=== PATIENT | female | born 1945 | race Caucasian/White ===

== ENCOUNTER 2016-12-04 11:05 | Outpatient (CLI) | payer MEDICARE ==
[2016-12-04 14:32] LABS: #Basophils 0.1 thou/uL (0.0-0.2); #Eosinphils 0.4 thou/uL (0.0-0.7); #Lymphocytes 1.8 thou/uL (1.20-3.40); #Monocytes 0.9 thou/uL (0.11-0.59); #Neutrophils 6.2 thou/uL (1.40-6.50); %Eosinophils 3.8 % (0.0-10.0); %Lymphocytes 18.9 % (21.0-51.0); %Monocytes 9.2 % (0.0-10.0); Hematocrit 38.4 % (36.0-47.0); Red Blood Cell (RBC) Count 4.01 mill/uL (4.20-5.40); White Blood Cell (WBC) Count 9.3 thou/uL (4.8-10.8)
[2016-12-04 14:58] LABS: Anion Gap 18 mmol/L (10-20); BUN (Urea Nitrogen) 21 mg/dL (9.8-20.1); Calc. Creatinine Clearance 0 mL/min (70-130); Calcium 9.1 mg/dL (7.8-10.44); Carbon Dioxide 36 mmol/L (23-31); Chloride 94 mmol/L (98-107); Estimated GFR-MDRD 47; LDL Cholesterol, Calculated 82 mg/dL
[2016-12-04 15:39] LABS: Hemoglobin A1c 5.5 % (4.0-6.0)
== END 2016-12-04 11:06 ==
LOC: NAVSJIPCSP 11:05
PROVIDERS: ATTEND Nurse Practitioner Family
DX: E11.9 Type 2 diabetes mellitus without complications (principal); I10 Essential (primary) hypertension; E78.5 Hyperlipidemia, unspecified; F32.9 Major depressive disorder, single episode, unspecified; J30.9 Allergic rhinitis, unspecified; J44.9 Chronic obstructive pulmonary disease, unspecified; Z79.899 Other long term (current) drug therapy
CPT/HCPCS: 36415; 80048; 80061; 83036; 85025

== ENCOUNTER 2017-07-09 08:48 | Outpatient (CLI) | payer MEDICARE ==
[2017-07-09 12:57] LABS: #Basophils 0.1 thou/uL (0.0-0.2); #Eosinphils 0.4 thou/uL (0.0-0.7); #Lymphocytes 2.2 thou/uL (1.20-3.40); #Monocytes 0.7 thou/uL (0.11-0.59); #Neutrophils 7.8 thou/uL (1.40-6.50); %Basophils 1.1 % (0.0-1.0); %Eosinophils 3.8 % (0.0-10.0); %Lymphocytes 19.2 % (21.0-51.0); %Monocytes 6.6 % (0.0-10.0); %Neutrophils 69.3 % (42.0-75.0); Hemoglobin 11.6 g/dL (12.0-16.0); Mean Corpuscular HGB CONC 32.1 g/dL (32.0-36.0); Mean Corpuscular Hemoglobin 30.4 pg (27.0-31.0); Mean Corpuscular Volume 94.5 fl (81.0-99.0); Mean Platelet Volume 7.4 fL (7.4-10.4); Platelet Count 275 thou/uL (130-400); RBC Distribution Width 13.2 % (11.5-14.5); Red Blood Cell (RBC) Count 3.82 mill/uL (4.20-5.40); White Blood Cell (WBC) Count 11.3 thou/uL (4.8-10.8)
[2017-07-09 13:14] LABS: Bilirubin Negative (Negative); Blood, Urine Trace (Negative); Glucose, Urine (Dipstick) Negative (Negative); Leukocyte Large (Negative); Nitrite Negative (Negative); Protein, Urine (Dipstick) Trace mg/dL (Neg-Trace); Specific Gravity, Urine 1.015 (1.005-1.030); Urobilinogen 0.2 mg/dL (0.2-1.0)
[2017-07-09 13:18] LABS: Clarity Cloudy (Clear)
[2017-07-09 14:17] LABS: RBC/HPF 0-3 HPF (0-3)
[2017-07-09 14:18] LABS: Bacteria/HPF 2+ HPF (None Seen); Squamous Epithelial 21-50 HPF (0-3); WBC/HPF 21-50 HPF (0-3)
[2017-07-09 18:13] LABS: ALT (SGPT) 16 U/L (8-55); AST (SGOT) 18 U/L (5-34); Albumin 4.3 g/dL (3.4-4.8); Alkaline Phosphatase 119 U/L (40-150); Anion Gap 22 mmol/L (10-20); BUN (Urea Nitrogen) 19 mg/dL (9.8-20.1); Bilirubin, Direct 0.2 mg/dL (0.1-0.3); Bilirubin, Total 0.4 mg/dL (0.2-1.2); Calc. Creatinine Clearance 0 mL/min (70-130); Calcium 9.5 mg/dL (7.8-10.44); Carbon Dioxide 34 mmol/L (23-31); Cardiac Risk 3.5 (Less than 4.5); Chloride 93 mmol/L (98-107); Cholesterol 141 mg/dl (< 200 Desired); Estimated GFR-MDRD 56; Glucose 95 mg/dL (80-115); HDL Cholesterol 40 mg/dL (>60 Neg Risk); LDL Cholesterol, Calculated 79 mg/dL; Potassium 3.5 mmol/L (3.5-5.1); Protein, Total 6.9 g/dL (6.0-8.3); Sodium 145 mmol/L (136-145); Triglycerides 111 mg/dL (Less than 150)
[2017-07-09 18:23] LABS: Hemoglobin A1c 5.4 % (4.0-6.0)
== END 2017-07-09 08:49 | disposition home or self-care (01) ==
LOC: NAVSJIPCSP 08:48
PROVIDERS: ATTEND Family Medicine
DX: E78.5 Hyperlipidemia, unspecified (principal); E11.9 Type 2 diabetes mellitus without complications; I10 Essential (primary) hypertension; R82.90 Unspecified abnormal findings in urine; Z79.899 Other long term (current) drug therapy
CPT/HCPCS: 36415; 80048; 80061; 80076; 81003; 81015; 83036; 84443; 85025; 87086

== ENCOUNTER 2018-08-07 17:49 | Inpatient (IN) | payer MEDICARE ==
[~2018-08-07 17:49] MED LIST: Iopamidol 370 76% 100 ML VIAL ONE
[2018-08-07 18:20] VITALS: BMI 33.0
[2018-08-07] MEDS ORDERED: Acetaminophen 500 MG TAB PO PRN (20:15)
[2018-08-07] MEDS ORDERED: Cepastat Lozenges 1 LOZ PO PRN (20:15)
[2018-08-07] MEDS ORDERED: Albuterol Sulfate 2.5 mg/3 ml Neb NEB PRN (20:15)
[2018-08-07] MEDS ORDERED: Acetaminophen 325 MG TAB PO PRN (20:16)
[2018-08-07] MEDS ORDERED: Dextrose 50% Abboject 50 ML SYRINGE SLOW IVP PRN (20:16)
[2018-08-07] MEDS ORDERED: HumaLOG 300 UNITS/3 ML VIAL SC PRN ×2 (20:16)
[2018-08-07] MEDS ORDERED: Milk Of Magnesia 30 ML UDCUP PO PRN (20:16)
[2018-08-07] MEDS ORDERED: Dextrose 5% in Water 1,000 ML IV PRN (20:16)
[2018-08-07] MEDS ORDERED: Loperamide HCl 2 MG CAP PO PRN (20:16)
[2018-08-07] MEDS: metFORMIN 500 MG TAB PO SCH (20:58)
[2018-08-07] MEDS: Melatonin 3 MG TAB PO PRN (20:58)
[2018-08-07] MEDS: Atorvastatin Calcium 20 MG TAB PO SCH (20:58)
[2018-08-07 22:21] LABS: Bilirubin Negative (Negative); Blood, Urine Negative (Negative); Clarity Clear (Clear); Glucose, Urine (Dipstick) Negative (Negative); Leukocyte Negative (Negative); Nitrite Negative (Negative); Protein, Urine (Dipstick) Negative (Neg-Trace); Urobilinogen 0.2 mg/dL (0.2-1.0)
[2018-08-07 22:23] LABS: Bacteria/HPF None Seen HPF (None Seen); RBC/HPF None Seen HPF (0-3); Squamous Epithelial None Seen HPF (0-3); WBC/HPF None Seen HPF (0-3)
[2018-08-08 05:45] LABS: #Eosinphils 0.4 thou/uL (0.0-0.7); #Lymphocytes 0.9 thou/uL (1.20-3.40); #Monocytes 0.6 thou/uL (0.11-0.59); #Neutrophils 3.8 thou/uL (1.40-6.50); %Basophils 0.7 % (0.0-1.0); %Eosinophils 6.3 % (0.0-10.0); %Lymphocytes 15.3 % (21.0-51.0); %Monocytes 10.8 % (0.0-10.0); Hemoglobin 9.2 g/dL (12.0-16.0); Mean Corpuscular HGB CONC 31.3 g/dL (32.0-36.0); Mean Corpuscular Hemoglobin 29.2 pg (27.0-31.0); Mean Corpuscular Volume 93.3 fL (78.0-98.0); Mean Platelet Volume 8.4 fL (7.4-10.4); Platelet Count 159 thou/uL (130-400); RBC Distribution Width 13.6 % (11.5-14.5); Red Blood Cell (RBC) Count 3.15 mill/uL (4.20-5.40); White Blood Cell (WBC) Count 5.7 thou/uL (4.8-10.8)
[2018-08-08 05:56] LABS: ALT (SGPT) 17 U/L (8-55); AST (SGOT) 11 U/L (5-34); Albumin 2.9 g/dL (3.4-4.8); Alkaline Phosphatase 82 U/L (40-150); Anion Gap 12 mmol/L (10-20); BUN (Urea Nitrogen) 6 mg/dL (9.8-20.1); Bilirubin, Total 0.4 mg/dL (0.2-1.2); Calc. Creatinine Clearance 87 mL/min (70-130); Calcium 8.7 mg/dL (7.8-10.44); Carbon Dioxide 27 mmol/L (23-31); Chloride 105 mmol/L (98-107); Estimated GFR-MDRD 72; Globulin 2.5 g/dL (2.4-3.5); Glucose 102 mg/dL (83-110); Potassium 4.2 mmol/L (3.5-5.1); Protein, Total 5.4 g/dL (6.0-8.3); Sodium 140 mmol/L (136-145)
[2018-08-08] MEDS ORDERED: Non-Formulary Item 1 EACH (Fluticasone/Vilanterol [Breo Ellipta 200-25 Mcg Inh] 1 EACH) IH SCH (09:00)
[2018-08-08] MEDS: Mometasone/Formoterol 60 PUFF AER INH SCH (09:27)
[2018-08-08] MEDS: FLUoxetine HCl 20 MG CAP PO SCH (09:29)
[2018-08-08] MEDS: Polyethylene Glycol 3350 17 GM Packet PO SCH (09:29)
[2018-08-08] MEDS: Potassium Chloride 10 MEQ TAB PO SCH (09:29)
[2018-08-08] MEDS: Multivitamin W/ Minerals 1 TAB PO SCH (09:29)
--- NOTE | 2018-08-08 10:25 | HP ---
DATE OF ADMISSION: 08/07/2018 HISTORY OF PRESENT ILLNESS: Ms. Garcia is a pleasant 73-year-old white female, well known to me morenita t I have been taken care for several years. She does have a history of COPD, hypertension, diabetes. The patient initially was admitted to [facility] on 07/14/2018 with community-acquired pneum onia. She has been sick for approximately 10-14 days and required BiPAP on initial admission to the hospital. She was quickly weaned to high dose oxygen and did very well. Eventually, she was stabili zed after several days and [facility]. At the rehab hospital, she was noted t o have some acute encephalopathy which had been improving. After several days, her delirium started getting worse and she stopped eating and drinking. She would not follow commands, she became hyperna tremic and very agitated, was transferred back to the hospital for further evaluation. CT scan, MRI showed no significant problems except for white matter disease. She was seen in consultation by Dr. Pierce because of her atypical delirium and mental status changes. She was treated conservatively. Eventually, her toxic metabolic encephalopathy has improved. the point that she is able to be transferred to [facility] for physical therapy and occupational therapy to increase her strength and stamina. At that time, she is alert and oriented x3 and other times she is alert an d oriented x1. PAST MEDICAL HISTORY: Positive for hypertension; COPD; GERD; hyperlipidemia; diabetes, type 2; insom odette; and chronic renal insufficiency, stage 2. Most recent diagnosis include, 1. Acute on chronic respiratory failure with hypoxemia. 2. Encephalopathy. 3. Hypernatremia. 4. Diabetes, type 2. 5. Hypertension. 6. Obesity. The patient also has had hypernatremia, acute kidney illness, hypokalemia, leukocytosis with possible leukemoid reaction and possible renal insufficiency was ruled out. PAST SURGICAL HISTORY: Positive for . FAMILY HISTORY: Reveals patient's father , but had heart disease. The patient's mother had some type of rare blood disease. The patient has 2 sons and 2 daughters. SOCIAL HISTORY: Reveals the patient is a former smoker and quit smoking in 2006, but had a 30-year h istory of smoking. She denies any drug use. Does drink 1 or 2 cups of caffeine daily. 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 She is . PRESENT MEDICATIONS: Reveal the patient presently is on the following: Tylenol 500 q.4 hours p.r.n. , albuterol 2.5 nebs q.6 hours scheduled then p.r.n., Lipitor 20 mg at bedtime, Prozac 20 mg daily, H umalog mild sliding scale, Theragran-M, melatonin 9 mg at bedtime, metformin 500 mg at bedtime inhaler 2 puffs daily, Protonix 40 mg daily, MiraLax 17 grams daily, potassium chloride 10 mEq daily, throat lozenges p.r.n. ALLERGIES: The patient has no known drug allergies. REVIEW OF SYSTEMS: Constitutional: Reveal the patient denies any fever, chills, night sweats at thi s time. She states her appetite is only fair, but she is very tired and weak. HEENT: Reveals the p atient denies any visual changes or hearing changes. Respiratory: Reveals the patient does complain of some dyspnea at times. Has no productive sputum. She does have a history of asthma and cough. Cardiovascular: The patient denies any cardiovascular problems including PND, edema, chest pain, ort hopnea, or claudication. She does have dyspnea on exertion. Gastrointestinal: The patient is negat jaun for nausea, vomiting, diarrhea, or constipation. She has poor appetite, but is improving. Genit ourinary: The patient denies nocturia, urgency, hematuria, frequency, dysuria, or incontinence. Mus culoskeletal: The patient denies any significant swelling, joint pain or stiffness, but she does hav e weakness. Skin: Denies any skin rashes. PHYSICAL EXAMINATION: GENERAL: This is a well-developed, well-nourished, slightly obese, pleasant white female, in no appa rent distress at this time. HEENT: Reveals normocephalic, nontraumatic cranium. The pupils are equally round and reactive. Ext raocular movements are intact. Nose and throat are slightly dry, but clear. NECK: Supple, without mass, nodes or bruits. LUNGS: Chest is clear to auscultation. No rales, rhonchi or wheezes are heard at this time. The pa tient's lung sounds are distant and shallow, but clear. The patient is presently on 3 liters, sattin g at 94% to 96%. HEART: Reveals a regular rate and rhythm without murmurs, gallops or rubs. ABDOMEN: Soft, obese, nontender, without organomegaly. Normal bowel sounds are noted. No rebound o r guarding is noted. : Deferred. EXTREMITIES: Reveal no clubbing, cyanosis with trace edema. NEUROLOGIC: The patient is oriented to person, place, and time and she immediately recognizes me and says my name on admission. ASSESSMENT: 1. Recent community-acquired pneumonia. 2. Acute exacerbation of chronic obstructive pulmonary disease. 3. Hypernatremia. 4. Respiratory hypoxemia. 5. Altered mental status, much improved. 6. Toxic metabolic encephalopathy. 7. Acute renal injury, much improved. 8. Diabetes, type 2. 9. Hypertension. 10. Leukocytosis, resolved. 11. Hyperlipidemia. PLAN: 1. The patient admitted to the hospital. We will continue her present medications. 2. We will consult physical therapy and occupational therapy to start her therapy. 3. We will repeat labs in the morning along with urinalysis.
[2018-08-08] MEDS ORDERED: Acetaminophen 500 MG TAB PO PRN ×2 (11:11→11:15)
--- NOTE | 2018-08-08 13:56 | PRG ---
DATE OF SERVICE: 08/08/2018 DATE OF ADMISSION: 08/07/2018 SUBJECTIVE: Ms. Garcia is a very pleasant 73-year-old white female that developed respiratory distr ess and presented to [place] [facility]. She was admitted and placed in ICU after several days. There, s he was stabilized and [facility]. In the rehab, she became delirious and had toxi c metabolic encephalopathy which got progressively worse. She was transferred back to [facility] where she spent another week before she was gradually improved to the point that she could part icipate in therapy again. She was transferred back to [facility] for PT and OT to in crease her strength and stamina hopefully for continued clearing. PHYSICAL EXAMINATION: VITAL SIGNS: Today reveal blood pressure 113/58, pulse 82-88, respirations 18-20, O2 sat 97%-99% on 2 liters, temperature 98.2. GENERAL: This is a well-developed, well-nourished, slightly obese white female that is much more sheeba ke and talkative today. She is much less irritable and encephalopathic. HEENT: Reveals normocephalic, nontraumatic cranium. Pupils are equal, round, and reactive. Extraoc ular movements intact. Nose and throat are slightly dry. NECK: Supple, without mass, nodes or bruits. CHEST: Clear to auscultation. No rales, rhonchi or wheezes are heard. HEART: Reveals a regular rate and rhythm without murmurs, gallops or rubs. ABDOMEN: Somewhat obese, soft, nontender, without organomegaly. Normal bowel sounds are noted. No rebound or guarding is noted. : Deferred. EXTREMITIES: Reveal no clubbing, cyanosis or edema. NEUROLOGIC: Patient is oriented to person, place and time. The patient recognizes me again and blake gnizes her brother. LABORATORY DATA: This morning revealed white count 5,700 with hemoglobin 9.2, hematocrit 29.4, plate let count 159,000. Chemistries reveal sodium 140, potassium 4.2, chloride 105, carbon dioxide 27 wit h creatinine of 0.79. Point of care sugar was 16. Liver enzymes are normal. IMPRESSION: 1. Recent community-acquired pneumonia requiring ICU admission. 2. Acute exacerbation of chronic obstructive pulmonary disease. 3. Hypernatremia. 4. Respiratory hypoxemia. 5. Altered mental status, much improved. 6. Toxic metabolic encephalopathy. 7. Acute renal insufficiency, improved. 8. Diabetes type 2. 9. Hypertension. 10. Leukocytosis, resolved. 11. Hyperlipidemia. 12. Generalized weakness. PLAN: 1. The patient is admitted to the hospital for PT and OT. 2. She will continue her present medication. 3. Stress ulcer prophylaxis. 4. Decubitus precautions. 5. Deep venous thrombosis prophylaxis. 6. Physical therapy and occupational therapy.
[2018-08-08] MEDS: Atorvastatin Calcium 20 MG TAB PO SCH (20:22)
[2018-08-08] MEDS: metFORMIN 500 MG TAB PO SCH (20:22)
[2018-08-08] MEDS: Melatonin 3 MG TAB PO PRN (22:23)
--- NOTE | 2018-08-09 08:17 | PRG ---
DATE OF SERVICE: 08/09/2018 SUBJECTIVE: Ms. Garcia is a very pleasant 73-year-old white female of mine that presented to the em ergency room at [place] with respiratory distress. She had community-acquired pneumonia on top of her acute exacerbation of COPD. She eventually stabilized and transferred to [facility]. S he was somewhat delirious on arrival and became worse over the next several days. She was transferre d back to [place] where she spent another week with some type of atypical delirium or mental statu s change. She is much improved and is now transferred to [facility] for PT and OT to increase her strength and stamina. The patient states she is doing well today except she did not go to bed until about 3:00 and then wok e up about 6:00 this morning. She states melatonin usually works well and she had 9 mg last night, b ut she normally takes 10-20. We will increase her to 12 mg a day. PHYSICAL EXAMINATION: VITAL SIGNS: Today reveal blood pressure is pending, pulse today 87, respirations 18, O2 sat 96% on 2 liters. GENERAL: Reveals a well-developed, well-nourished, very pleasant white female in no apparent distres s at this time. HEENT: Reveals normocephalic, nontraumatic cranium. Pupils are equally round and reactive. Extraoc ular movements intact. Nose and throat are somewhat dry, but clear. NECK: Supple, without masses, nodes or bruits. LUNGS: Chest is clear to auscultation. No rales, no rhonchi, no wheezes are heard. Breath sounds a re somewhat distant, but much improved and clear. CARDIOVASCULAR: Heart reveals a regular rate and rhythm without murmurs, gallops or rubs. ABDOMEN: Obese, soft, nontender, without organomegaly. Normal bowel sounds are heard in all 4 quadr ants. No rebound or guarding is noted. GENITOURINARY: Deferred. EXTREMITIES: Reveal no clubbing, cyanosis or edema. NEUROLOGIC: The patient is oriented to person, place, time, but she is at times somewhat confused an d delirious, but is much improved. She does recognize her son who is here this morning, Saul. LABORATORY DATA: Today reveals her Accu-Cheks were 97 yesterday morning, 160 before lunch, 111 befor e supper, 102 before bedtime and 106 this morning. We will stop her Accu-Cheks. ASSESSMENT: 1. Community-acquired pneumonia requiring ICU admission, resolved. 2. Acute exacerbation of chronic obstructive pulmonary disease, much improved. 3. Hypernatremia, stable. 4. Respiratory hypoxemia, improved. 5. Altered mental status, much improved, but not back to baseline. 6. Toxic metabolic encephalopathy, much improved. 7. Acute renal insufficiency, much improved. 8. Diabetes type 2, stable. 9. Hypertension. 10. Leukocytosis, resolved. 11. Hyperlipidemia. 12. Generalized weakness. PLAN: 1. The patient will continue present medications. 2. We will stop her Accu-Cheks a.c. and at bedtime. 3. Continue stress ulcer prophylaxis. 4. Continue decubitus precautions. 5. Continue deep venous thrombosis prophylaxis per sequential compression devices. 6. Continue physical therapy and occupational therapy. 7. Continue to monitor the patient's mental status.
[2018-08-09] MEDS: Polyethylene Glycol 3350 17 GM Packet PO SCH (08:23)
[2018-08-09] MEDS: Mometasone/Formoterol 60 PUFF AER INH SCH (08:23)
[2018-08-09] MEDS: Multivitamin W/ Minerals 1 TAB PO SCH (08:24)
[2018-08-09] MEDS: Potassium Chloride 10 MEQ TAB PO SCH (08:24)
[2018-08-09] MEDS: FLUoxetine HCl 20 MG CAP PO SCH (08:24)
[2018-08-09] MEDS: Melatonin 3 MG TAB PO SCH (20:15)
[2018-08-09] MEDS: Atorvastatin Calcium 20 MG TAB PO SCH (20:16)
[2018-08-09] MEDS: metFORMIN 500 MG TAB PO SCH (20:16)
[2018-08-10] MEDS: Multivitamin W/ Minerals 1 TAB PO SCH (08:16)
[2018-08-10] MEDS: Polyethylene Glycol 3350 17 GM Packet PO SCH (08:16)
[2018-08-10] MEDS: FLUoxetine HCl 20 MG CAP PO SCH (08:16)
[2018-08-10] MEDS: Potassium Chloride 10 MEQ TAB PO SCH (08:16)
[2018-08-10] MEDS: Mometasone/Formoterol 60 PUFF AER INH SCH (08:17)
--- NOTE | 2018-08-10 09:17 | PRG ---
DATE OF SERVICE: 08/10/2018 DATE OF ADMISSION: 08/07/2018 HISTORY OF PRESENT ILLNESS: Ms. Garcia is a very pleasant 73-year-old white female, who presented t o the emergency room at [place] with respiratory distress. She was found to have community-acquir ed pneumonia on top of her acute exacerbation of the COPD. She was stabilized and transferred to [facility] where she had significant increased delirium. She was transferred back to [place] whe re diagnosis of atypical delirium with mental status changes was noted. No changes were made. The p atient has gradually improved now. She is transferred to [facility] for continued ph ysical therapy and occupational therapy to increase her strength and stamina. Patient was found this morning at 06:15, in her room, working a puzzle on her iPad. She is much more alert and oriented x3. She is very animated and states she is going to get better. PHYSICAL EXAMINATION: VITAL SIGNS: Today, reveal blood pressure 127/64, pulse 84-91, respirations 18-19, O2 sat 95% on 2 l iters, T-max 98.3. GENERAL: This is a well-developed, well-nourished, slightly obese white female, in no apparent distr ess at this time. HEENT: Reveals normocephalic, nontraumatic cranium. Pupils equally round and reactive. Extraocular movements intact. Nose with motor are dry, but clear. NECK: Supple, without mass, nodes, or bruits. LUNGS: Chest is clear to auscultation. No rales, rhonchi, wheezes, or cough is heard. CARDIOVASCULAR: Reveals a regular rate and rhythm without murmurs, gallops, or rubs. ABDOMEN: Soft, nontender, without organomegaly. No rebound or guarding is noted. Bowel sounds in a ll 4 quadrants are noted. EXAM: Deferred. EXTREMITIES: Reveal no clubbing, cyanosis, or edema. The patient is oriented x3 at this time. She still has pressured speech. She does recognize me. ASSESSMENT: 1. Community-acquired pneumonia, requiring ICU admission, resolved. 2. Acute exacerbation of chronic obstructive pulmonary disease, much improved. 3. Hypernatremia, stable. 4. Respiratory hypoxia, stable. 5. Altered mental status continues to gradually improve. 6. Toxic metabolic encephalopathy, much improved. 7. Acute renal insufficiency, much improved. 8. Diabetes, type 2, stable. 9. Hypertension. 10. Leukocytosis, resolved. 11. Hyperlipidemia. 12. Generalized weakness. PLAN: 1. The patient will continue her present medications. 2. Continue stress ulcer prophylaxis. 3. Continue decubitus precautions. 4. Continue deep venous thrombosis prophylaxis per sequential compression device. 5. Continue PT and OT. 6. Continue to monitor the patient as to mental status.
[2018-08-10] MEDS: Atorvastatin Calcium 20 MG TAB PO SCH (20:39)
[2018-08-10] MEDS: Melatonin 3 MG TAB PO SCH (20:39)
[2018-08-10] MEDS: metFORMIN 500 MG TAB PO SCH (20:39)
[2018-08-11] MEDS: Mometasone/Formoterol 60 PUFF AER INH SCH (08:18)
[2018-08-11] MEDS: FLUoxetine HCl 20 MG CAP PO SCH (08:18)
[2018-08-11] MEDS: Multivitamin W/ Minerals 1 TAB PO SCH (08:19)
[2018-08-11] MEDS: Potassium Chloride 10 MEQ TAB PO SCH (08:19)
[2018-08-11] MEDS: Polyethylene Glycol 3350 17 GM Packet PO SCH (08:19)
--- NOTE | 2018-08-11 10:15 | PRG ---
DATE OF SERVICE: 08/11/2018 SUBJECTIVE: Ms. Garcia is a very pleasant 73-year-old white female, who presented to the emergency room at [facility] in respiratory distress. She had a community-acquired pneumonia on top o f acute exacerbation of her COPD. She was in ICU and then eventually was stabilized and [facility]. Unfortunately, she had continuing delirium, which got progressively worse. S he was transferred back to [facility] where she was diagnosed with atypical delirium and tox ic metabolic encephalopathy. She gradually began to clear and did better. She eventually was stabil ized and transferred to [facility] for continue PT and OT. The patient states she is doing well this morning. She is not confined to her bed anymore and she is not on a bed guard. She is excited about that and she is excited about getting therapy again today. OBJECTIVE: VITAL SIGNS: This morning reveal blood pressure 125/70, pulse 96, respirations 18, O2 sat 95% to 98% on 2 liters. T-max is 98.5. LABORATORY DATA: No labs were done today. We have labs ordered for tomorrow. PHYSICAL EXAMINATION: GENERAL: This is a well-developed, well-nourished, slightly obese white female in no apparent distre ss at this time. HEENT: Reveals normocephalic, nontraumatic cranium. Pupils are equally round and reactive. Extraoc ular movements intact. Nose and throat are moist today. NECK: Supple, without mass, nodes, bruits. CHEST: Clear to auscultation. No rales, rhonchi, wheezes or cough is heard. CARDIOVASCULAR: Reveals a regular rate and rhythm without murmurs, gallops or rubs. ABDOMEN: Obese, soft, nontender, without organomegaly. No rebound or guarding is noted Bowel sounds are heard in all 4 quadrants. : Deferred. EXTREMITIES: Reveal no clubbing, cyanosis or edema. The patient oriented x3 this morning. She stil l has pressured speech with much less than even yesterday. ASSESSMENT: 1. Community-acquired pneumonia, requiring ICU admission, resolved. 2. Acute exacerbation of chronic obstructive pulmonary disease, much improved. 3. Hypernatremia, improved. 4. Respiratory hypoxemia, stable. 5. Altered mental status gradually continues to improve. 6. Toxic metabolic encephalopathy, much improved. 7. Acute renal insufficiency, much improved. 8. Diabetes type 2, stable. 9. Hypertension. 10. Leukocytosis, resolved. 11. Hyperlipidemia. 12. Generalized weakness. PLAN: 1. Labs tomorrow morning. 2. Continue present medications and therapy. 3. Continue stress ulcer prophylaxis. 4. Continue decubitus precautions. 5. Continue deep venous thrombosis prophylaxis per sequential compression devices. 6. Continue PT and OT. 7. Continue to monitor the patient's mental status.
[2018-08-11] MEDS: Melatonin 3 MG TAB PO SCH (20:52)
[2018-08-11] MEDS: Atorvastatin Calcium 20 MG TAB PO SCH (20:53)
[2018-08-11] MEDS: metFORMIN 500 MG TAB PO SCH (20:53)
[2018-08-12 05:49] LABS: #Eosinphils 0.2 thou/uL (0.0-0.7); #Lymphocytes 0.9 thou/uL (1.20-3.40); #Monocytes 0.6 thou/uL (0.11-0.59); #Neutrophils 4.9 thou/uL (1.40-6.50); %Basophils 0.6 % (0.0-1.0); %Eosinophils 3.6 % (0.0-10.0); %Lymphocytes 13.8 % (21.0-51.0); %Monocytes 9.3 % (0.0-10.0); %Neutrophils 72.6 % (42.0-75.0); Hemoglobin 8.7 g/dL (12.0-16.0); Mean Corpuscular HGB CONC 31.8 g/dL (32.0-36.0); Mean Corpuscular Hemoglobin 29.1 pg (27.0-31.0); Mean Corpuscular Volume 91.5 fL (78.0-98.0); Mean Platelet Volume 6.9 fL (7.4-10.4); Platelet Count 201 thou/uL (130-400); RBC Distribution Width 13.3 % (11.5-14.5); White Blood Cell (WBC) Count 6.7 thou/uL (4.8-10.8)
[2018-08-12 06:01] LABS: ALT (SGPT) 14 U/L (8-55); AST (SGOT) 11 U/L (5-34); Alkaline Phosphatase 88 U/L (40-150); Anion Gap 11 mmol/L (10-20); BUN (Urea Nitrogen) 9 mg/dL (9.8-20.1); Bilirubin, Total 0.3 mg/dL (0.2-1.2); Calc. Creatinine Clearance 78 mL/min (70-130); Calcium 9.4 mg/dL (7.8-10.44); Carbon Dioxide 29 mmol/L (23-31); Chloride 104 mmol/L (98-107); Estimated GFR-MDRD 63; Globulin 2.7 g/dL (2.4-3.5); Glucose 105 mg/dL (83-110); Potassium 4.3 mmol/L (3.5-5.1); Protein, Total 5.7 g/dL (6.0-8.3); Sodium 140 mmol/L (136-145)
[2018-08-12] MEDS: Mometasone/Formoterol 60 PUFF AER INH SCH (08:30)
[2018-08-12] MEDS: Potassium Chloride 10 MEQ TAB PO SCH (08:30)
[2018-08-12] MEDS: Multivitamin W/ Minerals 1 TAB PO SCH (08:30)
[2018-08-12] MEDS: FLUoxetine HCl 20 MG CAP PO SCH (08:30)
[2018-08-12] MEDS: Polyethylene Glycol 3350 17 GM Packet PO SCH (08:30)
[2018-08-12] MEDS: metFORMIN 500 MG TAB PO SCH (20:36)
[2018-08-12] MEDS: Atorvastatin Calcium 20 MG TAB PO SCH (20:36)
[2018-08-12] MEDS: Melatonin 3 MG TAB PO SCH (20:36)
--- NOTE | 2018-08-12 21:59 | PRG ---
DATE OF SERVICE: 08/12/2018 DATE OF ADMISSION: 08/07/2018 HISTORY OF PRESENT ILLNESS: Ms. Garcia is a very pleasant 73-year-old white female that unfortunate ly had a community-acquired pneumonia and acute exacerbation of her COPD. She was placed in ICU at [facility], eventually stabilized and transferred to [facility]. Unfortunately, she had continued delirium and which got progressively worse. She was transferred back to [facility], where she was diagnosed with atypical delirium and toxic metabolic encephalopathy. She was eventu ally began to clear and was transferred to [facility] for continued physical therapy and occ upational therapy in the swing bed format. The patient seems to be doing much better today and she recognizes me completely. Her speech is not so forth. She states she is doing better. PHYSICAL EXAMINATION: VITAL SIGNS: Today reveal blood pressure this morning 138/61, pulse 91, respirations 18, O2 saturati on 98% on 2 liters. T-max 97.6. GENERAL: This is a well-developed, well-nourished, slightly obese white female in no apparent distre ss at this time. HEENT: Reveals normocephalic, nontraumatic cranium. Pupils are equally round and reactive. Extraoc ular movements intact. Nose and throat are slightly dry. NECK: Supple without mass, nodes, bruits. CHEST: Clear to auscultation. No rales, rhonchi, wheezes, or cough is heard. CARDIOVASCULAR: Reveals a regular rate and rhythm without murmurs, gallops, or rubs. ABDOMEN: Obese, soft, nontender without organomegaly. Normal bowel sounds are heard in all 4 quadra nts. No rebound or guarding is noted. : Deferred. EXTREMITIES: Reveal no clubbing, cyanosis, or edema. IMPRESSION: 1. Community-acquired pneumonia requiring ICU admission, resolved. 2. Acute exacerbation of chronic obstructive pulmonary disease, much improved. 3. Hypernatremia. 4. Respiratory status. 5. Altered mental status with acute delirium. 6. Toxic metabolic encephalopathy, much improved. 7. Acute renal insufficiency, much improved. 8. Diabetes, type 2. 9. Hypertension. 10. Leukocytosis. 11. Hyperlipidemia. 12. Generalized weakness. PLAN: 1. Continue present medications. 2. Continue stress ulcer prophylaxis. 3. Continue decubitus precautions. 4. Continue deep venous thrombosis prophylaxis. 5. Continue physical therapy and occupational therapy. 6. Continue to monitor the patient's mental status.
[2018-08-13] MEDS: Acetaminophen 325 MG TAB PO PRN ×2 (03:08→20:15)
[2018-08-13] MEDS: Mometasone/Formoterol 60 PUFF AER INH SCH (09:11)
[2018-08-13] MEDS: Polyethylene Glycol 3350 17 GM Packet PO SCH ×2 (09:12→09:13)
[2018-08-13] MEDS: Multivitamin W/ Minerals 1 TAB PO SCH (09:12)
[2018-08-13] MEDS: FLUoxetine HCl 20 MG CAP PO SCH (09:12)
[2018-08-13] MEDS: Potassium Chloride 10 MEQ TAB PO SCH (09:12)
[2018-08-13] MEDS: metFORMIN 500 MG TAB PO SCH (20:15)
[2018-08-13] MEDS: Atorvastatin Calcium 20 MG TAB PO SCH (20:15)
[2018-08-13] MEDS: Melatonin 3 MG TAB PO SCH (20:16)
--- NOTE | 2018-08-13 20:52 | PRG ---
DATE OF SERVICE: 08/13/2018 DATE OF ADMISSION: 08/07/2018 HISTORY OF PRESENT ILLNESS: Ms. Garcia is a very pleasant 89-year-old white female that had a commu nity-acquired pneumonia and acute exacerbation of her COPD. She had to be admitted to the intensive care unit at . She was eventually stabilized and [facility], b ut developed severe worsening delirium. She was transferred back to where diagno sis of atypical delirium and toxic metabolic encephalopathy were done. Eventually, stabilized and tr ansferred to [facility] for continued PT and OT in a swing bed format. The patient continues seem to get better mentally every day. She is slowing down and does not have p ressured speech. She is oriented x3 today. PHYSICAL EXAMINATION: VITAL SIGNS: Reveals this morning 100/56, pulse 92, respirations 20, O2 saturation 97% on 2 liters, T-max 97.9. GENERAL: This is a well-developed, well-nourished, very pleasant white female in no apparent distres s at this time. HEENT: Reveals normocephalic, nontraumatic cranium. Pupils are equally round and reactive. Extraoc ular movements intact. Nose and throat are slightly dry. NECK: Supple, without mass, nodes or bruits. CHEST: Clear to auscultation. No rales, rhonchi or wheezes are heard. HEART: Reveals a regular rate and rhythm without murmurs, gallops or rubs. ABDOMEN: Soft, nontender, without organomegaly, normal bowel sounds are noted. No rebound or guardi ng is noted. : Deferred. EXTREMITIES: Reveal no clubbing, cyanosis or edema. IMPRESSION: 1. Community-acquired pneumonia. 2. Acute exacerbation of chronic obstructive pulmonary disease. 3. Hypernatremia. 4. Respiratory status, acute respiratory failure. 5. Altered mental status with acute delirium, much improved. 6. Toxic metabolic encephalopathy, improved. 7. Acute renal insufficiency, improved. 8. Diabetes type 2. 9. Hypertension. 10. Leukocytosis. 11. Hyperlipidemia. 12. Generalized weakness. PLAN: 1. Continue present medications. 2. Continue physical therapy and occupational therapy. 3. Continue stress ulcer prophylaxis. 4. Decubitus precautions. 5. Deep venous thrombosis prophylaxis. 6. Continue to monitor the patient's mental status. 7. Anticipate discharge within the next week. 8. We will talk with physical therapy tomorrow.
[2018-08-14] MEDS: Polyethylene Glycol 3350 17 GM Packet PO SCH (09:02)
[2018-08-14] MEDS: Mometasone/Formoterol 60 PUFF AER INH SCH (09:03)
[2018-08-14] MEDS: Multivitamin W/ Minerals 1 TAB PO SCH (09:04)
[2018-08-14] MEDS: Potassium Chloride 10 MEQ TAB PO SCH (09:04)
[2018-08-14] MEDS: FLUoxetine HCl 20 MG CAP PO SCH (09:04)
--- NOTE | 2018-08-14 14:44 | PRG ---
DATE OF SERVICE: 08/14/2018. SUBJECTIVE: Ms. Garcia is a very pleasant 73-year-old white female that comes in with community-acq uired pneumonia and acute exacerbation of her COPD. She was admitted to [facility]. Eventu ally, she was stabilized and [facility] Unfortunately, she developed severe atyp ical delirium and had to be transferred back to [facility]. She was stabilized and then was transferred to [facility] to continue PT and OT. The patient seems to be getting a little bit better every day. She has slowed, pressured speech and she began to be able to participate much better in her physical therapy and occupational therapy. Sh e states she walked the nurse's station twice with only one rest. OBJECTIVE: VITAL SIGNS: Reveal blood pressure this morning was 138/62, pulse 100, respirations 20, O2 sat 97%-9 9% on 2 liters. T-max 96.3. GENERAL: This is a well-developed, well-nourished, very pleasant, slightly obese white female in no apparent distress at this time. HEENT: Reveals normocephalic, nontraumatic cranium. Pupils are equally round and reactive. Extraoc ular movements are intact. Nose and throat are slightly dry. NECK: Supple, without mass, nodes or bruits. CHEST: Clear to auscultation. No rales, rhonchi or wheezes are heard. CARDIOVASCULAR: Heart reveals a regular rate and rhythm without murmurs, gallops or rubs. ABDOMEN: Soft, nontender, without organomegaly, normal bowel sounds are noted. No rebound or guardi ng is noted. GENITOURINARY: Deferred. EXTREMITIES: Reveal no clubbing, cyanosis or edema. ASSESSMENT: 1. Community-acquired pneumonia, much improved. 2. Acute exacerbation of chronic obstructive pulmonary disease. 3. Hypernatremia. 4. Respiratory status with acute respiratory failure. 5. Altered mental status with acute delirium significantly improved, but not back to baseline yet. 6. Toxic metabolic encephalopathy, continues to improve. 7. Acute renal insufficiency, stable. 8. Diabetes type 2. 9. Hypertension. 10. Leukocytosis. 11. Hyperlipidemia. 12. Generalized weakness. PLAN: 1. Continue present medication. 2. Continue stress ulcer prophylaxis. 3. Continue decubitus precautions. 4. Continue deep venous thrombosis prophylaxis. 5. Continue to monitor the patient's mental status. 6. Continue physical therapy and occupational therapy. 7. Anticipate discharge next week. 8. Will discuss with physical therapy again.
[2018-08-14] MEDS: Atorvastatin Calcium 20 MG TAB PO SCH (21:29)
[2018-08-14] MEDS: metFORMIN 500 MG TAB PO SCH (21:29)
[2018-08-14] MEDS: Melatonin 3 MG TAB PO SCH (22:12)
[2018-08-15] MEDS: Potassium Chloride 10 MEQ TAB PO SCH (09:37)
[2018-08-15] MEDS: FLUoxetine HCl 20 MG CAP PO SCH (09:37)
[2018-08-15] MEDS: Multivitamin W/ Minerals 1 TAB PO SCH (09:37)
[2018-08-15] MEDS: Mometasone/Formoterol 60 PUFF AER INH SCH (09:37)
[2018-08-15] MEDS: Polyethylene Glycol 3350 17 GM Packet PO SCH (09:38)
--- NOTE | 2018-08-15 18:16 | PRG ---
DATE OF SERVICE: 08/15/2018 DATE OF ADMISSION: 08/07/2018 HISTORY OF PRESENT ILLNESS: Ms. Garcia is a very pleasant 73-year-old white female that presented t o [facility] with community-acquired pneumonia and acute exacerbation of her COPD. Juan Pablo travis was admitted and stabilized. [facility], but developed an atyp ical delirium. She had to be transferred back to [place] where she was stabilized and [place] [facility] [place] and occupational therapy. Postoperatively, tess franklin is doing very well. OBJECTIVE: VITAL SIGNS: Today reveal blood pressure 126/58, pulse 97, respirations 18, O2 sat 96% on 2 liters, T-max 98. GENERAL: This is a well-developed, well-nourished, slightly obese white female in no apparent distre ss at this time. HEENT: Reveals normocephalic, nontraumatic cranium. Pupils equal, round, and reactive. Extraocular movements intact. Nose and throat are slightly dry. NECK: Supple, without mass, nodes or bruits. CHEST: Clear to auscultation. No rales, rhonchi or wheezes are heard. CARDIOVASCULAR: Reveals a regular rate and rhythm without murmurs, gallops or rubs. ABDOMEN: Soft, nontender, no rebound or guarding is noted. GENITOURINARY: Deferred. EXTREMITIES: Reveal no clubbing, cyanosis or edema. IMPRESSION: 1. Community-acquired pneumonia, much improved. 2. Acute exacerbation of chronic obstructive pulmonary disease. 3. Respiratory failure, much improved. 4. Hypernatremia. 5. Altered mental status with acute delirium, significantly improved. 6. Toxic metabolic encephalopathy. 7. Acute renal insufficiency. 8. Diabetes type 2. 9. Hypertension. 10. Leukocytosis. 11. Hyperlipidemia. 12. Generalized weakness. PLAN: 1. Continue present medication. 2. Continue stress ulcer prophylaxis. 3. Continue decubitus precautions. 4. Continue DVT prophylaxis. 5. Continue to monitor the patient's mental status. 6. Continue PT and OT. 7. Anticipate discharge most likely on Saturday.
[2018-08-15] MEDS: Atorvastatin Calcium 20 MG TAB PO SCH (21:15)
[2018-08-15] MEDS: metFORMIN 500 MG TAB PO SCH (21:15)
[2018-08-15] MEDS: Melatonin 3 MG TAB PO SCH (22:13)
[2018-08-16] MEDS: Mometasone/Formoterol 60 PUFF AER INH SCH (09:10)
[2018-08-16] MEDS: FLUoxetine HCl 20 MG CAP PO SCH (09:10)
[2018-08-16] MEDS: Multivitamin W/ Minerals 1 TAB PO SCH (09:11)
[2018-08-16] MEDS: Potassium Chloride 10 MEQ TAB PO SCH (09:12)
[2018-08-16] MEDS: Polyethylene Glycol 3350 17 GM Packet PO SCH (09:12)
--- NOTE | 2018-08-16 09:17 | PRG ---
DATE OF SERVICE: 08/16/2018 DATE OF ADMISSION: 08/07/2018 SUBJECTIVE: Ms. Garcia is a very pleasant 73-year-old white female with respiratory distress syndro me. She has had acute exacerbation of her COPD and community-acquired pneumonia. She was admitted t [facility]. She was [facility], but developed acute atypi di delirium. She had to be transferred back to [facility] where she was stabilized. She e ventually improved significantly with delirium and was transferred to [facility] for continued PT and OT. Postoperatively, she is doing very well. OBJECTIVE: VITAL SIGNS: Today, reveal blood pressure 134/63, pulse 91, respirations 18, O2 saturation 98% on 2 liters, T-max 98.2. GENERAL: This is a well-developed, well-nourished, very pleasant white female, in no apparent distre ss at this time. HEENT: Reveals normocephalic, nontraumatic cranium. Pupils equally round and reactive. Extraocular movements intact. Nose and throat are slightly dry. NECK: Supple, without masses, nodes, or bruits. CHEST: Clear to auscultation. No rales, rhonchi, or wheezes are heard. CARDIOVASCULAR: Reveals a regular rate and rhythm without murmurs, gallops, or rubs. ABDOMEN: Soft, nontender, without organomegaly, normal bowel sounds are noted. EXAM: Deferred. EXTREMITIES: Reveal no clubbing, cyanosis, or edema. NEUROLOGIC: The patient neurologically is much improved. IMPRESSION: 1. Community-acquired pneumonia, much improved. 2. Acute exacerbation of chronic obstructive pulmonary disease, much improved. 3. Respiratory failure, resolved. 4. Hypernatremia. 5. Altered mental status with acute delirium, much improved. 6. Toxic metabolic encephalopathy, resolved. 7. Acute renal insufficiency. 8. Diabetes, type 2. 9. Hypertension. 10. Leukocytosis, resolved. 11. Hyperlipidemia. 12. Generalized weakness. PLAN: 1. Continue present medications. 2. Continue to monitor the patient closely. 3. Stress ulcer prophylaxis. 4. Decubitus precautions. 5. Deep venous thrombosis prophylaxis. 6. Monitor the patient's mental status. 7. Continue physical therapy and occupational therapy. 8. Anticipate discharge middle of next week.
[2018-08-16] MEDS: Atorvastatin Calcium 20 MG TAB PO SCH (21:21)
[2018-08-16] MEDS: metFORMIN 500 MG TAB PO SCH (21:21)
[2018-08-16] MEDS: Melatonin 3 MG TAB PO SCH (22:05)
--- NOTE | 2018-08-17 09:25 | PRG ---
DATE OF SERVICE: 08/17/2018 DATE OF ADMISSION: 08/07/2018 HISTORY OF PRESENT ILLNESS: Ms. Garcia is a very pleasant 73-year-old white female that had communi ty-acquired pneumonia and acute exacerbation of her COPD. She was transferred to [facility] where she was treated for a short period of time in the ICU and then stabilized. She was transferre d to [facility], but had progressive acute atypical delirium. She had to be transfe rred back to [facility] where when she was eventually seen by Neurology and stabilized. She was fine and stable and was transferred to [facility]. Continue physical therapy an d occupational therapy and that her delirium clear. Postoperatively, she is actually doing very well . SUBJECTIVE: She states she had a good day yesterday and she is looking forward to going home on . PHYSICAL EXAMINATION: VITAL SIGNS: Reveal blood pressure is 157/73, pulse 91-95, respirations 18-20, O2 sat 96%-99% on 2 l iters, T-max is 99.2. GENERAL: This is a well-developed, well-nourished, very pleasant white female in no apparent distres s at this time. HEENT: Reveals normocephalic, nontraumatic cranium. Pupils equal, round, and reactive. Extraocular movements intact. Nose and throat are slightly dry. NECK: Supple, without mass, nodes or bruits. CHEST: Clear to auscultation. No rales, rhonchi or wheezes are heard. HEART: Reveals a regular rate and rhythm without murmurs, gallops or rubs. ABDOMEN: Soft, obese, nontender, without organomegaly, normal bowel sounds are noted. No rebound or guarding is noted. : Deferred. EXTREMITIES: Reveal no clubbing, cyanosis or edema. NEUROLOGIC: The patient continues to be much improved. IMPRESSION: 1. Community-acquired pneumonia, resolved. 2. Acute exacerbation of chronic obstructive pulmonary disease, resolved. 3. Respiratory failure, resolved. 4. Hypernatremia, resolved. 5. Altered mental status with acute delirium, significantly improved. 6. Toxic metabolic encephalopathy, resolved. 7. Acute renal insufficiency, resolved. 8. Diabetes type 2, stable. 9. Hypertension, stable. 10. Leukocytosis, stable. 11. Hyperlipidemia, stable. 12. Generalized weakness. PLAN: 1. Continue present medications. 2. Continue to monitor the patient closely. 3. Stress ulcer prophylaxis. 4. Decubitus precautions. 5. Deep venous thrombosis prophylaxis. 6. Continue to monitor the patient's mental status. 7. Continue physical therapy and occupational therapy. 8. Anticipate discharge Saturday or Saturday.
[2018-08-17] MEDS: Mometasone/Formoterol 60 PUFF AER INH SCH (09:41)
[2018-08-17] MEDS: Multivitamin W/ Minerals 1 TAB PO SCH (09:41)
[2018-08-17] MEDS: FLUoxetine HCl 20 MG CAP PO SCH (09:41)
[2018-08-17] MEDS: Polyethylene Glycol 3350 17 GM Packet PO SCH (09:41)
[2018-08-17] MEDS: Potassium Chloride 10 MEQ TAB PO SCH (09:41)
[2018-08-17] MEDS: Atorvastatin Calcium 20 MG TAB PO SCH (21:06)
[2018-08-17] MEDS: metFORMIN 500 MG TAB PO SCH (21:06)
[2018-08-17] MEDS: Melatonin 3 MG TAB PO SCH (22:06)
[2018-08-18] MEDS: Potassium Chloride 10 MEQ TAB PO SCH (09:57)
[2018-08-18] MEDS: Multivitamin W/ Minerals 1 TAB PO SCH (09:57)
[2018-08-18] MEDS: Polyethylene Glycol 3350 17 GM Packet PO SCH (09:57)
[2018-08-18] MEDS: FLUoxetine HCl 20 MG CAP PO SCH (09:57)
[2018-08-18] MEDS: Mometasone/Formoterol 60 PUFF AER INH SCH (09:57)
[2018-08-18 11:28] LABS: #Basophils 0.1 thou/uL (0.0-0.2); #Eosinphils 0.1 thou/uL (0.0-0.7); #Lymphocytes 1.1 thou/uL (1.20-3.40); #Monocytes 0.9 thou/uL (0.11-0.59); #Neutrophils 8.7 thou/uL (1.40-6.50); %Basophils 0.7 % (0.0-1.0); %Eosinophils 0.8 % (0.0-10.0); %Lymphocytes 9.8 % (21.0-51.0); %Monocytes 8.6 % (0.0-10.0); %Neutrophils 80.1 % (42.0-75.0); Hemoglobin 8.8 g/dL (12.0-16.0); Mean Corpuscular HGB CONC 32.5 g/dL (32.0-36.0); Mean Corpuscular Hemoglobin 29.1 pg (27.0-31.0); Mean Corpuscular Volume 89.7 fL (78.0-98.0); Mean Platelet Volume 5.9 fL (7.4-10.4); Platelet Count 393 thou/uL (130-400); RBC Distribution Width 13.2 % (11.5-14.5); Red Blood Cell (RBC) Count 3.03 mill/uL (4.20-5.40); White Blood Cell (WBC) Count 10.8 thou/uL (4.8-10.8)
[2018-08-18 11:43] LABS: ALT (SGPT) 17 U/L (8-55); AST (SGOT) 13 U/L (5-34); Albumin 3.3 g/dL (3.4-4.8); Alkaline Phosphatase 97 U/L (40-150); Anion Gap 13 mmol/L (10-20); BUN (Urea Nitrogen) 8 mg/dL (9.8-20.1); Bilirubin, Total 0.4 mg/dL (0.2-1.2); Calc. Creatinine Clearance 69 mL/min (70-130); Calcium 9.8 mg/dL (7.8-10.44); Carbon Dioxide 29 mmol/L (23-31); Chloride 100 mmol/L (98-107); Estimated GFR-MDRD 55; Globulin 3.3 g/dL (2.4-3.5); Glucose 126 mg/dL (83-110); Potassium 4.3 mmol/L (3.5-5.1); Protein, Total 6.6 g/dL (6.0-8.3); Sodium 138 mmol/L (136-145)
[2018-08-18] MEDS: Melatonin 3 MG TAB PO SCH (20:05)
[2018-08-18] MEDS: Atorvastatin Calcium 20 MG TAB PO SCH (20:05)
[2018-08-18] MEDS: metFORMIN 500 MG TAB PO SCH (20:06)
[2018-08-19 08:27] VITALS: BP 131/66; TEMP 98.3
[2018-08-19] MEDS: FLUoxetine HCl 20 MG CAP PO SCH (09:32)
[2018-08-19] MEDS: Potassium Chloride 10 MEQ TAB PO SCH (09:32)
[2018-08-19] MEDS: Mometasone/Formoterol 60 PUFF AER INH SCH (09:32)
[2018-08-19] MEDS: Multivitamin W/ Minerals 1 TAB PO SCH (09:32)
[2018-08-19] MEDS: Polyethylene Glycol 3350 17 GM Packet PO SCH (09:33)
[2018-08-19] MEDS ORDERED: Albuterol Sulfate 2.5 mg/3 ml Neb NEB PRN (11:15)
--- NOTE | 2018-08-19 13:32 | DIS ---
DATE OF ADMISSION: 08/07/2018 DATE OF DISCHARGE: 08/19/2018 HOSPITAL COURSE: Ms. Garcia is a very pleasant 73-year-old white female that was initially admitted to [facility] with bad COPD exacerbation along with community-acquired pneumonia. She was stabilized and [facility]. Unfortunately, she developed intractable d elirium and was transferred back to [facility]. She was stabilized and eventually transferr ed back to [facility] for physical therapy and occupational therapy. The patient's sensorium is significant clear. She is back to her baseline at this time. She is walk ing and doing well. She is ready for discharge. LABORATORY DATA: Yesterday morning was a white count 10,000 with hemoglobin 8.8, hematocrit 27.2 and a platelet count 393,000. Sodium is 138, potassium 4.3, chloride 100, carbon dioxide 29 with a BUN of 8, creatinine 0.99. Suga r was 26. PHYSICAL EXAMINATION: VITAL SIGNS: Reveal blood pressure this morning was 131/66, pulse 90-94, respirations 18-20, O2 sat 97%-98% on 2 liters, T-max is 99.0. GENERAL: This is well-developed, well-nourished, very pleasant white female in no apparent distress at this time. HEENT: Reveals normocephalic, nontraumatic cranium. Pupils equal, round, reactive. Extraocular mov ements intact. Nose and throat are slightly dry. NECK: Supple, without mass, nodes or bruits. CHEST: Clear to auscultation. No rales, rhonchi, wheezes or cough is heard. HEART: Reveals a regular rate and rhythm without murmurs, gallops or rubs. ABDOMEN: Soft, obese, nontender, without organomegaly, normal bowel sounds are noted. No rebound or guarding is noted. GENITOURINARY: Deferred. EXTREMITIES: Reveals no clubbing, cyanosis or edema. NEUROLOGIC: The patient is back to her baseline. DISCHARGE MEDICATIONS: Include the following; 1. Tylenol p.r.n. 2. Ventolin nebulizer treatments up to 4 times a day and use p.r.n. 3. DuoNeb p.r.n. 4. Lipitor 20 mg every evening. 5. Prozac 20 mg every day. 6. Imodium p.r.n. 7. Milk of Magnesia p.r.n. 8. Melatonin 12 mg at bedtime. 9. Glucophage 500 mg daily at bedtime. 10. Dulera 1 puff daily. 11. Protonix 40 mg daily. 12. MiraLax p.r.n. 13. Potassium 10 mEq p.r.n. 14. Throat lozenges. ASSESSMENT: 1. Acute exacerbation of chronic obstructive pulmonary disease, much improved. 2. Community-acquired pneumonia, resolved. 3. Respiratory failure, resolved. 4. Hyponatremia, resolved. 5. Acute delirium significantly improved back to baseline pretty much resolved. 6. Toxic metabolic encephalopathy, resolved. 7. Acute renal insufficiency, resolved. 8. Diabetes type 2, stable. 9. Hypertension, stable. 10. Leukocytosis, resolved. 11. Hyperlipidemia, stable. 12. Generalized weakness. PLAN: 1. The patient will be discharged today. 2. She will continue present medications. 3. Continue to have physical therapy and occupational therapy at home. 4. Stress ulcer prophylaxis. 5. Decubitus precautions. 6. Continue to monitor the patient's mental status per the family. 7. Continue physical therapy and occupational therapy. 8. See me in about a week.
== END 2018-08-19 13:46 | disposition home health service (06) | DRG 947 ==
LOC: NAV ACUTE 17:49
PROVIDERS: ADMIT Family Medicine; ATTEND Family Medicine
DX: R53.1 Weakness (principal); G92 Toxic encephalopathy; J44.1 Chronic obstructive pulmonary disease with (acute) exacerbation; E87.0 Hyperosmolality and hypernatremia; E87.1 Hypo-osmolality and hyponatremia; J96.11 Chronic respiratory failure with hypoxia; N17.9 Acute kidney failure, unspecified; I10 Essential (primary) hypertension; E11.9 Type 2 diabetes mellitus without complications; K21.9 Gastro-esophageal reflux disease without esophagitis; E78.5 Hyperlipidemia, unspecified; G47.00 Insomnia, unspecified; E66.9 Obesity, unspecified; Z87.891 Personal history of nicotine dependence; Z87.01 Personal history of pneumonia (recurrent); Z68.33 Body mass index [BMI] 33.0-33.9, adult
CPT/HCPCS: 36416; 80053; 81001; 85025; 94640; J7620

== ENCOUNTER 2019-09-04 10:25 | Outpatient (CLI) | payer MEDICARE ==
--- NOTE | 2019-09-04 13:00 | CT ---
CT CHEST WITH IV CONTRAST: DATE: 09/04/2019. PROVIDED CLINICAL HISTORY: Followup lung nodules. FINDINGS: Comparison is made with the study dated 03/31/2019. The heart, pericardium, and great vessels demonstrate an unremarkable CT appearance with the exceptio n of vascular calcification including minimal coronary calcium. There is no evidence for thoracic lymph node enlargement. There is interval improvement in left basilar tree-in-bud nodularity. Resolution of the largest focu s of somewhat rounded consolidation seen on the prior examination. Persistent tree-in-bud nodularity is present. The lungs remain otherwise free of significant opacity. The airway appears patent and of normal caliber. There is no pleural fluid or pneumothorax evident. The visualized portions of the upper abdomen demonstrate an unremarkable CT appearance with the excep tion of a small hiatal hernia. The osseous structures demonstrate no concerning osteoblastic or osteolytic lesions. IMPRESSION: 1. Improved but persistent left basilar tree-in-bud nodularity. Findings are typical for infectious pneumonitis with organisms such as MAC. Pulmonary consultation may be useful. 2. Other chronic findings as above. POS: OFF
== END 2019-09-04 10:26 | disposition home or self-care (01) ==
LOC: NAV CT 10:25
PROVIDERS: ATTEND Family Medicine
DX: Z01.818 Encounter for other preprocedural examination (principal); R93.89 Abnormal findings on diagnostic imaging of other specified body structures; J18.9 Pneumonia, unspecified organism
CPT/HCPCS: 36415; 71260; 82565; Q9967

== ENCOUNTER 2020-02-02 14:06 | Inpatient (IN) | payer MEDICARE ==
--- NOTE | 2020-02-02 15:00 | RAD ---
EXAM: Chest 2 views: HISTORY: Shortness of breath COMPARISON: 07/15/2018 FINDINGS: Overall stable appearing increased linear and interstitial parenchymal changes particularly in the ba ses, left greater than right. Heart size:Within normal limits. Lungs:Clear of acute process. Atherosclerotic changes of the aorta. No confluent pneumonia, overt edema, pleural effusion, pneumothorax, or other significant acute proce ss. IMPRESSION: Overall stable exam. Atherosclerosis of the aorta. No acute intrathoracic disease.
[2020-02-02 15:01] LABS: #Basophils 0.1 thou/uL (0.0-0.2); #Eosinphils 0.3 thou/uL (0.0-0.7); #Lymphocytes 1.7 thou/uL (1.20-3.40); #Neutrophils 11.2 thou/uL (1.40-6.50); %Basophils 0.8 % (0.0-1.0); %Eosinophils 1.8 % (0.0-10.0); %Lymphocytes 12.2 % (21.0-51.0); %Monocytes 6.8 % (0.0-10.0); %Neutrophils 78.5 % (42.0-75.0); Hemoglobin 10.5 g/dL (12.0-16.0); Mean Corpuscular HGB CONC 32.8 g/dL (32.0-36.0); Mean Corpuscular Hemoglobin 29.8 pg (27.0-31.0); Mean Platelet Volume 7.2 fL (7.4-10.4); Platelet Count 355 thou/uL (130-400); RBC Distribution Width 12.9 % (11.5-14.5); Red Blood Cell (RBC) Count 3.51 mill/uL (4.20-5.40); White Blood Cell (WBC) Count 14.2 thou/uL (4.8-10.8)
[2020-02-02 15:12] LABS: ALT (SGPT) 18 U/L (8-55); AST (SGOT) 13 U/L (5-34); Albumin 3.7 g/dL (3.4-4.8); Alkaline Phosphatase 105 U/L (40-110); Anion Gap 16 mmol/L (10-20); BUN (Urea Nitrogen) 17 mg/dL (9.8-20.1); Bilirubin, Total 0.3 mg/dL (0.2-1.2); Calc. Creatinine Clearance 0 mL/min (70-130); Calcium 9.9 mg/dL (7.8-10.44); Carbon Dioxide 32 mmol/L (23-31); Chloride 92 mmol/L (98-107); Estimated GFR-MDRD 66; Globulin 3.3 g/dL (2.4-3.5); Glucose 149 mg/dL (83-110); Lipase 31 U/L (8-78); Potassium 3.1 mmol/L (3.5-5.1); Sodium 137 mmol/L (136-145)
[2020-02-02] MEDS ORDERED: cefTRIAXone\\ROCEPHIN 2 GM VIAL ONE (15:14)
[2020-02-02] MEDS ORDERED: Acetaminophen 500 MG TAB ONE (15:14)
[2020-02-02] MEDS ORDERED: Azithromycin 500 MG VIAL ONE (15:14)
[2020-02-02] MEDS ORDERED: Sodium Chloride 0.9% 250 ML 250 ML ONE (15:15)
[2020-02-02] MEDS ORDERED: Sodium Chloride 0.9% 100 ML ONE (15:15)
[2020-02-02 15:39] LABS: Bilirubin Negative (Negative); Blood, Urine Negative (Negative); Clarity Clear (Clear); Glucose, Urine (Dipstick) Negative (Negative); Leukocyte Negative (Negative); Nitrite Negative (Negative); Protein, Urine (Dipstick) Negative (Neg-Trace)
[2020-02-02] MEDS ORDERED: Albuterol Sulfate 2.5 mg/0.5 ml Neb ONE (15:47)
[2020-02-02] MEDS ORDERED: methylPREDNISolone Sod Succ/PF 125 MG/2 ML VIAL ONE (16:09)
[2020-02-02] MEDS ORDERED: Sodium Chloride 0.9% 1,000 ML ONE (16:09)
[2020-02-02 18:59] VITALS: BMI 34.8
[2020-02-02] MEDS ORDERED: Albuterol Sulfate 2.5 mg/3 ml Neb NEB PRN (19:18)
[2020-02-02] MEDS ORDERED: Acetaminophen 325 MG TAB PO PRN (19:19)
[2020-02-02] MEDS ORDERED: Loperamide HCl 2 MG CAP PO PRN (19:45)
[2020-02-02] MEDS ORDERED: Senokot S 8.6-50 MG TAB PO PRN (19:45)
[2020-02-02] MEDS ORDERED: Ondansetron ODT 4 MG TAB SL PRN (19:45)
[2020-02-02] MEDS: Carvedilol 25 MG TAB PO SCH (21:09)
[2020-02-02] MEDS: metFORMIN 500 MG TAB PO SCH (21:09)
[2020-02-02] MEDS: Atorvastatin Calcium 20 MG TAB PO SCH (21:09)
[2020-02-02] MEDS: Melatonin 3 MG TAB PO PRN (22:38)
[2020-02-03] MEDS: methylPREDNISolone Sod Succ 40 MG VIAL IVP SCH ×4 (00:37→18:10)
--- NOTE | 2020-02-03 02:35 | HP ---
HISTORY OF PRESENT ILLNESS: Ms. Garcia is a very pleasant 74-year-old white female, who presented to the emergency room after having shortness of breath for over a week. She could not walk really over 5 feet without getting short of breath. Her sats on 2 L were 86%. She had diffuse rales, rhonchi, and wheezes all over and increased cough. She had a rectal temperature of 100.4, thought to be possibly septic. She was given DuoNebs treatment with an albuterol, IV steroids, IV Zithromax, and IV Rocephin. Her flu was negative. Her white blood cell count was 14,200, lactate was 1.2. Potassium was slightly low at 3.1. Her troponin I was negative. She was evaluated and felt to be having acute exacerbation of her COPD. She was admitted to the hospital from the ER to my service since she is routinely one of my patients. She has previously been hospitalized with COPD exacerbation and pneumonia. PAST MEDICAL HISTORY: Positive for; 1. COPD. 2. Hypertension. 3. GERD. 4. Hyperlipidemia. 5. Insomnia. 6. Type 2 diabetes. 7. Mild intermittent asthma. PAST SURGICAL HISTORY: . FAMILY HISTORY: Reveals the patient's father at age 85 with heart disease. The patient's mother at age 64 with some type of rare blood disease along with heart failure and kidney failure. The patient has 2 sons and 2 daughters are alive and healthy. She has 1 brother, who is healthy. SOCIAL HISTORY: Reveals the patient is a former smoker and stopped in 2006. She smoked a pack a day for 50 years. Does not drink. She is . Uses no drugs. ALLERGIES: THE PATIENT HAS NO KNOWN DRUG ALLERGIES. REVIEW OF SYSTEMS: CONSTITUTIONAL: Reveals the patient has some subjective fever and chills. She has felt very weak and significantly short of breath. HEENT: No headaches. She had no visual changes or hearing changes. RESPIRATORY: She has had increasing rhinorrhea, but mainly dyspnea on exertion along with constant productive cough and wheezing. She has been short of breath, which has gotten excessively worse. CHEST: She denies chest pain, orthopnea, or claudication. GI: Denies nausea, vomiting, diarrhea, constipation, bloody or black tarry stools. Denies nocturia, urgency, hematuria, frequency, dysuria, or incontinence. She states she is slightly achy but just very weak. SKIN: Denies any skin rashes. Denies any skin lesions. LABORATORY DATA: Reveals white count 14,200, hemoglobin 10.5, hematocrit 32.0 with platelet count 355,000. The patient has 78.5 neutrophils and 12.2 lymphocytes. Sodium is 137, potassium 3.1, chloride 92, carbon dioxide 32, BUN 17, creatinine 0.85. GFR 66. Sugars 149. Lactic acid 1.2. Liver enzymes are within normal limits. Urinalysis is unremarkable. PHYSICAL EXAMINATION: GENERAL: This is a well-developed, well-nourished, very pleasant 74-year-old white female, presently feeling much better, in no apparent distress. HEENT: Reveals normocephalic and nontraumatic cranium. The pupils are equally round and reactive. Extraocular movements are intact. Nose and throat are dry. NECK: Supple without masses, nodes, or bruits. CHEST: Clear to auscultation. No rales, rhonchi, or wheezes are heard at this time, but the patient had significant wheezing along with rhonchi and congestion until she had multiple breathing treatments including IV steroids and IV antibiotics. ASSESSMENT: 1. Acute exacerbation of chronic obstructive pulmonary disease. 2. Possible pneumonia. 3. Hypertension. 4. Type 2 diabetes. 5. Hyperlipidemia. 6. Intermittent asthma. 7. Leukocytosis. PLAN: 1. The patient is admitted to the hospital. We will continue handheld nebulizers with steroids. 2. We will continue IV steroids and IV Rocephin along with IV Zithromax. Repeat an x-ray tomorrow morning. Repeat labs tomorrow morning. The patient's potassium was low, but she was given potassium in the ER. We will repeat that tomorrow morning also. 3. The patient will get some extensive therapy. We will try to turn this around within the next 2 or 3 days. Job ID: [id number]
[2020-02-03] MEDS: Arformoterol 15 MCG/2 ML NEB NEB SCH ×2 (05:59→18:09)
[2020-02-03 06:44] LABS: #Lymphocytes 0.8 thou/uL (1.20-3.40); #Monocytes 0.2 thou/uL (0.11-0.59); #Neutrophils 10.4 thou/uL (1.40-6.50); %Basophils 0.3 % (0.0-1.0); %Lymphocytes 6.9 % (21.0-51.0); %Monocytes 1.3 % (0.0-10.0); %Neutrophils 91.5 % (42.0-75.0); Hemoglobin 10.7 g/dL (12.0-16.0); Mean Corpuscular HGB CONC 31.4 g/dL (32.0-36.0); Mean Corpuscular Hemoglobin 28.7 pg (27.0-31.0); Mean Corpuscular Volume 91.3 fL (78.0-98.0); Mean Platelet Volume 7.2 fL (7.4-10.4); Platelet Count 355 thou/uL (130-400); RBC Distribution Width 12.9 % (11.5-14.5); Red Blood Cell (RBC) Count 3.72 mill/uL (4.20-5.40); White Blood Cell (WBC) Count 11.3 thou/uL (4.8-10.8)
[2020-02-03 07:03] LABS: ALT (SGPT) 21 U/L (8-55); AST (SGOT) 15 U/L (5-34); Alkaline Phosphatase 90 U/L (40-110); Anion Gap 16 mmol/L (10-20); BUN (Urea Nitrogen) 17 mg/dL (9.8-20.1); Bilirubin, Total 0.2 mg/dL (0.2-1.2); Calc. Creatinine Clearance 88 mL/min (70-130); Calcium 9.3 mg/dL (7.8-10.44); Carbon Dioxide 32 mmol/L (23-31); Chloride 96 mmol/L (98-107); Estimated GFR-MDRD 72; Globulin 3.2 g/dL (2.4-3.5); Glucose 167 mg/dL (83-110); Potassium 3.9 mmol/L (3.5-5.1); Protein, Total 7.2 g/dL (6.0-8.3); Sodium 140 mmol/L (136-145)
[2020-02-03] MEDS: Potassium Chloride 10 MEQ TAB PO SCH (08:53)
[2020-02-03] MEDS: Hydrochlorothiazide 25 MG TAB PO SCH (08:53)
[2020-02-03] MEDS: FLUoxetine HCl 20 MG CAP PO SCH (08:53)
[2020-02-03] MEDS: Carvedilol 25 MG TAB PO SCH ×2 (08:54→20:07)
[2020-02-03] MEDS: Lisinopril 20 MG TAB PO SCH (08:54)
[2020-02-03] MEDS: Azithromycin 500 MG in Sodium Chloride 0.9% 250 ML 250 ML IVPB SCH (15:35)
[2020-02-03] MEDS: cefTRIAXone\\ROCEPHIN 1 GM in Sodium Chloride 0.9% 100 ML IVPB SCH (17:00)
[2020-02-03] MEDS: metFORMIN 500 MG TAB PO SCH (20:08)
[2020-02-03] MEDS: Melatonin 3 MG TAB PO PRN (20:08)
[2020-02-03] MEDS: Atorvastatin Calcium 20 MG TAB PO SCH (20:08)
--- NOTE | 2020-02-03 20:58 | PRG ---
DATE OF SERVICE: 02/03/2020 SUBJECTIVE: Ms. Garcia is a very pleasant 74-year-old white female, who presented to the emergency room after 7 days of shortness of breath, which is increasing. She was not able to walk over 5 feet without getting shortness of breath and increased cough. She had rales, rhonchi, and diffuse wheezes all over. She had a rectal temperature of 100.4. X-ray and all of her flus and streps were unremarkable. It was felt that she had most likely acute exacerbation of her COPD. She was started on IV Rocephin, Zithromax, and IV steroids. White count was slightly elevated at 14,200. Potassium was low. She was admitted to the hospital for hydration, IV antibiotics and fluids, and respiratory neb treatments. The patient states she feels much better today, but still kind of wheezy with some nonproductive cough. She states she is breathing much better and able to walk around a bit. OBJECTIVE: VITAL SIGNS: Today reveal blood pressure this morning 158/76, pulse 76 to 90, respirations 18 to 20, O2 saturations 93% on 2.5 and then weaned down to 2 L, T-max 98.3. GENERAL: This is a well-developed, well-nourished, pleasant, slightly obese white female, in no apparent distress at this time. HEENT: Reveals normocephalic and nontraumatic cranium. Pupils are equal, round, and reactive. Extraocular movements are intact. Nose and throat are still dry. NECK: Supple without masses, nodes, or bruits. CHEST: Reveals much less rales, rhonchi, and wheezes, probably 75% better. HEART: Reveals a regular rate and rhythm without murmurs, gallops, or rubs. ABDOMEN: Soft and nontender without organomegaly. Normal bowel sounds are noted in all 4 quadrants. GENITOURINARY: Deferred. EXTREMITIES: Reveal no clubbing, cyanosis, or edema. LABORATORY DATA: Today revealed white count down from 14,200 to 11,300; hemoglobin 10.7, which is improved and hematocrit is 34.0, which is improved; platelet count is 355,000. Sodium is 140; potassium 3.9, which is improved from 3.1; chloride is 96; carbon dioxide 32; BUN is 17; creatinine 0.79; sugars elevated at 167. She is a diabetic and we will do Accu-Cheks on her. ASSESSMENT: 1. Acute exacerbation of chronic obstructive pulmonary disease. 2. Possible pneumonia, present on antibiotics. 3. Hypertension. 4. Diabetes type 2. 5. Hyperlipidemia. 6. Intermittent asthma. 7. Leukocytosis. PLAN: 1. The patient will continue on nebulizer treatments. 2. We will continue IV Rocephin and Zithromax at this time. 3. Continue IV steroids. 4. Potassium is much improved. 5. We will re-evaluate the patient tomorrow. 6. We will get the patient out of bed and hopefully get some PT and OT. 7. The patient will be seen by Dr. Oswald or Dr. Billy tomorrow. If she is much improved, she may be discharged. Otherwise, she may be discharged the following day or as she improves. Job ID: [id number]
[2020-02-04] MEDS: methylPREDNISolone Sod Succ 40 MG VIAL IVP SCH ×4 (00:33→12:11)
[2020-02-04] MEDS: Arformoterol 15 MCG/2 ML NEB NEB SCH ×2 (05:36→18:31)
[2020-02-04] MEDS: Hydrochlorothiazide 25 MG TAB PO SCH (08:51)
[2020-02-04] MEDS: Potassium Chloride 10 MEQ TAB PO SCH (08:51)
[2020-02-04] MEDS: FLUoxetine HCl 20 MG CAP PO SCH (08:51)
[2020-02-04] MEDS: Carvedilol 25 MG TAB PO SCH ×2 (08:51→18:30)
[2020-02-04] MEDS: Lisinopril 20 MG TAB PO SCH (08:52)
[2020-02-04] MEDS ORDERED: Amlodipine 5 MG TAB PO SCH ×2 (11:00→21:00)
[2020-02-04] MEDS: Sodium Chloride 0.9% 20 ML ONE ×2 (12:02→14:24)
[2020-02-04 12:36] VITALS: TEMP 98
[2020-02-04] MEDS ORDERED: hydrALAZINE 25 MG TAB PO SCH (13:00)
[2020-02-04] MEDS: Azithromycin 500 MG in Sodium Chloride 0.9% 250 ML 250 ML IVPB SCH (14:23)
[2020-02-04] MEDS: cefTRIAXone\\ROCEPHIN 1 GM in Sodium Chloride 0.9% 100 ML IVPB SCH (15:59)
[2020-02-04] MEDS: metFORMIN 500 MG TAB PO SCH (18:30)
[2020-02-04] MEDS: Atorvastatin Calcium 20 MG TAB PO SCH (18:30)
[2020-02-04 18:32] VITALS: BP 139/63
[2020-02-05] MEDS ORDERED: predniSONE 20 MG TAB PO SCH (08:00)
--- NOTE | 2020-02-07 22:50 | PQF ---
Sarah Garcia C. HENRY MD [id number] CLINICAL DOCUMENTATION CLARIFICATION FORM: POST DISCHARGE Addendum to original discharge summary date: ____ Late entry note date: __ DATE:02/07/2020 ATTN:GERSON COLINDRES MD Please exercise your independent, professional judgment in responding to the clarification form. Clinical indicators are provided on the bottom of this form for your review Please check appropriate box(s) to clarify if the following diagnosis has been ruled in or ruled out: Pneumonia [ ] Ruled in diagnosis [ ] Continue to treat [ ] Resolved [ ] Ruled out diagnosis [ ] Cannot rule out diagnosis [ ] Other diagnosis [ ] Unable to determine For continuity of documentation, please document condition throughout progress notes and discharge summary. Thank You. CLINICAL INDICATORS - SIGNS / SYMPTOMS / LABS Increased cough-Documented in H&P on 02/01 by Gerson Colindres MD She had rectal temperature of 100.4-Documented in H&P on 02/01 by Gerson Colindres MD She has previously been hospitalized with COPD exacerbation and pneumonia - Documented in H&P on 02/01 by Gerson Colindres MD Acute exacerbation of chronic obstructive pulmonary disease-Documented in H&P on 02/01 by Gerson Colindres MD possible pneumonia-Documented in H&P on 02/01 by Gerson Colindres MD Leukocytosis-Documented in H&P on 02/01 by Gerson Colindres MD No confluent pneumonia -Documented in Chest x yesy RISK FACTORS She has previously been hospitalized with COPD exacerbation and pneumonia - Documented in H&P on 02/01 by Gerson Colindres MD TREATMENTS We will continue IV steroids and IV Rocephin along with IV zithromax-Documented in H&P on 02/01 by Gerson Colindres MD Repeat an X ray tomorrow morning-Documented in H&P on 02/01 by Gerson Colindres MD The patient will get some extensive therapy -Documented in H&P on 02/01 by Gerson Colindres MD [employer] (This form is maintained as a part of the permanent medical record) 2014 [employer]. All Rights Reserved [email or web address]
--- NOTE | 2020-02-07 23:05 | PQF ---
Sarah Garcia C. HENRY MD [id number] CLINICAL DOCUMENTATION CLARIFICATION FORM: POST DISCHARGE Addendum to original discharge summary date: ____ Late entry note date: __ DATE:02/07/2020 ATTN: Rod COLINDRES MD Please exercise your independent, professional judgment in responding to the clarification form. Clinical indicators are provided on the bottom of this form for your review Please check appropriate box(s): [ ] Acute Respiratory Failure: [ ] with Hypoxia[ ] with Hypercapnia [ ] Acute On Chronic Respiratory Failure: [ ] with Hypoxia [ ] with Hypercapnia [ ] Acute Respiratory Failure due to: (etiology) [ ] ARDS (Acute Respiratory Distress Syndrome) [ ] Chronic Respiratory Failure only [ ] with Hypoxia [ ] with Hypercapnia [ ] Hypoxia [ ] Other diagnosis [ ] Unable to determine In addition, please specify: Present on Admission (POA): [ ] Yes [ ] No [ ] Unable to determine For continuity of documentation, please document condition throughout progress notes and discharge summary. Thank You. CLINICAL INDICATORS - SIGNS / SYMPTOMS / LABS Resp-26, Documented in ED on 02/01 by Jhonatan White for over a week. she could not walk really over 5 feet without getting short of breath.Increased cough-Documented in H&P on 02/01 by Gerson Colindres MD Acute exacerbation of chronic obstructive pulmonary disease-Documented in H&P on 02/01 by Gerson Colindres MD Patient had significant wheezing along with rhonchi and congestion until she had multiple breathing treatments including IV steroids and IV antibiotics-- Documented in H&P on 02/01 by Gerson Colindres MD RISK FACTORS Acute exacerbation of chronic obstructive pulmonary disease-Documented in H&P on 02/01 by Gerson Colindres MD TREATMENTS: Oxygen flow rate 2L via nasal cannula -Documented in clinical panels We will continue IV steroids and IV Rocephin along with IV Zithromax-Documented in H&P on 02/01 by Gerson Colindres MD 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 All Rights Reserved [email or web address]
== END 2020-02-04 19:21 | disposition home or self-care (01) | DRG 190 ==
LOC: NAV ERS 14:06 → OBSVTOIN 17:14 → NAV ACUTE 17:14
PROVIDERS: ADMIT Family Medicine; ATTEND Family Medicine
DX: J44.1 Chronic obstructive pulmonary disease with (acute) exacerbation (principal); J18.9 Pneumonia, unspecified organism; J44.0 Chronic obstructive pulmonary disease with (acute) lower respiratory infection; K21.9 Gastro-esophageal reflux disease without esophagitis; E78.5 Hyperlipidemia, unspecified; G47.00 Insomnia, unspecified; J45.20 Mild intermittent asthma, uncomplicated; Z82.49 Family history of ischemic heart disease and other diseases of the circulatory system; Z87.891 Personal history of nicotine dependence; E11.9 Type 2 diabetes mellitus without complications; F41.9 Anxiety disorder, unspecified; I11.0 Hypertensive heart disease with heart failure; I50.9 Heart failure, unspecified; D64.9 Anemia, unspecified; Z99.81 Dependence on supplemental oxygen; E87.6 Hypokalemia
CPT/HCPCS: 36415; 36416; 71046; 80053; 81003; 83605; 83690; 83880; 84484; 85025; 87040; 87804; 93005; 94760; 96361; 96365; 96375; J0456; J0696; J2920; J2930; J3490; J7050; J7611; J7620

== ENCOUNTER 2020-05-18 10:09 | Outpatient (CLI) | payer MEDICARE ==
--- NOTE | 2020-05-18 10:57 | RAD ---
Exam: 3 views sacrum and coccyx/sacral iliac joints History: Right-sided sciatica FINDINGS: Visualized bony pelvis is intact. Sacral joints are patent and symmetric. No evidence of fr acture. There are degenerative changes in the distal lumbar spine and lumbosacral junction IMPRESSION: Degenerative changes of the distal lumbar spine.
--- NOTE | 2020-05-18 11:07 | RAD ---
Exam: 5 views lumbar spine HISTORY: Right-sided sciatica FINDINGS: AP, upright standing neutral, lateral flexion, lateral extension and spot ileocecal junctio n demonstrate 5 lumbar type vertebra. Lumbar spine vertebral body height is maintained. No fracture. Mild loss of disc space height at L3-L4, moderate loss of disc space at L4-L5 and L5-S1 In the neutral position, there is slight straightening of lumbar lordosis. Upon flexion and extension , no abnormal motion. Note, the second flexion image is most likely on extension images given patient alignment. In all likelihood, the x-ray tech did not place a marker IMPRESSION: Degenerative changes of the lumbar spine. No significant spondylolisthesis or spondylolys is.
== END 2020-05-18 10:10 | disposition home or self-care (01) ==
LOC: NAV RAD 10:09
PROVIDERS: ATTEND Nurse Practitioner Adult Health
DX: M54.31 Sciatica, right side (principal); M47.816 Spondylosis without myelopathy or radiculopathy, lumbar region
CPT/HCPCS: 72100; 72202

== ENCOUNTER 2020-12-13 21:52 | Inpatient (IN) | payer MEDICARE ==
[2020-12-13] MEDS ORDERED: Acetaminophen 325 MG TAB PO PRN (22:56)
[2020-12-13] MEDS ORDERED: Dextrose 50% Abboject 50 ML SYRINGE IVP PRN (23:00)
[2020-12-13] MEDS ORDERED: HumaLOG 300 UNITS/3 ML VIAL SC PRN ×2 (23:00)
[2020-12-13] MEDS ORDERED: Dextrose 5% in Water 1,000 ML IV PRN (23:00)
[2020-12-13] MEDS: guaiFENesin ER 600 MG TAB PO SCH (23:30)
[2020-12-14] MEDS: Mometasone/Formoterol 200/5 60 PUFF INH SCH ×2 (06:14→18:07)
[2020-12-14 07:19] LABS: Anion Gap 11 mmol/L (10-20); BUN (Urea Nitrogen) 26 mg/dL (9.8-20.1); Calc. Creatinine Clearance 107 mL/min (70-130); Calcium 7.9 mg/dL (7.8-10.44); Carbon Dioxide 33 mmol/L (23-31); Chloride 98 mmol/L (98-107); Glucose 93 mg/dL (83-110); Sodium 138 mmol/L (136-145)
[2020-12-14 07:26] LABS: Hemoglobin 8.7 g/dL (12.0-16.0); Mean Corpuscular HGB CONC 32.8 g/dL (32.0-36.0); Mean Corpuscular Hemoglobin 30.6 pg (27.0-31.0); Mean Corpuscular Volume 93.4 fL (78.0-98.0); Mean Platelet Volume 7.5 fL (7.4-10.4); Platelet Count 196 thou/uL (130-400); RBC Distribution Width 15.7 % (11.5-14.5); Red Blood Cell (RBC) Count 2.85 mill/uL (4.20-5.40); White Blood Cell (WBC) Count 12.9 thou/uL (4.8-10.8)
[2020-12-14 07:27] LABS: Anisocytosis SLIGHT = 6-15 cells (100X) (0-5/hpf); Band 12 % (5-11); Eosinophils 1 % (0-10); Hypochromia SLIGHT = 6-15 cells (100X) (0-5/hpf); Lymphocytes 10 % (21-51); MDiff Complete? YES; Monocytes 5 % (0-10); Neutrophil 72 % (42-75); Platelet Morphology Comment Appears Adequate
[2020-12-14] MEDS: Dexamethasone 1 MG TAB PO SCH (08:27)
[2020-12-14] MEDS: Potassium Chloride 10 MEQ TAB PO SCH (08:27)
[2020-12-14] MEDS: Hydrochlorothiazide 25 MG TAB PO SCH (08:27)
[2020-12-14] MEDS: Polyethylene Glycol 3350 17 GM Packet PO SCH (08:27)
[2020-12-14] MEDS: Carvedilol 6.25 MG TAB PO SCH ×2 (08:30→20:56)
[2020-12-14] MEDS: Lisinopril 20 MG TAB PO SCH (08:30)
[2020-12-14] MEDS: FLUoxetine HCl 20 MG CAP PO SCH (08:30)
[2020-12-14] MEDS: guaiFENesin ER 600 MG TAB PO SCH (13:26)
[2020-12-14] MEDS ORDERED: HumaLOG 300 UNITS/3 ML VIAL SC PRN ×2 (13:33)
[2020-12-14] MEDS ORDERED: Acetaminophen 325 MG TAB PO PRN (13:33)
[2020-12-14] MEDS ORDERED: Loperamide HCl 2 MG CAP PO PRN (13:35)
[2020-12-14] MEDS ORDERED: Ondansetron ODT 4 MG TAB SL PRN (13:35)
[2020-12-14] MEDS ORDERED: Senokot S 8.6-50 MG TAB PO PRN (13:35)
[2020-12-14] MEDS ORDERED: Bisacodyl 5 MG TAB PO PRN (13:35)
[2020-12-14] MEDS ORDERED: cloNIDine 0.1 MG TAB PO PRN (13:40)
[2020-12-14] MEDS ORDERED: Sodium Chloride 0.65% Nasal 44 ML BOT EA NARE PRN (13:40)
[2020-12-14] MEDS ORDERED: Artificial Tear Sol 15 ML BOT EA EYE PRN (13:40)
[2020-12-14] MEDS ORDERED: Mometasone/Formoterol 200/5 60 PUFF INH SCH (18:30)
--- NOTE | 2020-12-14 20:43 | HP ---
HISTORY AND PHYSICAL: This patient is a 75-year-old female who is originally admitted to [facility] for shortness of breath. She was admitted to the Family Medicine Residency service. The patient originally admitted for worsening shortness of breath. The patient was found to be COVID positive. She was started on 2g of magnesium and given Rocephin and azithromycin as well as Decadron. The patient was given convalescent plasma and remdesivir. The patient was on 4 L nasal cannula on admission. The patient was doing well until, the patient was admitted to the ICU for hypoxia requiring BiPAP . At that time Pulmonology was consulted and a chest x-ray was ordered. On the chest x-ray, the patient was found to have a new complete opacification of the left lung, which was determined to be a mucus plug by Pulmonology. The patient was started on Mucomyst and albuterol. No bronchoscopy was performed per Pulmonology. On 12/03, the patient became lethargic and was found to have melenic stools. Stat H and H were ordered. The patient was found to be very anemic. 2 units of packed red blood cells were ordered and given to the patient. GI was consulted and the plan at that point was to continue IV Protonix drip and to stop her Lovenox. At that point GI wanted to avoid endoscopy due to risk of anesthesia and her current respiratory status due to her COVID pneumonia. Bleeding had stopped when she had stopped her Lovenox and her H and H was stable for the next few days. However, on 12/10, the patient became hypotensive again with H and H of 6.8. The patient was found to have melenic stools again and Dr. San, the GI on-call was consulted. The next morning the patient was taken for EGD, which showed a 5-cm hiatal hernia with erosive gastritis within the hiatal hernia. No active bleeding. Duodenitis with diffuse friability and diffuse small duodenal AV malformations which were nonbleeding. He recommended to continue proton pump inhibitor and holding all anticoagulation going forward. He recommended to continue monitoring H and H, but did not have any plan for colonoscopy due to high risk for the patient. He did recommend that if the patient passed another melenic stool that we will need to get a tagged red blood cell to attempt localization. The patient's H and H remained stable throughout the next few days and anticoagulation was held. GI recommended for PPI to be continued. At that time patient was determined to be stable for transfer, but with the need for continued PT and OT services which are provided here at [facility]. The patient was transferred here in stable condition and will be evaluated by PT and OT. On arrival here, patient is stable on 2 L nasal cannula, doing well, lying in bed. The patient is complaining of some cramping in her bilateral lower extremities. She complains of weakness, lower greater than upper extremities, but no true shortness of breath at this time. She denies any palpitations, nausea, vomiting, diarrhea. She does state that her taste is returning to her and she does enjoy the food here at [place]. She said it taste very good. At this time, patient is stable and denies any melenic stools. PAST MEDICAL HISTORY: 1. COPD. 2. Status post COVID pneumonia. 3. Hypertension. 4. DM 2. 5. Hyperlipidemia. 6. Gastroesophageal reflux disease. PAST SURGICAL HISTORY: 1. Cataract surgery. 2. . FAMILY HISTORY: Noncontributory. SOCIAL HISTORY: She is a former tobacco user. She has quit over 10 years ago. Drinks socially and denies any illicit drug use. REVIEW OF SYSTEMS: Denies any fever, chills, cough, congestion, nausea, vomiting, diarrhea, palpitations, chest pain. She does report weakness with lower extremity greater than upper extremity. Denies any rashes. Denies any syncope. HOME MEDICATIONS: 1. Metformin 5 mg p.o. at bedtime. 2. Mucinex 1200 mg p.o. q.12 hours p.r.n. congestion. 3. Potassium chloride 10 mEq p.o. daily. 4. MiraLAX 17 g p.o. daily. 5. Protonix 40 mg p.o. daily. 6. Dulera 2 puffs b.i.d. 7. Lisinopril/HCTZ 20/25 one tablet p.o. daily. 8. Fluoxetine 20 mg p.o. daily. 9. Coreg 12.5 mg p.o. daily. 10. Atorvastatin 20 mg p.o. at bedtime. 11. Norvasc 5 mg p.o. daily. OBJECTIVE: VITAL SIGNS: Temperature 97.7, pulse 64, respirations 20, O2 saturations 99% on 3 L on nasal cannula, blood pressure 144/67 to 150/58. PHYSICAL EXAMINATION: GENERAL: Well-appearing 75-year-old female lying in bed, in no acute distress. Nasal cannula in place. HEENT: EOMI, PERRLA. Normocephalic, atraumatic. No ulcers seen in the buccal mucosa. Posterior pharynx unremarkable with no lesions. RESPIRATORY: Distant lung sounds. No wheezes or rhonchi. HEART: Regular rate and rhythm. No murmurs, gallops, or rubs. NECK: No JVD. ABDOMEN: Soft, nontender to palpation. Bowel sounds are positive in all 4 quadrants. EXTREMITIES: Networking Technician strength equal bilaterally. Biceps flexion decreased but intact. Hip flexion decreased bilaterally. Calves nontender. NEUROLOGIC: Weakness, lower extremities greater than upper extremities. Alert and oriented x4. PSYCHIATRIC: Cooperative, pleasant. LABORATORY DATA: On admission, WBC 12.9, hemoglobin 8.7, hematocrit 26.6, platelets 196. Sodium 138, potassium 4.8, chloride 98, CO2 33, BUN 26. Creatinine 0.60, GFR greater than 90, glucose 93, POC glucose 110, 7.9 of calcium. ASSESSMENT: 1. Status post coronavirus infection with subsequent weakness requiring Physical Therapy and Occupational Therapy services. 2. Gastrointestinal bleed, possibly due to hiatal hernia with erosive gastritis versus arteriovenous malformation. 3. Hypertension. 4. Hyperlipidemia. 5. Depression, anxiety. 6. Weakness. 7. Chronic obstructive pulmonary disease, requiring inhalers. 8. Obesity. PLAN: 1. Continue to monitor H and H daily for any decreases. Continue to monitor for melenic stools as well. If any of these were to occur, we will need to contact GI for further recommendations. 2. Continue to monitor vitals. 3. Continue Dulera inhaler scheduled and Duonebs p.r.n. We will need to continue with airborne precautions due to previous COVID infection and the use of nebulized medicines. 4. Continue home antihypertensives. Monitor BP. 5. Continue atorvastatin. 6. Continue SSRI. 7. Fall precautions. 8. Consult PT/OT. 9. Diabetic diet. 10. Insulin sliding scale with q.a.c. and at bedtime coverage. 11. Fall precautions. DISCHARGE PLANNING: The patient lives on her own at her house. However, it is a one story house with no steps. We will continue to monitor her progress and decide on discharge planning at that time. Job ID: [id number] FREDDY
[2020-12-14] MEDS: Amlodipine 5 MG TAB PO SCH (20:57)
[2020-12-14] MEDS: metFORMIN 500 MG TAB PO SCH (20:57)
[2020-12-14] MEDS: Atorvastatin Calcium 20 MG TAB PO SCH (20:58)
[2020-12-14] MEDS ORDERED: Atorvastatin Calcium 20 MG TAB PO SCH (21:00)
[2020-12-14] MEDS ORDERED: Carvedilol 6.25 MG TAB PO SCH (21:00)
[2020-12-14] MEDS ORDERED: metFORMIN 500 MG TAB PO SCH (21:00)
[2020-12-14] MEDS ORDERED: Amlodipine 5 MG TAB PO SCH (21:00)
[2020-12-15] MEDS: Mometasone/Formoterol 200/5 60 PUFF INH SCH ×2 (06:08→18:16)
[2020-12-15] MEDS ORDERED: FLUoxetine HCl 20 MG CAP PO SCH (09:00)
[2020-12-15] MEDS ORDERED: Dexamethasone 1 MG TAB PO SCH (09:00)
[2020-12-15] MEDS ORDERED: Polyethylene Glycol 3350 17 GM Packet PO SCH (09:00)
[2020-12-15] MEDS: Polyethylene Glycol 3350 17 GM Packet PO SCH (09:01)
[2020-12-15] MEDS: Dexamethasone 1 MG TAB PO SCH (09:01)
[2020-12-15] MEDS: Carvedilol 6.25 MG TAB PO SCH ×2 (09:02→20:55)
[2020-12-15] MEDS: Lisinopril 20 MG TAB PO SCH (09:02)
[2020-12-15] MEDS: Hydrochlorothiazide 25 MG TAB PO SCH (09:02)
[2020-12-15] MEDS: FLUoxetine HCl 20 MG CAP PO SCH (09:03)
[2020-12-15] MEDS: Potassium Chloride 10 MEQ TAB PO SCH (09:03)
[2020-12-15] MEDS: metFORMIN 500 MG TAB PO SCH (20:55)
[2020-12-15] MEDS: Atorvastatin Calcium 20 MG TAB PO SCH (20:56)
[2020-12-15] MEDS: Amlodipine 5 MG TAB PO SCH (20:56)
[2020-12-16] MEDS: Mometasone/Formoterol 200/5 60 PUFF INH SCH ×2 (05:25→19:09)
[2020-12-16 05:27] LABS: #Eosinphils 0.1 thou/uL (0.0-0.7); #Lymphocytes 1.1 thou/uL (1.20-3.40); #Monocytes 0.6 thou/uL (0.11-0.59); %Basophils 0.2 % (0.0-1.0); %Lymphocytes 7.9 % (21.0-51.0); %Monocytes 4.5 % (0.0-10.0); %Neutrophils 86.4 % (42.0-75.0); Hemoglobin 9.3 g/dL (12.0-16.0); Mean Corpuscular HGB CONC 32.2 g/dL (32.0-36.0); Mean Corpuscular Hemoglobin 30.7 pg (27.0-31.0); Mean Corpuscular Volume 95.5 fL (78.0-98.0); Mean Platelet Volume 7.2 fL (7.4-10.4); Platelet Count 186 thou/uL (130-400); RBC Distribution Width 16.2 % (11.5-14.5); Red Blood Cell (RBC) Count 3.04 mill/uL (4.20-5.40); White Blood Cell (WBC) Count 13.9 thou/uL (4.8-10.8)
[2020-12-16 05:41] LABS: Anion Gap 12 mmol/L (10-20); BUN (Urea Nitrogen) 19 mg/dL (9.8-20.1); Calc. Creatinine Clearance 96 mL/min (70-130); Calcium 8.1 mg/dL (7.8-10.44); Carbon Dioxide 32 mmol/L (23-31); Chloride 97 mmol/L (98-107); Glucose 91 mg/dL (83-110); Potassium 3.7 mmol/L (3.5-5.1); Sodium 137 mmol/L (136-145)
[2020-12-16] MEDS: Hydrochlorothiazide 25 MG TAB PO SCH (08:45)
[2020-12-16] MEDS: Polyethylene Glycol 3350 17 GM Packet PO SCH (08:45)
[2020-12-16] MEDS: Dexamethasone 1 MG TAB PO SCH (08:46)
[2020-12-16] MEDS: Carvedilol 6.25 MG TAB PO SCH ×2 (08:46→21:03)
[2020-12-16] MEDS: Lisinopril 20 MG TAB PO SCH (08:46)
[2020-12-16] MEDS: FLUoxetine HCl 20 MG CAP PO SCH (08:46)
[2020-12-16] MEDS: Potassium Chloride 10 MEQ TAB PO SCH (08:46)
--- NOTE | 2020-12-16 13:44 | PRG ---
DATE OF SERVICE: 12/16/2020 SUBJECTIVE: The patient is a 75-year-old female, sent here for deconditioning requiring PT and OT services. The patient has been doing well. No complaints per the patient and nursing staff. Participating well in therapy. Sugars have been well controlled. REVIEW OF SYSTEMS: Denies any fever, chills, nausea, vomiting, diarrhea, or constipation. Reports continued generalized weakness, lower extremities greater than upper extremities and occasional cough. OBJECTIVE: VITAL SIGNS: Temperature 96.9 degrees Fahrenheit, pulse 71, blood pressure ranged 119/58 to 144/65, respirations 18, O2 sats 96% on 2 L nasal cannula. GENERAL: Well appearing, well-developed 75-year-old female, lying in bed, in no acute distress. CARDIOVASCULAR: Regular rate and rhythm. No murmurs, gallops, or rubs. RESPIRATORY: Clear to auscultation bilaterally. No wheezes or rhonchi. ABDOMEN: Soft, nontender to palpation. Bowel sounds positive in all four quadrants. EXTREMITIES: Generalized weakness, lower extremities greater than upper extremities. LABORATORY VALUES: Today, white cells 13.9, hemoglobin 9.3, hematocrit 29.0, platelets 186. Sodium 137, potassium 3.7, chloride 97, CO2 of 32, BUN 19, creatinine 0.67, GFR of 86, glucose range 83 to 125. ASSESSMENT: 1. Weakness requiring PT and OT services status post COVID pneumonia. 2. Gastrointestinal bleed possibly due to hiatal hernia with erosive gastritis versus arteriovenous malformation, stable with hemoglobin and hematocrit increasing. 3. Hypertension. 4. Hyperlipidemia. 5. Depression. 6. Anxiety. 7. Weakness. 8. Chronic obstructive pulmonary disease requiring inhalers. 9. Obesity. PLAN: 1. Continue PT, OT services. Continue diabetic diet with sliding scale coverage. 2. Continue monitor vitals. 3. Continue Dulera inhaler scheduled, Kymberly p.r.n. 4. Monitor BP, well controlled today. 5. Continue SSRI. 6. Fall precautions. 7. Continue discharge planning. We will follow up with PT, OT meeting on Saturday for further delineation of discharge plans. Job ID: [id number]
[2020-12-16] MEDS: Atorvastatin Calcium 20 MG TAB PO SCH (21:03)
[2020-12-16] MEDS: metFORMIN 500 MG TAB PO SCH (21:03)
[2020-12-16] MEDS: Amlodipine 5 MG TAB PO SCH (21:04)
[2020-12-17] MEDS: Mometasone/Formoterol 200/5 60 PUFF INH SCH ×2 (05:49→18:01)
[2020-12-17] MEDS: Lisinopril 20 MG TAB PO SCH (08:36)
[2020-12-17] MEDS: FLUoxetine HCl 20 MG CAP PO SCH (08:38)
[2020-12-17] MEDS: Polyethylene Glycol 3350 17 GM Packet PO SCH (08:39)
[2020-12-17] MEDS: Hydrochlorothiazide 25 MG TAB PO SCH (08:39)
[2020-12-17] MEDS: Carvedilol 6.25 MG TAB PO SCH ×2 (08:40→21:04)
[2020-12-17] MEDS: Potassium Chloride 10 MEQ TAB PO SCH (08:41)
[2020-12-17] MEDS: Dexamethasone 1 MG TAB PO SCH (08:44)
--- NOTE | 2020-12-17 08:45 | PRG ---
DATE OF SERVICE: 12/17/2020 SUBJECTIVE: The patient is doing well with her only complaint is still being constipated. We had given her Dulcolax this morning to try and produce a bowel movement. She does have a history of melenic bowel movements, and we will need to monitor for this. However, H and H have been stable. Participating well in therapy. She does have an extra complaint of insomnia and would like to try melatonin at night. REVIEW OF SYSTEMS: Reports weakness that is improving. Reports insomnia and constipation. Denies any fever, chills, cough, congestion, nausea, vomiting, chest pain, palpitations. OBJECTIVE: VITAL SIGNS: Temperature 98, pulse 74, respirations 20 to 22 on 2 L nasal cannula. Blood pressure 132/77. GENERAL: Well-appearing, well-developed 75-year-old female, lying in bed, in no acute distress. CARDIOVASCULAR: Regular rate and rhythm. No murmurs, gallops, or rubs. RESPIRATIONS: Clear to auscultation bilaterally. No wheezes or rhonchi. ABDOMEN: Soft, nontender to palpation. Bowel sounds positive in all 4 quadrants. EXTREMITIES: Still with weakness, lower extremities greater than upper extremities. ASSESSMENTS: 1. Status post COVID pneumonia with weakness, requiring PT and OT services. 2. Gastrointestinal bleed, possibly due to hiatal hernia with erosive gastritis versus arteriovenous malformation, stable hemoglobin and hematocrit. 3. Hypertension. 4. Hyperlipidemia. 5. Depression. 6. Anxiety. 7. Weakness. 8. Chronic obstructive pulmonary disease. 9. Obesity. PLAN: 1. Dulcolax this morning to encourage a bowel movement. 2. Melatonin p.r.n. for insomnia. 3. Continue monitor vitals. 4. Continue Dulera inhaler scheduled with DuoNeb p.r.n. 5. Monitor BP, well controlled today. 6. Continue SSRI. 7. Fall precautions. 8. Diabetic diet with sliding scale coverage. CBGs have been well controlled during this hospital stay. Job ID: [id number]
[2020-12-17] MEDS: Atorvastatin Calcium 20 MG TAB PO SCH (21:03)
[2020-12-17] MEDS: Amlodipine 5 MG TAB PO SCH (21:04)
[2020-12-17] MEDS: metFORMIN 500 MG TAB PO SCH (21:09)
[2020-12-17] MEDS: Melatonin 3 MG TAB PO PRN (21:09)
[2020-12-18] MEDS: Mometasone/Formoterol 200/5 60 PUFF INH SCH ×2 (06:33→17:48)
[2020-12-18] MEDS: Hydrochlorothiazide 25 MG TAB PO SCH (08:44)
[2020-12-18] MEDS: Lisinopril 20 MG TAB PO SCH (08:44)
[2020-12-18] MEDS: Polyethylene Glycol 3350 17 GM Packet PO SCH (08:44)
[2020-12-18] MEDS: Carvedilol 6.25 MG TAB PO SCH ×2 (08:45→21:08)
[2020-12-18] MEDS: FLUoxetine HCl 20 MG CAP PO SCH (08:46)
[2020-12-18] MEDS: Dexamethasone 1 MG TAB PO SCH (08:46)
[2020-12-18] MEDS: Potassium Chloride 10 MEQ TAB PO SCH (08:47)
[2020-12-18 09:09] LABS: #Basophils 0.1 thou/uL (0.0-0.2); #Eosinphils 0.2 thou/uL (0.0-0.7); #Lymphocytes 0.9 thou/uL (1.20-3.40); #Monocytes 0.7 thou/uL (0.11-0.59); #Neutrophils 11.6 thou/uL (1.40-6.50); %Basophils 0.5 % (0.0-1.0); %Eosinophils 1.7 % (0.0-10.0); %Lymphocytes 6.9 % (21.0-51.0); %Monocytes 5.2 % (0.0-10.0); %Neutrophils 85.7 % (42.0-75.0); Mean Corpuscular HGB CONC 32.2 g/dL (32.0-36.0); Mean Corpuscular Hemoglobin 30.9 pg (27.0-31.0); Mean Corpuscular Volume 95.9 fL (78.0-98.0); Mean Platelet Volume 7.2 fL (7.4-10.4); Platelet Count 205 thou/uL (130-400); RBC Distribution Width 16.5 % (11.5-14.5); Red Blood Cell (RBC) Count 3.22 mill/uL (4.20-5.40); White Blood Cell (WBC) Count 13.5 thou/uL (4.8-10.8)
[2020-12-18 09:39] LABS: Anion Gap 15 mmol/L (10-20); BUN (Urea Nitrogen) 19 mg/dL (9.8-20.1); Calc. Creatinine Clearance 98 mL/min (70-130); Calcium 8.2 mg/dL (7.8-10.44); Carbon Dioxide 29 mmol/L (23-31); Chloride 99 mmol/L (98-107); Glucose 116 mg/dL (83-110); Potassium 3.5 mmol/L (3.5-5.1); Sodium 139 mmol/L (136-145)
[2020-12-18] MEDS ORDERED: Sodium Chloride 0.9% 10 ML ONE (10:38)
[2020-12-18] MEDS: Amlodipine 5 MG TAB PO SCH (21:08)
[2020-12-18] MEDS: Atorvastatin Calcium 20 MG TAB PO SCH (21:08)
[2020-12-18] MEDS: metFORMIN 500 MG TAB PO SCH (21:09)
[2020-12-19] MEDS: Mometasone/Formoterol 200/5 60 PUFF INH SCH ×2 (05:52→18:16)
[2020-12-19 05:53] LABS: #Basophils 0.1 thou/uL (0.0-0.2); #Eosinphils 0.2 thou/uL (0.0-0.7); #Lymphocytes 1.1 thou/uL (1.20-3.40); #Monocytes 0.6 thou/uL (0.11-0.59); #Neutrophils 8.7 thou/uL (1.40-6.50); %Basophils 0.6 % (0.0-1.0); %Lymphocytes 10.1 % (21.0-51.0); %Monocytes 5.6 % (0.0-10.0); %Neutrophils 81.7 % (42.0-75.0); Hemoglobin 9.3 g/dL (12.0-16.0); Mean Corpuscular HGB CONC 32.3 g/dL (32.0-36.0); Mean Corpuscular Hemoglobin 30.7 pg (27.0-31.0); Mean Platelet Volume 7.2 fL (7.4-10.4); Platelet Count 206 thou/uL (130-400); RBC Distribution Width 15.7 % (11.5-14.5); Red Blood Cell (RBC) Count 3.02 mill/uL (4.20-5.40); White Blood Cell (WBC) Count 10.7 thou/uL (4.8-10.8)
[2020-12-19] MEDS ORDERED: Sodium Chloride 0.9% 10 ML ONE (08:10)
[2020-12-19] MEDS: Polyethylene Glycol 3350 17 GM Packet PO SCH (09:04)
[2020-12-19] MEDS: Carvedilol 6.25 MG TAB PO SCH ×2 (09:04→20:49)
[2020-12-19] MEDS: FLUoxetine HCl 20 MG CAP PO SCH (09:04)
[2020-12-19] MEDS: Hydrochlorothiazide 25 MG TAB PO SCH (09:05)
[2020-12-19] MEDS: Potassium Chloride 10 MEQ TAB PO SCH (09:05)
[2020-12-19] MEDS: Lisinopril 20 MG TAB PO SCH (09:05)
[2020-12-19] MEDS: Amlodipine 5 MG TAB PO SCH (20:48)
[2020-12-19] MEDS: metFORMIN 500 MG TAB PO SCH (20:49)
[2020-12-19] MEDS: Atorvastatin Calcium 20 MG TAB PO SCH (20:49)
[2020-12-19] MEDS: Melatonin 3 MG TAB PO PRN (22:18)
[2020-12-20 05:50] LABS: #Basophils 0.1 thou/uL (0.0-0.2); #Eosinphils 0.2 thou/uL (0.0-0.7); #Lymphocytes 0.8 thou/uL (1.20-3.40); #Monocytes 0.6 thou/uL (0.11-0.59); #Neutrophils 7.2 thou/uL (1.40-6.50); %Basophils 1.3 % (0.0-1.0); %Eosinophils 2.3 % (0.0-10.0); %Lymphocytes 8.9 % (21.0-51.0); %Monocytes 6.7 % (0.0-10.0); %Neutrophils 80.8 % (42.0-75.0); Hemoglobin 10.5 g/dL (12.0-16.0); Mean Corpuscular HGB CONC 31.6 g/dL (32.0-36.0); Mean Corpuscular Hemoglobin 30.3 pg (27.0-31.0); Mean Corpuscular Volume 95.7 fL (78.0-98.0); Mean Platelet Volume 7.6 fL (7.4-10.4); Platelet Count 176 thou/uL (130-400); RBC Distribution Width 15.8 % (11.5-14.5); Red Blood Cell (RBC) Count 3.46 mill/uL (4.20-5.40); White Blood Cell (WBC) Count 8.9 thou/uL (4.8-10.8)
[2020-12-20] MEDS: Mometasone/Formoterol 200/5 60 PUFF INH SCH ×2 (06:21→17:49)
[2020-12-20] MEDS: Polyethylene Glycol 3350 17 GM Packet PO SCH (09:42)
[2020-12-20] MEDS: Hydrochlorothiazide 25 MG TAB PO SCH (09:43)
[2020-12-20] MEDS: Lisinopril 20 MG TAB PO SCH (09:43)
[2020-12-20] MEDS: FLUoxetine HCl 20 MG CAP PO SCH (09:43)
[2020-12-20] MEDS: Potassium Chloride 10 MEQ TAB PO SCH (09:43)
[2020-12-20] MEDS: Carvedilol 6.25 MG TAB PO SCH ×2 (09:43→21:07)
[2020-12-20] MEDS: metFORMIN 500 MG TAB PO SCH (21:07)
[2020-12-20] MEDS: Atorvastatin Calcium 20 MG TAB PO SCH (21:07)
[2020-12-20] MEDS: Amlodipine 5 MG TAB PO SCH (21:07)
[2020-12-20] MEDS: Melatonin 3 MG TAB PO PRN (23:03)
[2020-12-21] MEDS: Mometasone/Formoterol 200/5 60 PUFF INH SCH ×2 (05:31→17:45)
[2020-12-21] MEDS: Polyethylene Glycol 3350 17 GM Packet PO SCH ×2 (10:58→11:02)
[2020-12-21] MEDS: Potassium Chloride 10 MEQ TAB PO SCH (10:58)
[2020-12-21] MEDS: Lisinopril 20 MG TAB PO SCH (10:59)
[2020-12-21] MEDS: FLUoxetine HCl 20 MG CAP PO SCH (10:59)
[2020-12-21] MEDS: Hydrochlorothiazide 25 MG TAB PO SCH (11:00)
[2020-12-21] MEDS: Carvedilol 6.25 MG TAB PO SCH ×2 (11:00→20:54)
[2020-12-21] MEDS: guaiFENesin ER 600 MG TAB PO PRN (12:13)
--- NOTE | 2020-12-21 13:04 | PRG ---
DATE OF SERVICE: 12/19/2020 SUBJECTIVE: The patient is doing well overall. She is participating well in therapy and making progress. However, she is frustrated that she has not been faster progress. I discussed that she had a pretty significant course in [facility] and she will likely require an extended time for her to recover back to her previous efforts. OBJECTIVE: VITAL SIGNS: Temperature 97.3, pulse 75, respirations 20, saturating 94% to 100% on 2 L nasal cannula. Blood pressure 131/60 to 152/67. GENERAL: Well-appearing 75-year-old female, lying in bed, in no acute distress. HEENT: EOMI and PERRLA. RESPIRATIONS: Clear to auscultation bilaterally. Decreased breath sounds bilaterally with no wheezes or rhonchi. HEART: Regular rate and rhythm. No murmurs, gallops, or rubs. ABDOMEN: Soft, nontender to palpation. Bowel sounds positive all four quadrants. ASSESSMENT: 1. Status post coronavirus disease pneumonia with weakness, requiring PT and OT services. 2. Anemia possibly due to gastrointestinal bleed. 3. Gastrointestinal bleed, possibly due to hiatal hernia versus arteriovenous malformation, stable H and H. 4. Hypertension. 5. Hyperlipidemia. 6. Depression. 7. Anxiety. 8. Weakness. 9. Chronic obstructive pulmonary disease. 10. Obesity. PLAN: 1. Continue to monitor for bowel movement. 2. Melatonin p.r.n. for insomnia. 3. Continue to monitor vital signs. 4. Continue scheduled Dulera inhaler with DuoNeb p.r.n. Monitor blood pressure. Continue SSRI. 5. Fall precautions. 6. Diabetic diet with sliding scale coverage. Job ID: [id number]
--- NOTE | 2020-12-21 13:38 | PRG ---
DATE OF SERVICE: 12/21/2020 SUBJECTIVE: The patient is doing well. She reports that she has had a couple of bowel movements since the last time I saw her. These have been slightly dark. However, her H and H yesterday was stable at 10.5 and 33.1, actually increased from 9.3 and 28.7. The patient's vital signs have been stable as well. She will need an outpatient GI consult for this. REVIEW OF SYSTEMS: Denies any fever, chills, nausea, vomiting, diarrhea, chest pain, palpitations. She does report some shortness of breath still and is requiring nasal cannula. OBJECTIVE: VITAL SIGNS: Temperature 98.3, pulse 70, blood pressure ranging from 111/56 to 120/58, respirations 18, O2 sats 99% on 2 L nasal cannula. GENERAL: Well-appearing 75-year-old female, sitting up in her wheelchair at side of bed. HEENT: PERRLA. EOMI. RESPIRATION: Distant breath sounds. No wheezing or rhonchi. HEART: Regular rate and rhythm. No murmurs, gallops, or rubs. GI: Soft, nontender to palpation. Bowel sounds positive in all 4 quadrants. LABORATORY DATA: White cells 8.9, hemoglobin 10.5, hematocrit 33.1, platelets 176. CBGs have been ranging from 92 to 113. ASSESSMENT: 1. Status post COVID pneumonia with weakness requiring PT and OT services. 2. Anemia, which is improving. 3. GI bleed, possibly due to hiatal hernia with erosive gastritis versus AV malformation. 4. Hypertension. 5. Hyperlipidemia. 6. Depression. 7. Anxiety. 8. Weakness. 9. COPD. 10. Obesity. PLAN: 1. The patient's H and H have been stable. We will repeat her H and H in the morning to continue to monitor this. She has had dark bowel movements, but her vital signs are stable. She will need an outpatient GI consult for this. 2. Melatonin p.r.n. for insomnia. 3. We will continue to monitor vital signs and blood pressure. 4. Continue Dulera inhaler scheduled with DuoNeb p.r.n. 5. Continue SSRI. 6. Fall precautions. 7. Diabetic diet with sliding scale coverage. Job ID: [id number]
[2020-12-21] MEDS: metFORMIN 500 MG TAB PO SCH (20:54)
[2020-12-21] MEDS: Atorvastatin Calcium 20 MG TAB PO SCH (20:55)
[2020-12-21] MEDS: Melatonin 3 MG TAB PO PRN (20:56)
[2020-12-21] MEDS: Amlodipine 5 MG TAB PO SCH (20:58)
[2020-12-22 05:30] LABS: #Basophils 0.1 thou/uL (0.0-0.2); #Eosinphils 0.1 thou/uL (0.0-0.7); #Monocytes 0.5 thou/uL (0.11-0.59); #Neutrophils 6.1 thou/uL (1.40-6.50); %Basophils 0.9 % (0.0-1.0); %Eosinophils 1.7 % (0.0-10.0); %Lymphocytes 13.2 % (21.0-51.0); %Monocytes 6.5 % (0.0-10.0); %Neutrophils 77.6 % (42.0-75.0); Hemoglobin 8.4 g/dL (12.0-16.0); Mean Corpuscular HGB CONC 32.3 g/dL (32.0-36.0); Mean Corpuscular Hemoglobin 30.6 pg (27.0-31.0); Mean Corpuscular Volume 94.7 fL (78.0-98.0); Mean Platelet Volume 7.1 fL (7.4-10.4); Platelet Count 188 thou/uL (130-400); RBC Distribution Width 15.5 % (11.5-14.5); Red Blood Cell (RBC) Count 2.75 mill/uL (4.20-5.40); White Blood Cell (WBC) Count 7.9 thou/uL (4.8-10.8)
[2020-12-22 05:38] LABS: Anion Gap 12 mmol/L (10-20); BUN (Urea Nitrogen) 27 mg/dL (9.8-20.1); Calc. Creatinine Clearance 91 mL/min (70-130); Carbon Dioxide 34 mmol/L (23-31); Chloride 95 mmol/L (98-107); Glucose 104 mg/dL (83-110); Potassium 3.6 mmol/L (3.5-5.1); Sodium 137 mmol/L (136-145)
[2020-12-22] MEDS: Mometasone/Formoterol 200/5 60 PUFF INH SCH ×2 (06:21→18:17)
[2020-12-22] MEDS: guaiFENesin ER 600 MG TAB PO PRN (08:34)
[2020-12-22] MEDS: Hydrochlorothiazide 25 MG TAB PO SCH (08:35)
[2020-12-22] MEDS: Lisinopril 20 MG TAB PO SCH ×2 (08:36→10:03)
[2020-12-22] MEDS: Carvedilol 6.25 MG TAB PO SCH ×2 (08:36→20:47)
[2020-12-22] MEDS: FLUoxetine HCl 20 MG CAP PO SCH (08:37)
[2020-12-22] MEDS: Potassium Chloride 10 MEQ TAB PO SCH (08:37)
[2020-12-22] MEDS: Polyethylene Glycol 3350 17 GM Packet PO SCH (08:38)
--- NOTE | 2020-12-22 13:18 | PRG ---
DATE OF SERVICE: 12/22/2020 SUBJECTIVE: This is a pleasant 75-year-old female, here status post COVID pneumonia status post intubation. She is here for PT and OT services for deconditioning secondary to above. The patient is doing well overall. Her sugars are well controlled. Her blood pressure is on the low side. We will adjust her blood pressure medications today. REVIEW OF SYSTEMS: Denies any fever, chills, cough, congestion, chest pain, palpitations, nausea, vomiting, or diarrhea. Does report generalized weakness, lower extremities greater than upper extremities. OBJECTIVE: VITAL SIGNS: Temperature 97.8 degrees Fahrenheit, pulse 72 to 88, blood pressure ranging from 111/56 to 118/59, respirations 18, O2 sats 98% on 2 L nasal cannula. GENERAL: A well-appearing 75-year-old female, sitting up in a wheelchair at bedside, in no acute distress. RESPIRATORY: Distant breath sounds, but no wheezes or rhonchi. CARDIOVASCULAR: Regular rate and rhythm. No murmurs, gallops, or rubs. GI: Soft, nontender to palpation. Bowel sounds positive in all 4 quadrants. EXTREMITIES: Generalized weakness present, lower extremities greater than upper extremities; however, overall improving. LABORATORY RESULTS: White cells 7.9, hemoglobin and hematocrit 8.4 and 26.0, and platelets 188. Sodium 137, potassium 3.6, chloride 95, CO2 of 34, BUN 27, creatinine 0.71, GFR of 81, glucose ranging from 92 to 113, and calcium of 8.0. ASSESSMENT: 1. Deconditioning secondary to COVID pneumonia, requiring PT and OT services. 2. Anemia, stable. 3. Possible gastrointestinal bleed, possibly due to hiatal hernia with erosive gastritis versus arteriovenous malformation. 4. Hypertension. 5. Hyperlipidemia. 6. Depression. 7. Anxiety. 8. Weakness. 9. Chronic obstructive pulmonary disease. 10. Obesity. PLAN: 1. Continue to monitor hemoglobin and hematocrit, it has gone down slightly since last time we bertha lab work. We will continue to monitor. The patient is asymptomatic at this time. Continue to monitor for any dark bowel movements. She will need outpatient GI consult after discharge. 2. Melatonin p.r.n. for insomnia. 3. Continue to monitor vital signs and blood pressure. 4. Continue Dulera inhaler scheduled with DuoNebs p.r.n. 5. Continue SSRI. 6. Fall precautions. 7. Diabetic diet with sliding scale coverage. Job ID: [id number]
[2020-12-22] MEDS: Amlodipine 5 MG TAB PO SCH (20:47)
[2020-12-22] MEDS: metFORMIN 500 MG TAB PO SCH (20:47)
[2020-12-22] MEDS: Atorvastatin Calcium 20 MG TAB PO SCH (20:47)
[2020-12-22] MEDS: Melatonin 3 MG TAB PO PRN (21:29)
[2020-12-23] MEDS: Mometasone/Formoterol 200/5 60 PUFF INH SCH ×2 (05:50→17:38)
[2020-12-23] MEDS: Carvedilol 6.25 MG TAB PO SCH ×2 (08:18→20:52)
[2020-12-23] MEDS: Lisinopril 20 MG TAB PO SCH (08:18)
[2020-12-23] MEDS: FLUoxetine HCl 20 MG CAP PO SCH (08:18)
[2020-12-23] MEDS: Potassium Chloride 10 MEQ TAB PO SCH (08:19)
[2020-12-23] MEDS: Polyethylene Glycol 3350 17 GM Packet PO SCH (08:19)
[2020-12-23] MEDS: Hydrochlorothiazide 25 MG TAB PO SCH (08:20)
[2020-12-23] MEDS: metFORMIN 500 MG TAB PO SCH (20:51)
[2020-12-23] MEDS: Atorvastatin Calcium 20 MG TAB PO SCH (20:51)
[2020-12-23] MEDS: Amlodipine 5 MG TAB PO SCH (20:51)
[2020-12-23] MEDS: Melatonin 3 MG TAB PO PRN (23:10)
[2020-12-24 05:54] LABS: Anion Gap 12 mmol/L (10-20); BUN (Urea Nitrogen) 19 mg/dL (9.8-20.1); Calc. Creatinine Clearance 95 mL/min (70-130); Calcium 8.3 mg/dL (7.8-10.44); Carbon Dioxide 35 mmol/L (23-31); Chloride 97 mmol/L (98-107); Glucose 103 mg/dL (83-110); Potassium 3.8 mmol/L (3.5-5.1); Sodium 140 mmol/L (136-145)
[2020-12-24 06:03] LABS: #Basophils 0.1 thou/uL (0.0-0.2); #Eosinphils 0.1 thou/uL (0.0-0.7); #Monocytes 0.6 thou/uL (0.11-0.59); #Neutrophils 5.3 thou/uL (1.40-6.50); %Eosinophils 1.9 % (0.0-10.0); %Lymphocytes 14.5 % (21.0-51.0); %Neutrophils 74.6 % (42.0-75.0); Hemoglobin 8.8 g/dL (12.0-16.0); Mean Corpuscular HGB CONC 31.7 g/dL (32.0-36.0); Mean Corpuscular Hemoglobin 29.8 pg (27.0-31.0); Mean Corpuscular Volume 94.2 fL (78.0-98.0); Mean Platelet Volume 7.5 fL (7.4-10.4); Platelet Count 176 thou/uL (130-400); RBC Distribution Width 15.1 % (11.5-14.5); Red Blood Cell (RBC) Count 2.96 mill/uL (4.20-5.40); White Blood Cell (WBC) Count 7.1 thou/uL (4.8-10.8)
[2020-12-24] MEDS: Mometasone/Formoterol 200/5 60 PUFF INH SCH ×2 (06:06→17:58)
[2020-12-24] MEDS: Carvedilol 6.25 MG TAB PO SCH ×2 (08:12→21:09)
[2020-12-24] MEDS: Lisinopril 20 MG TAB PO SCH (08:13)
[2020-12-24] MEDS: Potassium Chloride 10 MEQ TAB PO SCH (08:14)
[2020-12-24] MEDS: Hydrochlorothiazide 25 MG TAB PO SCH (08:14)
[2020-12-24] MEDS: FLUoxetine HCl 20 MG CAP PO SCH (08:14)
[2020-12-24] MEDS: Polyethylene Glycol 3350 17 GM Packet PO SCH (08:20)
[2020-12-24] MEDS: Amlodipine 5 MG TAB PO SCH (21:09)
[2020-12-24] MEDS: Atorvastatin Calcium 20 MG TAB PO SCH (21:10)
[2020-12-24] MEDS: metFORMIN 500 MG TAB PO SCH (21:10)
[2020-12-24] MEDS: Melatonin 3 MG TAB PO PRN (22:13)
[2020-12-25] MEDS: Mometasone/Formoterol 200/5 60 PUFF INH SCH ×2 (05:41→18:44)
[2020-12-25] MEDS: Polyethylene Glycol 3350 17 GM Packet PO SCH ×2 (08:48→08:53)
[2020-12-25] MEDS: Carvedilol 6.25 MG TAB PO SCH ×2 (08:50→20:50)
[2020-12-25] MEDS: Lisinopril 20 MG TAB PO SCH (08:50)
[2020-12-25] MEDS: FLUoxetine HCl 20 MG CAP PO SCH (08:51)
[2020-12-25] MEDS: Potassium Chloride 10 MEQ TAB PO SCH (08:51)
[2020-12-25] MEDS: Hydrochlorothiazide 25 MG TAB PO SCH (08:51)
[2020-12-25] MEDS ORDERED: Sodium Chloride 0.9% 10 ML ONE (09:20)
--- NOTE | 2020-12-25 13:36 | PRG ---
DATE OF SERVICE: 12/24/2020 SUBJECTIVE: Ms. Garcia is resting in bed. She denies any concerns. Her family is in the room. OBJECTIVE: VITAL SIGNS: She is afebrile. Heart rate is 67, respirations 16, oxygen saturation 100% on 2 L via nasal cannula, blood pressure 143/62. CARDIOVASCULAR SYSTEM: S1-S2 plus. RESPIRATORY SYSTEM: Normal vesicular breath sounds with occasional rhonchi, decreased air entry in the bases. ABDOMEN: Soft and nontender. Bowel sounds heard in all quadrants. EXTREMITIES: Without cyanosis or clubbing. CENTRAL NERVOUS SYSTEM: Generalized weakness. IMPRESSION: 1. Recent COVID pneumonia. 2. Hypertension. 3. Dyslipidemia. 4. Chronic obstructive pulmonary disease. 5. Anxiety and depression. PLAN: 1. Continue current medications. 2. Heart healthy diet. 3. Monitor respiratory status. 4. Titrate oxygen. 5. Breathing treatments. 6. Physical therapy. 7. Accu-Cheks with sliding scale coverage. Job ID: [id number]
--- NOTE | 2020-12-25 13:41 | PRG ---
DATE OF SERVICE: 12/25/2020 SUBJECTIVE: Ms. Garcia is up in her chair. She just finished her lunch. She is very happy with her progress. She denies any chest pain or shortness of breath. OBJECTIVE: VITAL SIGNS: She is afebrile. Heart rate is 69, respirations 18, oxygen saturation 100% on 2 L, blood pressure 123/61. Blood sugars are 96, 94, 127, 100, and 109. CARDIOVASCULAR SYSTEM: S1-S2 plus. RESPIRATORY SYSTEM: Normal vesicular breath sounds. ABDOMEN: Soft and nontender. Bowel sounds heard in all quadrants. EXTREMITIES: Without cyanosis or clubbing. CENTRAL NERVOUS SYSTEM: Improving deconditioning. IMPRESSION: 1. Recent COVID-19 infection. 2. Hypoxemic respiratory failure, possibly acute. 3. Chronic obstructive pulmonary disease. 4. Diabetes mellitus type 2. 5. Hypertension. 6. Dyslipidemia. 7. Deconditioning. PLAN: 1. Continue current medications. 2. 1800 calorie heart healthy ADA diet. 3. Accu-Cheks with sliding scale coverage. 4. Monitor respiratory status. 5. Continue therapy. 6. Routine laboratory values. 7. Dr. Steven durbin. Job ID: [id number]
[2020-12-25] MEDS: Amlodipine 5 MG TAB PO SCH (20:50)
[2020-12-25] MEDS: Atorvastatin Calcium 20 MG TAB PO SCH (20:50)
[2020-12-25] MEDS: metFORMIN 500 MG TAB PO SCH (20:50)
[2020-12-25] MEDS: Melatonin 3 MG TAB PO PRN (22:29)
[2020-12-26] MEDS: Mometasone/Formoterol 200/5 60 PUFF INH SCH ×2 (05:31→17:49)
[2020-12-26] MEDS: Carvedilol 6.25 MG TAB PO SCH ×2 (08:29→21:34)
[2020-12-26] MEDS: FLUoxetine HCl 20 MG CAP PO SCH (08:31)
[2020-12-26] MEDS: Lisinopril 20 MG TAB PO SCH (08:31)
[2020-12-26] MEDS: Hydrochlorothiazide 25 MG TAB PO SCH (08:31)
[2020-12-26] MEDS: Polyethylene Glycol 3350 17 GM Packet PO SCH (08:32)
[2020-12-26] MEDS: Potassium Chloride 10 MEQ TAB PO SCH (08:32)
[2020-12-26] MEDS: Amlodipine 5 MG TAB PO SCH (21:35)
[2020-12-26] MEDS: metFORMIN 500 MG TAB PO SCH (21:35)
[2020-12-26] MEDS: Atorvastatin Calcium 20 MG TAB PO SCH (21:35)
[2020-12-26] MEDS: Melatonin 3 MG TAB PO PRN (21:36)
[2020-12-27] MEDS: Mometasone/Formoterol 200/5 60 PUFF INH SCH ×2 (06:29→18:04)
[2020-12-27] MEDS: Lisinopril 20 MG TAB PO SCH (09:37)
[2020-12-27] MEDS: Hydrochlorothiazide 25 MG TAB PO SCH (09:45)
[2020-12-27] MEDS: FLUoxetine HCl 20 MG CAP PO SCH (09:45)
[2020-12-27] MEDS: Carvedilol 6.25 MG TAB PO SCH ×2 (09:46→21:09)
[2020-12-27] MEDS: Potassium Chloride 10 MEQ TAB PO SCH (09:52)
[2020-12-27] MEDS: Polyethylene Glycol 3350 17 GM Packet PO SCH (09:52)
[2020-12-27] MEDS: Melatonin 3 MG TAB PO PRN (21:09)
[2020-12-27] MEDS: Amlodipine 5 MG TAB PO SCH (21:09)
[2020-12-27] MEDS: metFORMIN 500 MG TAB PO SCH (21:09)
[2020-12-27] MEDS: Atorvastatin Calcium 20 MG TAB PO SCH (21:09)
[2020-12-28 05:40] LABS: #Basophils 0.1 thou/uL (0.0-0.2); #Eosinphils 0.1 thou/uL (0.0-0.7); #Monocytes 0.5 thou/uL (0.11-0.59); #Neutrophils 3.4 thou/uL (1.40-6.50); %Basophils 1.3 % (0.0-1.0); %Neutrophils 67.8 % (42.0-75.0); Hemoglobin 8.8 g/dL (12.0-16.0); Mean Corpuscular Hemoglobin 30.4 pg (27.0-31.0); Mean Corpuscular Volume 95.1 fL (78.0-98.0); Mean Platelet Volume 7.1 fL (7.4-10.4); Platelet Count 152 thou/uL (130-400); RBC Distribution Width 14.7 % (11.5-14.5); Red Blood Cell (RBC) Count 2.88 mill/uL (4.20-5.40)
[2020-12-28 05:53] LABS: Anion Gap 13 mmol/L (10-20); BUN (Urea Nitrogen) 13 mg/dL (9.8-20.1); Calc. Creatinine Clearance 98 mL/min (70-130); Calcium 8.6 mg/dL (7.8-10.44); Carbon Dioxide 37 mmol/L (23-31); Chloride 96 mmol/L (98-107); Glucose 95 mg/dL (83-110); Sodium 142 mmol/L (136-145)
[2020-12-28] MEDS: Mometasone/Formoterol 200/5 60 PUFF INH SCH ×2 (06:14→17:46)
[2020-12-28] MEDS: Carvedilol 6.25 MG TAB PO SCH ×2 (08:10→20:58)
[2020-12-28] MEDS: Hydrochlorothiazide 25 MG TAB PO SCH (08:10)
[2020-12-28] MEDS: Potassium Chloride 10 MEQ TAB PO SCH (08:10)
[2020-12-28] MEDS: Polyethylene Glycol 3350 17 GM Packet PO SCH (08:11)
[2020-12-28] MEDS: Lisinopril 20 MG TAB PO SCH (08:11)
[2020-12-28] MEDS: FLUoxetine HCl 20 MG CAP PO SCH (08:11)
[2020-12-28] MEDS: metFORMIN 500 MG TAB PO SCH (20:58)
[2020-12-28] MEDS: Amlodipine 5 MG TAB PO SCH (20:59)
[2020-12-28] MEDS: Melatonin 3 MG TAB PO PRN (20:59)
[2020-12-28] MEDS: Atorvastatin Calcium 20 MG TAB PO SCH (20:59)
[2020-12-29] MEDS: Mometasone/Formoterol 200/5 60 PUFF INH SCH ×2 (06:26→18:23)
[2020-12-29] MEDS: Polyethylene Glycol 3350 17 GM Packet PO SCH (09:46)
[2020-12-29] MEDS: Potassium Chloride 10 MEQ TAB PO SCH (09:47)
[2020-12-29] MEDS: Hydrochlorothiazide 25 MG TAB PO SCH (09:47)
[2020-12-29] MEDS: Lisinopril 20 MG TAB PO SCH (09:47)
[2020-12-29] MEDS: Carvedilol 6.25 MG TAB PO SCH ×2 (09:47→20:34)
[2020-12-29] MEDS: FLUoxetine HCl 20 MG CAP PO SCH (09:48)
[2020-12-29] MEDS: Atorvastatin Calcium 20 MG TAB PO SCH (20:34)
[2020-12-29] MEDS: metFORMIN 500 MG TAB PO SCH (20:34)
[2020-12-29] MEDS: Amlodipine 5 MG TAB PO SCH (20:34)
[2020-12-29] MEDS: Melatonin 3 MG TAB PO PRN (22:15)
[2020-12-30] MEDS: Mometasone/Formoterol 200/5 60 PUFF INH SCH ×2 (05:12→18:24)
[2020-12-30] MEDS: Carvedilol 6.25 MG TAB PO SCH ×2 (08:37→20:57)
[2020-12-30] MEDS: Potassium Chloride 10 MEQ TAB PO SCH (08:38)
[2020-12-30] MEDS: FLUoxetine HCl 20 MG CAP PO SCH (08:38)
[2020-12-30] MEDS: Hydrochlorothiazide 25 MG TAB PO SCH (08:38)
[2020-12-30] MEDS: Lisinopril 20 MG TAB PO SCH (08:38)
[2020-12-30] MEDS: Polyethylene Glycol 3350 17 GM Packet PO SCH (08:39)
[2020-12-30] MEDS ORDERED: Sodium Chloride 0.9% 10 ML ONE (09:28)
--- NOTE | 2020-12-30 18:17 | PRG ---
DATE OF SERVICE: 12/29/2020 SUBJECTIVE: This is a well-appearing 75-year-old female, here for continued PT and OT services. The patient does have a history of melenic stools with a proposed GI bleed. Her H and H have been stable and she has not required any blood transfusions here. She does continue to have slight melenic stools, but again H and H and vital signs are stable. We will continue to monitor this and she will need help patient's GI consult. REVIEW OF SYSTEMS: Denies any fever, chills, cough, congestion, nausea, vomiting, diarrhea, chest pain, palpitations. OBJECTIVE: VITAL SIGNS: Blood pressure ranging 139/64 to 159/67, pulse 80, respirations 18, O2 sats 98% on 2 L nasal cannula. GENERAL: Well-appearing 75-year-old female, sitting up in her chair next to the bed, in no acute distress. CARDIOVASCULAR: Regular rate and rhythm. No murmurs, gallops, rubs. RESPIRATIONS: Clear to auscultation bilaterally. No wheeze or rhonchi. GI: Soft, nontender to palpation. Bowel sounds positive in all four quadrants. EXTREMITIES: Improving strength in both upper and lower extremities. LABORATORY: Hemoglobin 8.8, hematocrit 27.4, platelets 152, MCV 95.1. Chemistry; sodium 142, potassium 4.8, chloride 96, CO2 of 37, BUN 13, creatinine 0.64, GFR greater than 90%. Glucose has ranged from 83 to 158. ASSESSMENT: 1. Status post COVID requiring PT and OT services. 2. Weakness secondary to above. 3. Melenic stools requiring outpatient GI consult, possibly due to gastrointestinal bleed. 4. Hypertension. 5. Hyperlipidemia. 6. Depression. 7. Anxiety. 8. Weakness. 9. Chronic obstructive pulmonary disease. 10. Obesity. PLAN: 1. Continue PT and OT services. 2. Continue monitor H and H, which has been stable during her stay. We will get a followup CBC in two days. 3. Melatonin p.r.n. for insomnia. 4. Continue Dulera inhaler as scheduled with DuoNebs p.r.n. 5. Continue SSRI. 6. Fall precautions. Job ID: [id number]
[2020-12-30] MEDS: Amlodipine 5 MG TAB PO SCH (20:56)
[2020-12-30] MEDS: Atorvastatin Calcium 20 MG TAB PO SCH (20:56)
[2020-12-30] MEDS: metFORMIN 500 MG TAB PO SCH (20:56)
[2020-12-30] MEDS: Melatonin 3 MG TAB PO PRN (22:38)
[2020-12-31] MEDS: Mometasone/Formoterol 200/5 60 PUFF INH SCH ×2 (05:13→17:45)
[2020-12-31] MEDS: Hydrochlorothiazide 25 MG TAB PO SCH (09:31)
[2020-12-31] MEDS: Carvedilol 6.25 MG TAB PO SCH ×2 (09:31→20:54)
[2020-12-31] MEDS: Potassium Chloride 10 MEQ TAB PO SCH (09:31)
[2020-12-31] MEDS: Polyethylene Glycol 3350 17 GM Packet PO SCH (09:31)
[2020-12-31] MEDS: Lisinopril 20 MG TAB PO SCH (09:31)
[2020-12-31] MEDS: FLUoxetine HCl 20 MG CAP PO SCH (09:31)
[2020-12-31] MEDS: Melatonin 3 MG TAB PO PRN (20:54)
[2020-12-31] MEDS: Atorvastatin Calcium 20 MG TAB PO SCH (20:54)
[2020-12-31] MEDS: Amlodipine 5 MG TAB PO SCH (20:54)
[2020-12-31] MEDS: metFORMIN 500 MG TAB PO SCH (20:55)
[2021-01-01 05:17] LABS: Hemoglobin 8.4 g/dL (12.0-16.0); Manual Diff?? NO; Mean Corpuscular HGB CONC 31.3 g/dL (32.0-36.0); Mean Corpuscular Hemoglobin 29.5 pg (27.0-31.0); Mean Corpuscular Volume 94.2 fL (78.0-98.0); Mean Platelet Volume 6.3 fL (7.4-10.4); Platelet Count 185 thou/uL (130-400); RBC Distribution Width 14.7 % (11.5-14.5); Red Blood Cell (RBC) Count 2.84 mill/uL (4.20-5.40); White Blood Cell (WBC) Count 4.6 thou/uL (4.8-10.8)
[2021-01-01 05:18] LABS: #Eosinphils 0.1 thou/uL (0.0-0.7); #Lymphocytes 0.9 thou/uL (1.20-3.40); #Monocytes 0.6 thou/uL (0.11-0.59); %Basophils 1.1 % (0.0-1.0); %Eosinophils 1.9 % (0.0-10.0); %Lymphocytes 18.7 % (21.0-51.0); %Monocytes 12.3 % (0.0-10.0)
[2021-01-01] MEDS: Mometasone/Formoterol 200/5 60 PUFF INH SCH ×2 (06:05→18:13)
--- NOTE | 2021-01-01 07:00 | PRG ---
DATE OF SERVICE: 12/31/2020 SUBJECTIVE: The patient is lying in bed, resting, in no distress. No shortness of breath. She has not had any further melena and is ready to do more therapy next week. 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 OBJECTIVE: VITAL SIGNS: Temperature is 98.4, pulse 76, respirations 20, O2 sats 98% on 1.5 L, which is her baseline, blood pressure is 123/63. RESPIRATORY: Lungs are clear. HEART: Cardiac with decreased breath sounds. Cardiac examination shows regular rhythm. ABDOMEN: Soft. Nontender. LABORATORY DATA: Accu-Cheks 98 to 127. ASSESSMENT: 1. Resolving critical illness myopathy. 2. status post COVID-19, on stable chronic oxygen supplementation. 3. Hypertension, controlled to goal. 4. History of melena with stable hemoglobin, and we will check hemoglobin again tomorrow and GI followup as an outpatient. 5. Anxiety and depression, stable. 6. Chronic obstructive pulmonary disease, stable. PLAN: 1. Continue PT, OT. 2. Repeat CBC in the a.m. 3. Continue Dulera inhaler. 4. Continue to monitor for increased anxiety. Job ID: [id number]
[2021-01-01] MEDS: Potassium Chloride 10 MEQ TAB PO SCH (08:29)
[2021-01-01] MEDS: FLUoxetine HCl 20 MG CAP PO SCH (08:29)
[2021-01-01] MEDS: Lisinopril 20 MG TAB PO SCH (08:29)
[2021-01-01] MEDS: Hydrochlorothiazide 25 MG TAB PO SCH (08:30)
[2021-01-01] MEDS: Carvedilol 6.25 MG TAB PO SCH ×2 (08:30→21:22)
[2021-01-01] MEDS: Polyethylene Glycol 3350 17 GM Packet PO SCH (08:32)
[2021-01-01] MEDS: Melatonin 3 MG TAB PO PRN (21:22)
[2021-01-01] MEDS: Atorvastatin Calcium 20 MG TAB PO SCH (21:23)
[2021-01-01] MEDS: metFORMIN 500 MG TAB PO SCH (21:23)
[2021-01-01] MEDS: Amlodipine 5 MG TAB PO SCH (21:23)
[2021-01-02] MEDS: Mometasone/Formoterol 200/5 60 PUFF INH SCH ×2 (06:03→17:47)
[2021-01-02] MEDS: Carvedilol 6.25 MG TAB PO SCH ×2 (09:10→20:53)
[2021-01-02] MEDS: Hydrochlorothiazide 25 MG TAB PO SCH (09:10)
[2021-01-02] MEDS: FLUoxetine HCl 20 MG CAP PO SCH (09:11)
[2021-01-02] MEDS: Potassium Chloride 10 MEQ TAB PO SCH (09:11)
[2021-01-02] MEDS: Lisinopril 20 MG TAB PO SCH (09:11)
[2021-01-02] MEDS: Polyethylene Glycol 3350 17 GM Packet PO SCH (09:12)
--- NOTE | 2021-01-02 13:14 | PRG ---
DATE OF SERVICE: 01/02/2021 SUBJECTIVE: The patient is a 75-year-old female here for PT and OT services, status post COVID pneumonia. The patient is doing well, sitting up in her wheelchair next to bed with no acute complaints. REVIEW OF SYSTEMS: Denies any fever, chills, cough, congestion, chest pain, palpitations, nausea, vomiting, diarrhea. She states that her weakness is improving steadily. OBJECTIVE: VITAL SIGNS: Temperature 96.8, pulse 73 to 81, blood pressure 130/63 to 140/70, respirations 16, O2 sats 100% on 1.5 L nasal cannula. GENERAL: Well-appearing 75-year-old female, in no acute distress. HEART: Regular rate and rhythm. No murmurs, gallops, or rubs. RESPIRATIONS: Clear to auscultation bilaterally. No wheezes or rhonchi. ABDOMEN: Soft, nontender to palpation. Bowel sounds positive in all 4 quadrants. ASSESSMENT: 1. Status post COVID pneumonia requiring PT and OT services. 2. Anemia secondary to possible GI bleed with stable H and H. 3. Hypertension. 4. Anxiety and depression. 5. Chronic obstructive pulmonary disease. PLAN: 1. Continue PT and OT services. Continue to monitor CBC. Continue Dulera inhaler scheduled and DuoNeb p.r.n. 2. We will look to remove as this could be an infection risk. Job ID: [id number]
[2021-01-02] MEDS: Amlodipine 5 MG TAB PO SCH (20:52)
[2021-01-02] MEDS: metFORMIN 500 MG TAB PO SCH (20:52)
[2021-01-02] MEDS: Atorvastatin Calcium 20 MG TAB PO SCH (20:53)
[2021-01-02] MEDS: Melatonin 3 MG TAB PO PRN (22:26)
[2021-01-03] MEDS: Mometasone/Formoterol 200/5 60 PUFF INH SCH ×2 (06:01→19:19)
[2021-01-03] MEDS: Hydrochlorothiazide 25 MG TAB PO SCH (09:02)
[2021-01-03] MEDS: Carvedilol 6.25 MG TAB PO SCH ×2 (09:02→21:23)
[2021-01-03] MEDS: Lisinopril 20 MG TAB PO SCH (09:03)
[2021-01-03] MEDS: Polyethylene Glycol 3350 17 GM Packet PO SCH (09:03)
[2021-01-03] MEDS: FLUoxetine HCl 20 MG CAP PO SCH (09:03)
[2021-01-03] MEDS: Potassium Chloride 10 MEQ TAB PO SCH (09:03)
[2021-01-03] MEDS: metFORMIN 500 MG TAB PO SCH (21:24)
[2021-01-03] MEDS: Amlodipine 5 MG TAB PO SCH (21:24)
[2021-01-03] MEDS: Atorvastatin Calcium 20 MG TAB PO SCH (21:24)
[2021-01-03] MEDS: Melatonin 3 MG TAB PO PRN (22:32)
[2021-01-04] MEDS: Mometasone/Formoterol 200/5 60 PUFF INH SCH ×2 (07:25→17:52)
[2021-01-04] MEDS: Potassium Chloride 10 MEQ TAB PO SCH (09:48)
[2021-01-04] MEDS: Hydrochlorothiazide 25 MG TAB PO SCH (09:48)
[2021-01-04] MEDS: Lisinopril 20 MG TAB PO SCH (09:48)
[2021-01-04] MEDS: Carvedilol 6.25 MG TAB PO SCH ×2 (09:49→20:52)
[2021-01-04] MEDS: FLUoxetine HCl 20 MG CAP PO SCH (09:49)
[2021-01-04] MEDS: Polyethylene Glycol 3350 17 GM Packet PO SCH (09:49)
[2021-01-04] MEDS: Melatonin 3 MG TAB PO PRN (20:52)
[2021-01-04] MEDS: metFORMIN 500 MG TAB PO SCH (20:53)
[2021-01-04] MEDS: Amlodipine 5 MG TAB PO SCH (20:53)
[2021-01-04] MEDS: Atorvastatin Calcium 20 MG TAB PO SCH (20:53)
[2021-01-05] MEDS: Mometasone/Formoterol 200/5 60 PUFF INH SCH ×2 (06:09→19:04)
[2021-01-05] MEDS: Lisinopril 20 MG TAB PO SCH (09:09)
[2021-01-05] MEDS: Hydrochlorothiazide 25 MG TAB PO SCH (09:10)
[2021-01-05] MEDS: Carvedilol 6.25 MG TAB PO SCH ×2 (09:10→20:25)
[2021-01-05] MEDS: Potassium Chloride 10 MEQ TAB PO SCH (09:11)
[2021-01-05] MEDS: Polyethylene Glycol 3350 17 GM Packet PO SCH (09:12)
[2021-01-05] MEDS: FLUoxetine HCl 20 MG CAP PO SCH (09:13)
--- NOTE | 2021-01-05 15:49 | PRG ---
DATE OF SERVICE: 01/05/2021 SUBJECTIVE: This is a pleasant 75-year-old female here for PT and OT services, status post COVID infection. The patient is doing well overall. No complaints. No concerns from nursing staff either. REVIEW OF SYSTEMS: Denies any fever, chills, cough, congestion, palpitations, chest pain, nausea, vomiting, diarrhea. OBJECTIVE: VITAL SIGNS: Temperature 96.6, pulse 77 to 75, blood pressure 130/66 to 131/61, O2 sats 98% on 1.5 L nasal cannula, respirations 18. Blood sugars ranging from 80 to 121. ASSESSMENT: 1. Weakness, status post COVID infection requiring PT and OT services. 2. Anemia secondary to possible GI bleed, stable H and H. 3. Hypertension. 4. Anxiety and depression. 5. COPD. PLAN: 1. Continue PT and OT services. 2. Continue to monitor CBC. 3. Continue Dulera inhaler. 4. Discharge planning: Consult home health for PT and OT services following discharge. Job ID: [id number]
[2021-01-05] MEDS: Atorvastatin Calcium 20 MG TAB PO SCH (20:26)
[2021-01-05] MEDS: Melatonin 3 MG TAB PO PRN (20:26)
[2021-01-05] MEDS: metFORMIN 500 MG TAB PO SCH (20:26)
[2021-01-05] MEDS: Amlodipine 5 MG TAB PO SCH (20:26)
[2021-01-06] MEDS: Mometasone/Formoterol 200/5 60 PUFF INH SCH ×2 (05:19→18:11)
[2021-01-06 05:59] LABS: BUN (Urea Nitrogen) 13 mg/dL (9.8-20.1); Calc. Creatinine Clearance 89 mL/min (70-130); Calcium 8.7 mg/dL (7.8-10.44); Glucose 102 mg/dL (83-110)
[2021-01-06 06:03] LABS: Chloride 97 mmol/L (98-107); Potassium 3.8 mmol/L (3.5-5.1); Sodium 146 mmol/L (136-145)
[2021-01-06 06:13] LABS: Anisocytosis SLIGHT = 6-15 cells (100X) (0-5/hpf); Band 14 % (5-11); Hemoglobin 8.4 g/dL (12.0-16.0); Hypochromia MODERATE=16-30 cells (100X) (0-5/hpf); Lymphocytes 23 % (21-51); MDiff Complete? YES; Mean Corpuscular HGB CONC 30.9 g/dL (32.0-36.0); Mean Corpuscular Hemoglobin 29.2 pg (27.0-31.0); Mean Corpuscular Volume 94.7 fL (78.0-98.0); Monocytes 5 % (0-10); Neutrophil 56 % (42-75); Nucleated RBC 1 % (0); Ovalocytes SLIGHT = 2-5 cells (100X) (0-1/hpf); Platelet Count 307 thou/uL (130-400); Platelet Morphology Comment Appears Adequate; RBC Distribution Width 14.5 % (11.5-14.5); Red Blood Cell (RBC) Count 2.86 mill/uL (4.20-5.40); Target Cells SLIGHT = 2-5 cells (100X) (0-1/hpf); White Blood Cell (WBC) Count 5.4 thou/uL (4.8-10.8)
[2021-01-06 06:25] LABS: Carbon Dioxide 33 mmol/L (23-31)
[2021-01-06 06:45] LABS: Anion Gap 20 mmol/L (10-20)
[2021-01-06] MEDS: Carvedilol 6.25 MG TAB PO SCH ×2 (09:09→20:27)
[2021-01-06] MEDS: Potassium Chloride 10 MEQ TAB PO SCH (09:09)
[2021-01-06] MEDS: FLUoxetine HCl 20 MG CAP PO SCH (09:09)
[2021-01-06] MEDS: Polyethylene Glycol 3350 17 GM Packet PO SCH (09:10)
[2021-01-06] MEDS: Hydrochlorothiazide 25 MG TAB PO SCH (09:10)
[2021-01-06] MEDS: Lisinopril 20 MG TAB PO SCH (09:10)
[2021-01-06] MEDS: Amlodipine 5 MG TAB PO SCH (20:27)
[2021-01-06] MEDS: Atorvastatin Calcium 20 MG TAB PO SCH (20:28)
[2021-01-06] MEDS: metFORMIN 500 MG TAB PO SCH (20:28)
[2021-01-06] MEDS: Melatonin 3 MG TAB PO PRN (20:28)
[2021-01-07] MEDS: Mometasone/Formoterol 200/5 60 PUFF INH SCH ×2 (05:25→18:46)
[2021-01-07] MEDS: Lisinopril 20 MG TAB PO SCH (08:44)
[2021-01-07] MEDS: Polyethylene Glycol 3350 17 GM Packet PO SCH (08:45)
[2021-01-07] MEDS: FLUoxetine HCl 20 MG CAP PO SCH (08:45)
[2021-01-07] MEDS: Carvedilol 6.25 MG TAB PO SCH ×2 (08:45→20:53)
[2021-01-07] MEDS: Hydrochlorothiazide 25 MG TAB PO SCH (08:45)
[2021-01-07] MEDS: Potassium Chloride 10 MEQ TAB PO SCH (08:45)
--- NOTE | 2021-01-07 10:16 | PRG ---
DATE OF SERVICE: 01/07/2021 SUBJECTIVE: The patient is well-appearing 75-year-old female, doing well. No complaints. No concerns from nursing staff. REVIEW OF SYSTEMS: Denies fever, chills, nausea, vomiting, diarrhea, chest pain, palpitations. Her weakness is getting better. OBJECTIVE: VITAL SIGNS: Temperature 97.2, pulse 80, blood pressure range 113/59 to 159/68, respirations 20, O2 saturation 96% on 1.5 L nasal cannula. GENERAL: Well-appearing, well-developed 75-year-old female, lying in bed, no acute distress. HEART: Regular rate and rhythm. No murmurs, gallops, or rubs. RESPIRATORY: Clear to auscultation bilaterally. GI: Soft, nontender to palpation. Bowel sounds positive in all four quadrants. EXTREMITIES: Improving weakness. NEUROLOGIC: Alert and oriented x4. Cooperative, pleasant. ASSESSMENT: 1. Weakness status post COVID pneumonia requiring PT and OT services. 2. Anemia secondary to possible gastrointestinal bleed with stable hemoglobin and hematocrit. 3. Hypertension. 4. Anxiety, depression. 5. Chronic obstructive pulmonary disease. PLAN: 1. Continue PT and OT services. 2. Continue to monitor CBC. DISCHARGE PLANNIN. Consult home health for PT and OT services. 2. Follow up with Case Management for consult. Job ID: [id number]
[2021-01-07 19:50] VITALS: BMI 31.8
[2021-01-07] MEDS: Amlodipine 5 MG TAB PO SCH (20:52)
[2021-01-07] MEDS: Atorvastatin Calcium 20 MG TAB PO SCH (20:53)
[2021-01-07] MEDS: metFORMIN 500 MG TAB PO SCH (20:53)
[2021-01-07] MEDS: Melatonin 3 MG TAB PO PRN (20:53)
[2021-01-08] MEDS: Mometasone/Formoterol 200/5 60 PUFF INH SCH ×2 (05:52→18:15)
[2021-01-08] MEDS: Polyethylene Glycol 3350 17 GM Packet PO SCH (09:24)
[2021-01-08] MEDS: Hydrochlorothiazide 25 MG TAB PO SCH (09:24)
[2021-01-08] MEDS: Potassium Chloride 10 MEQ TAB PO SCH (09:24)
[2021-01-08] MEDS: Carvedilol 6.25 MG TAB PO SCH ×2 (09:24→20:46)
[2021-01-08] MEDS: Lisinopril 20 MG TAB PO SCH (09:24)
[2021-01-08] MEDS: FLUoxetine HCl 20 MG CAP PO SCH (09:24)
[2021-01-08] MEDS: metFORMIN 500 MG TAB PO SCH (20:46)
[2021-01-08] MEDS: Amlodipine 5 MG TAB PO SCH ×2 (20:46→20:47)
[2021-01-08] MEDS: Melatonin 3 MG TAB PO PRN (20:46)
[2021-01-08] MEDS: Atorvastatin Calcium 20 MG TAB PO SCH (20:46)
[2021-01-09] MEDS: Mometasone/Formoterol 200/5 60 PUFF INH SCH ×2 (05:37→17:43)
[2021-01-09] MEDS: Polyethylene Glycol 3350 17 GM Packet PO SCH (08:13)
[2021-01-09] MEDS: Hydrochlorothiazide 25 MG TAB PO SCH (08:13)
[2021-01-09] MEDS: FLUoxetine HCl 20 MG CAP PO SCH (08:14)
[2021-01-09] MEDS: Carvedilol 6.25 MG TAB PO SCH ×2 (08:15→20:35)
[2021-01-09] MEDS: Potassium Chloride 10 MEQ TAB PO SCH (08:15)
[2021-01-09] MEDS: Lisinopril 20 MG TAB PO SCH (08:19)
[2021-01-09] MEDS: Cepastat Lozenges 1 LOZ PO PRN ×2 (10:36→15:19)
[2021-01-09] MEDS: Melatonin 3 MG TAB PO PRN (20:35)
[2021-01-09] MEDS: Amlodipine 5 MG TAB PO SCH (20:35)
[2021-01-09] MEDS: Atorvastatin Calcium 20 MG TAB PO SCH (20:35)
[2021-01-09] MEDS: metFORMIN 500 MG TAB PO SCH (20:35)
[2021-01-10] MEDS: Mometasone/Formoterol 200/5 60 PUFF INH SCH ×2 (05:32→18:13)
[2021-01-10] MEDS: Potassium Chloride 10 MEQ TAB PO SCH (08:38)
[2021-01-10] MEDS: FLUoxetine HCl 20 MG CAP PO SCH (08:38)
[2021-01-10] MEDS: Carvedilol 6.25 MG TAB PO SCH ×2 (08:39→20:33)
[2021-01-10] MEDS: Lisinopril 20 MG TAB PO SCH (08:39)
[2021-01-10] MEDS: Hydrochlorothiazide 25 MG TAB PO SCH (08:40)
[2021-01-10] MEDS: Polyethylene Glycol 3350 17 GM Packet PO SCH (08:41)
--- NOTE | 2021-01-10 20:32 | PDOC.BPN ---
- Brief Progress Note Encounter Date: 01/10/21 Encounter Time: 20:23 Subjective: Doing well. No complaints today. Anxious to get home. ROS: denies fever, chills, CP, palpitations Vital Signs - Most Recent Temp Pulse Resp BP Pulse Ox 98 F 86 18 130/74 96 01/10/21 19:44 01/10/21 19:44 01/10/21 19:44 01/10/21 19:44 01/10/21 19:44 PE General: Well-appearing 75 F, sitting in WC at side of bed in no acute distress CV: RRR, no murmurs Resp: CTAB GI: soft, non-tender to palpation. Accuchecks 01/10/21 01/10/21 01/10/21 17:00 11:23 05:34 POC Glucose 106 101 83 Assessment: 1. weakness s/p COVID PNA 2. presumed GI bleed 3. HTN Plan Patient will be discharged in 2 days with . Patient stable and doing well. continue to monitor
[2021-01-10] MEDS: Atorvastatin Calcium 20 MG TAB PO SCH (20:33)
[2021-01-10] MEDS: Amlodipine 5 MG TAB PO SCH (20:34)
[2021-01-10] MEDS: metFORMIN 500 MG TAB PO SCH (20:34)
[2021-01-10] MEDS: Melatonin 3 MG TAB PO PRN (21:12)
[2021-01-11] MEDS: Mometasone/Formoterol 200/5 60 PUFF INH SCH ×2 (05:54→17:28)
[2021-01-11] MEDS: Hydrochlorothiazide 25 MG TAB PO SCH (09:13)
[2021-01-11] MEDS: Potassium Chloride 10 MEQ TAB PO SCH (09:14)
[2021-01-11] MEDS: Carvedilol 6.25 MG TAB PO SCH ×2 (09:14→21:08)
[2021-01-11] MEDS: Lisinopril 20 MG TAB PO SCH (09:14)
[2021-01-11] MEDS: FLUoxetine HCl 20 MG CAP PO SCH (09:14)
[2021-01-11] MEDS: Polyethylene Glycol 3350 17 GM Packet PO SCH (09:15)
[2021-01-11] MEDS: metFORMIN 500 MG TAB PO SCH (21:08)
[2021-01-11] MEDS: Atorvastatin Calcium 20 MG TAB PO SCH (21:08)
[2021-01-11] MEDS: Melatonin 3 MG TAB PO PRN (21:08)
[2021-01-12] MEDS: Mometasone/Formoterol 200/5 60 PUFF INH SCH ×2 (06:13→18:33)
[2021-01-12] MEDS: Carvedilol 6.25 MG TAB PO SCH ×2 (09:25→21:22)
[2021-01-12] MEDS: Hydrochlorothiazide 25 MG TAB PO SCH (09:26)
[2021-01-12] MEDS: Potassium Chloride 10 MEQ TAB PO SCH (09:26)
[2021-01-12] MEDS: Lisinopril 20 MG TAB PO SCH (09:26)
[2021-01-12] MEDS: Polyethylene Glycol 3350 17 GM Packet PO SCH (09:27)
[2021-01-12] MEDS: FLUoxetine HCl 20 MG CAP PO SCH (09:27)
--- NOTE | 2021-01-12 13:56 | PDOC.BPN ---
- Brief Progress Note Encounter Date: 01/12/21 Encounter Time: 13:53 Subjective: Doing well. No complaints today. Anxious to get home. ROS: denies fever, chills, CP, palpitations Vital Signs - Most Recent Temp Pulse Resp BP Pulse Ox 96.1 F L 103 H 20 141/63 H 91 L 01/12/21 08:00 01/12/21 08:15 01/12/21 08:00 01/12/21 09:26 01/12/21 08:15 PE General: Well-appearing 75 F, sitting in WC at side of bed in no acute distress CV: RRR, no murmurs Resp: CTAB GI: soft, non-tender to palpation. Laboratory Results 01/10/21 01/10/21 01/11/21 17:00 20:53 06:10 POC Glucose 106 127 H 93 01/11/21 01/11/21 01/11/21 11:39 16:44 21:22 POC Glucose 93 98 116 H 01/12/21 11:49 POC Glucose 92 Assessment: 1. weakness s/p COVID PNA 2. presumed GI bleed 3. HTN 4. COPD 5. s/p acute hypoxemic resp failure Plan -Patient will be discharged with HH. -Patient stable and doing well. -continue to monitor. -Ordered rollator walker for patient -Patient is home-bound and would benefit from HH services due to HTN, COPD, and weakness secondary to COVID pna. -Please consider this my [facility] visit for this patient
[2021-01-12] MEDS: Amlodipine 5 MG TAB PO SCH (21:21)
[2021-01-12] MEDS: Atorvastatin Calcium 20 MG TAB PO SCH (21:21)
[2021-01-12] MEDS: metFORMIN 500 MG TAB PO SCH (21:22)
[2021-01-12] MEDS: Melatonin 3 MG TAB PO PRN (22:17)
[2021-01-13] MEDS: Mometasone/Formoterol 200/5 60 PUFF INH SCH (05:29)
[2021-01-13 08:42] VITALS: BP 135/61; TEMP 96.2
[2021-01-13] MEDS: Hydrochlorothiazide 25 MG TAB PO SCH (09:49)
[2021-01-13] MEDS: Lisinopril 20 MG TAB PO SCH (09:49)
[2021-01-13] MEDS: FLUoxetine HCl 20 MG CAP PO SCH (09:49)
[2021-01-13] MEDS: Carvedilol 6.25 MG TAB PO SCH (09:49)
[2021-01-13] MEDS: Potassium Chloride 10 MEQ TAB PO SCH (09:50)
[2021-01-13] MEDS: Polyethylene Glycol 3350 17 GM Packet PO SCH (09:50)
== END 2021-01-13 11:30 | disposition home health service (06) | DRG 91 ==
LOC: NAV ACUTE 21:52
PROVIDERS: ADMIT Family Medicine; ATTEND Family Medicine
DX: G72.81 Critical illness myopathy (principal); K55.21 Angiodysplasia of colon with hemorrhage; K29.71 Gastritis, unspecified, with bleeding; J96.01 Acute respiratory failure with hypoxia; I10 Essential (primary) hypertension; E78.5 Hyperlipidemia, unspecified; F32.9 Major depressive disorder, single episode, unspecified; F41.9 Anxiety disorder, unspecified; J44.9 Chronic obstructive pulmonary disease, unspecified; E66.9 Obesity, unspecified; E11.9 Type 2 diabetes mellitus without complications; B94.8 Sequelae of other specified infectious and parasitic diseases; D64.9 Anemia, unspecified; G47.00 Insomnia, unspecified; K44.9 Diaphragmatic hernia without obstruction or gangrene; K21.9 Gastro-esophageal reflux disease without esophagitis; Z87.891 Personal history of nicotine dependence; Z68.31 Body mass index [BMI] 31.0-31.9, adult; Z79.84 Long term (current) use of oral hypoglycemic drugs; Z79.899 Other long term (current) drug therapy
CPT/HCPCS: 36415; 36416; 80048; 85025; 94664; J1815; J7620; J8540

== ENCOUNTER 2021-02-01 16:08 | Emergency (ER) | payer MEDICARE ==
[2021-02-01 16:35] LABS: #Eosinphils 0.1 thou/uL (0.0-0.7); #Lymphocytes 0.6 thou/uL (1.20-3.40); #Monocytes 0.4 thou/uL (0.11-0.59); #Neutrophils 9.3 thou/uL (1.40-6.50); %Basophils 0.4 % (0.0-1.0); %Eosinophils 0.5 % (0.0-10.0); %Lymphocytes 5.4 % (21.0-51.0); %Monocytes 4.1 % (0.0-10.0); %Neutrophils 89.6 % (42.0-75.0); Hemoglobin 7.1 g/dL (12.0-16.0); Mean Corpuscular HGB CONC 30.6 g/dL (32.0-36.0); Mean Corpuscular Hemoglobin 28.5 pg (27.0-31.0); Mean Corpuscular Volume 93.2 fL (78.0-98.0); Mean Platelet Volume 6.9 fL (7.4-10.4); Platelet Count 215 thou/uL (130-400); RBC Distribution Width 16.4 % (11.5-14.5); Red Blood Cell (RBC) Count 2.49 mill/uL (4.20-5.40); White Blood Cell (WBC) Count 10.4 thou/uL (4.8-10.8)
--- NOTE | 2021-02-01 16:40 | RAD ---
Chest AP view INDICATION: History of dyspnea COMPARISON: December 10, 2020 FINDINGS: Lungs: The lungs are clear Cardiac silhouette: There is stable mild cardiomegaly Pulmonary vasculature: There is mild pulmonary vascular congestion. Pleural spaces: There is suspicion for small left pleural effusion. No definite pneumothorax is evid ent. Upper abdomen: No abnormality seen. Osseous structures: No acute osseous abnormality. Additional findings: There is radiopaque density overlying the right upper chest wall which may be e xternal to the patient related to oxygen tubing. Recommend correlation. IMPRESSION: 1. Cardiomegaly, pulmonary vascular congestion with small left pleural effusion suspicious for mild C HF. 2. Overlying radiopaque density near the upper right hemithorax. Recommend correlation for overlying artifact.
[2021-02-01 17:02] LABS: ALT (SGPT) 20 U/L (8-55); AST (SGOT) 13 U/L (5-34); Albumin 3.8 g/dL (3.4-4.8); Alkaline Phosphatase 99 U/L (40-110); Anion Gap 16 mmol/L (10-20); BUN (Urea Nitrogen) 23 mg/dL (9.8-20.1); Bilirubin, Total 0.6 mg/dL (0.2-1.2); CK (CPK) 33 U/L (29-168); Calc. Creatinine Clearance 0 mL/min (70-130); Carbon Dioxide 35 mmol/L (23-31); Chloride 93 mmol/L (98-107); Glucose 154 mg/dL (83-110); Lipase 30 U/L (8-78); Potassium 4.3 mmol/L (3.5-5.1); Protein, Total 5.8 g/dL (5.8-8.1); Sodium 140 mmol/L (136-145)
[2021-02-01] MEDS ORDERED: Sodium Chloride 0.9% 500 ML ONE ×2 (17:04→18:12)
[2021-02-01] MEDS ORDERED: Magnesium 2 GM/50 ML BAG (IN WATER) ONE (17:04)
[2021-02-01] MEDS ORDERED: Albuterol Sulfate 2.5 mg/0.5 ml Neb ONE ×2 (17:04→17:44)
[2021-02-01] MEDS ORDERED: Dexamethasone 4 mg/ml Vial ONE (17:04)
[2021-02-01] MEDS ORDERED: Dexamethasone 20 MG/5 ML VIAL ONE (17:14)
--- NOTE | 2021-02-01 18:04 | CT ---
CT PULMONARY ANGIOGRAM WITH IV CONTRAST AND 3D POSTPROCESSIN02/01/21 HISTORY: Dyspnea. FINDINGS: No filling defects are seen in the pulmonary arterial vasculature to suggest pulmonary embolism. The thoracic aorta is well opacified without aneurysmal dissection. Vascular calcifications are present. There is mediastinal lymphadenopathy measuring up to 13 mm. No pericardial effusion is seen. There is a small right and tiny left pleural effusion. There are patchy ground glass opacities in the lung fi elds bilaterally with a focal area of consolidation in the left lung base. There are degenerative hussain nges in the spine. A small hiatal hernia is present. IMPRESSION: 1. No CT evidence of pulmonary embolism. 2. Mediastinal lymphadenopathy. 3. Small pleural effusions. 4. Findings suspicious for pneumonia. 5. A follow-up exam after treatment is recommended to exclude underlying mass in the left lung madalyn ase. Code T POS: GEORGE
[2021-02-01] MEDS ORDERED: Furosemide 40 MG/4 ML VIAL ONE (18:07)
[2021-02-01 18:59] LABS: Bilirubin Negative (Negative); Blood, Urine Negative (Negative); Clarity Clear (Clear); Glucose, Urine (Dipstick) Negative (Negative); Ketone, Urine Negative (Negative); Leukocyte Trace (Negative); Nitrite Negative (Negative); Protein, Urine (Dipstick) Negative (Neg-Trace); Specific Gravity, Urine 1.015 (1.005-1.030); Urobilinogen 0.2 mg/dL (Less than 2); pH, Urine 5.5 (5.0-9.0)
[2021-02-01 19:11] LABS: Squamous Epithelial 0-3 HPF (0-3); WBC/HPF 0-3 HPF (0-3)
[2021-02-01 19:12] LABS: Bacteria/HPF Rare-Few HPF (None Seen)
== END 2021-02-01 19:30 | disposition short-term general hospital (02) ==
LOC: NAV ERS 16:08
DX: J44.1 Chronic obstructive pulmonary disease with (acute) exacerbation (principal); D64.9 Anemia, unspecified; R06.03 Acute respiratory distress; E11.9 Type 2 diabetes mellitus without complications; I11.0 Hypertensive heart disease with heart failure; I50.9 Heart failure, unspecified; Z87.891 Personal history of nicotine dependence; Z79.84 Long term (current) use of oral hypoglycemic drugs; Z79.51 Long term (current) use of inhaled steroids; Z79.899 Other long term (current) drug therapy
CPT/HCPCS: 36430; 71045; 71275; 80053; 81003; 81015; 82274; 82550; 83605; 83690; 83880; 84484; 85025; 85379; 86850; 86900; 86901; 87040; 93005; 96365; 96375; 99292; J1100; J1940; J1956; J3475; J7030; J7611; J7620; P9016; Q9967

== ENCOUNTER 2023-01-21 16:02 | Inpatient (IN) | payer MEDICARE ==
[2023-01-21] MEDS ORDERED: Polyethylene Glycol 3350 17 GM Packet PO PRN (20:33)
[2023-01-21] MEDS: Carvedilol 25 MG TAB PO SCH (21:18)
[2023-01-21] MEDS: Amlodipine 5 MG TAB PO SCH (21:18)
[2023-01-21] MEDS: Potassium Chloride 10 MEQ TAB PO SCH (21:18)
[2023-01-21] MEDS: Doxycycline 100 MG CAP PO SCH (21:19)
[2023-01-21] MEDS: guaiFENesin ER 600 MG TAB PO PRN (21:19)
[2023-01-21] MEDS: Atorvastatin Calcium 20 MG TAB PO SCH (21:19)
[2023-01-21] MEDS ORDERED: Melatonin 3 MG TAB PO SCH (22:00)
[2023-01-21] MEDS ORDERED: traZODone HCl 50 MG TAB PO SCH (22:45)
[2023-01-21] MEDS: Ipratropium/Albuterol 3 ML NEB NEB SCH (23:51)
[2023-01-22] MEDS: Ipratropium/Albuterol 3 ML NEB NEB SCH ×4 (06:17→23:46)
[2023-01-22] MEDS ORDERED: Calcium Carbonate 500 MG ChewTAB PO PRN (06:50)
[2023-01-22] MEDS ORDERED: Acetaminophen 650 MG Suppository PR PRN (06:50)
[2023-01-22] MEDS ORDERED: Benzonatate 100 MG CAP PO PRN (06:50)
[2023-01-22] MEDS ORDERED: Senokot S 8.6-50 MG TAB PO PRN (06:50)
[2023-01-22] MEDS ORDERED: Cepastat Lozenges 1 LOZ PO PRN (06:50)
[2023-01-22] MEDS ORDERED: Bisacodyl 10 MG SUPP PR PRN (06:50)
[2023-01-22] MEDS ORDERED: Acetaminophen 500 MG TAB PO PRN (06:50)
[2023-01-22] MEDS ORDERED: Sodium Chloride 0.65% Nasal 44 ML BOT EA NARE PRN (06:50)
[2023-01-22] MEDS ORDERED: Bisacodyl 5 MG TAB PO PRN (06:50)
[2023-01-22] MEDS ORDERED: Ondansetron ODT 4 MG TAB PO PRN (06:50)
[2023-01-22] MEDS ORDERED: Artificial Tear Sol 15 ML BOT EA EYE PRN (06:50)
[2023-01-22] MEDS ORDERED: Dextrose 50% Abboject 50 ML SYRINGE SLOW IVP PRN (07:21)
[2023-01-22] MEDS: Doxycycline 100 MG CAP PO SCH ×2 (07:56→21:34)
[2023-01-22] MEDS: Carvedilol 25 MG TAB PO SCH ×2 (07:56→21:34)
[2023-01-22] MEDS: Furosemide 20 MG TAB PO SCH (07:57)
[2023-01-22] MEDS: Potassium Chloride 10 MEQ TAB PO SCH ×2 (07:57→21:34)
[2023-01-22] MEDS: FLUoxetine HCl 20 MG CAP PO SCH (07:57)
[2023-01-22] MEDS: Hydrochlorothiazide 25 MG TAB PO SCH (07:57)
[2023-01-22] MEDS ORDERED: predniSONE 20 MG TAB PO SCH (08:00)
[2023-01-22] MEDS: Lisinopril 20 MG TAB PO SCH (08:01)
[2023-01-22] MEDS: HumaLOG 300 UNITS/3 ML VIAL SC PRN (16:35)
[2023-01-22] MEDS: Melatonin 3 MG TAB PO SCH (21:33)
[2023-01-22] MEDS: Atorvastatin Calcium 20 MG TAB PO SCH (21:34)
[2023-01-22] MEDS: Amlodipine 5 MG TAB PO SCH (21:34)
[2023-01-23] MEDS: Ipratropium/Albuterol 3 ML NEB NEB SCH ×4 (06:07→23:48)
[2023-01-23] MEDS: Carvedilol 25 MG TAB PO SCH ×2 (07:45→20:53)
[2023-01-23] MEDS: FLUoxetine HCl 20 MG CAP PO SCH (07:46)
[2023-01-23] MEDS: Potassium Chloride 10 MEQ TAB PO SCH ×2 (07:46→21:02)
[2023-01-23] MEDS: Furosemide 20 MG TAB PO SCH (07:46)
[2023-01-23] MEDS: predniSONE 20 MG TAB PO SCH (07:46)
[2023-01-23] MEDS: Doxycycline 100 MG CAP PO SCH ×2 (07:47→20:53)
[2023-01-23] MEDS: Lisinopril 20 MG TAB PO SCH (08:01)
[2023-01-23] MEDS: Hydrochlorothiazide 25 MG TAB PO SCH (08:01)
[2023-01-23] MEDS: HumaLOG 300 UNITS/3 ML VIAL SC PRN ×2 (17:23→21:01)
[2023-01-23] MEDS: Melatonin 3 MG TAB PO SCH (20:53)
[2023-01-23] MEDS: Atorvastatin Calcium 20 MG TAB PO SCH (20:54)
[2023-01-23] MEDS: guaiFENesin ER 600 MG TAB PO PRN (20:54)
[2023-01-23] MEDS: Amlodipine 5 MG TAB PO SCH (21:02)
[2023-01-24] MEDS: Ipratropium/Albuterol 3 ML NEB NEB SCH ×3 (05:17→17:44)
[2023-01-24] MEDS: Potassium Chloride 10 MEQ TAB PO SCH ×2 (08:01→20:47)
[2023-01-24] MEDS: Lisinopril 20 MG TAB PO SCH (08:01)
[2023-01-24] MEDS: Carvedilol 25 MG TAB PO SCH ×2 (08:02→20:47)
[2023-01-24] MEDS: predniSONE 20 MG TAB PO SCH (08:02)
[2023-01-24] MEDS: FLUoxetine HCl 20 MG CAP PO SCH (08:02)
[2023-01-24] MEDS: Hydrochlorothiazide 25 MG TAB PO SCH (08:03)
[2023-01-24] MEDS: Doxycycline 100 MG CAP PO SCH ×2 (08:03→20:47)
[2023-01-24] MEDS: Furosemide 20 MG TAB PO SCH (08:03)
[2023-01-24] MEDS: Atorvastatin Calcium 20 MG TAB PO SCH (20:46)
[2023-01-24] MEDS: Amlodipine 5 MG TAB PO SCH (20:46)
[2023-01-24] MEDS: Melatonin 3 MG TAB PO SCH (20:47)
[2023-01-24] MEDS: HumaLOG 300 UNITS/3 ML VIAL SC PRN (20:50)
[2023-01-25] MEDS: Ipratropium/Albuterol 3 ML NEB NEB SCH ×4 (00:24→17:48)
[2023-01-25] MEDS: Furosemide 20 MG TAB PO SCH (08:19)
[2023-01-25] MEDS: FLUoxetine HCl 20 MG CAP PO SCH (08:19)
[2023-01-25] MEDS: predniSONE 20 MG TAB PO SCH (08:19)
[2023-01-25] MEDS: Potassium Chloride 10 MEQ TAB PO SCH ×2 (08:19→20:25)
[2023-01-25] MEDS: Hydrochlorothiazide 25 MG TAB PO SCH (08:19)
[2023-01-25] MEDS: Carvedilol 25 MG TAB PO SCH ×2 (08:19→20:25)
[2023-01-25] MEDS: Lisinopril 20 MG TAB PO SCH (08:22)
[2023-01-25] MEDS: Amlodipine 5 MG TAB PO SCH (20:24)
[2023-01-25] MEDS: Atorvastatin Calcium 20 MG TAB PO SCH (20:25)
[2023-01-25] MEDS: Melatonin 3 MG TAB PO SCH (20:25)
[2023-01-26] MEDS: Ipratropium/Albuterol 3 ML NEB NEB SCH ×4 (02:00→17:39)
[2023-01-26 05:40] LABS: #Lymphocytes 1.3 thou/uL (1.20-3.40); #Monocytes 0.9 thou/uL (0.11-0.59); %Basophils 0.3 % (0.0-1.0); %Eosinophils 0.2 % (0.0-10.0); %Monocytes 6.7 % (0.0-10.0); %Neutrophils 82.8 % (42.0-75.0); Mean Corpuscular HGB CONC 31.3 g/dL (32.0-36.0); Mean Corpuscular Volume 92.7 fl (78.0-98.0); Mean Platelet Volume 9.3 fL (7.4-10.4); Platelet Count 280 10x3/uL (130-400); RBC Distribution Width 15.8 % (11.5-14.5); Red Blood Cell (RBC) Count 3.79 mill/uL (4.20-5.40); White Blood Cell (WBC) Count 13.3 10x3/uL (4.8-10.8)
[2023-01-26 05:51] LABS: BUN (Urea Nitrogen) 36 mg/dL (9.8-20.1); Calc. Creatinine Clearance 63 mL/min (70-130); Calcium 9.2 mg/dL (7.8-10.44); Estimated GFR 68; Glucose 116 mg/dL (83-110)
[2023-01-26 05:55] LABS: Chloride 91 mmol/L (98-107); Potassium 3.5 mmol/L (3.5-5.1); Sodium 137 mmol/L (136-145)
[2023-01-26 06:09] LABS: Carbon Dioxide 34 mmol/L (23-31)
[2023-01-26] MEDS: Potassium Chloride 10 MEQ TAB PO SCH ×2 (08:00→20:30)
[2023-01-26] MEDS: Carvedilol 25 MG TAB PO SCH ×2 (08:00→20:31)
[2023-01-26] MEDS: predniSONE 20 MG TAB PO SCH (08:01)
[2023-01-26] MEDS: Hydrochlorothiazide 25 MG TAB PO SCH (08:01)
[2023-01-26] MEDS: FLUoxetine HCl 20 MG CAP PO SCH (08:01)
[2023-01-26] MEDS: Furosemide 20 MG TAB PO SCH (08:01)
[2023-01-26] MEDS: Lisinopril 20 MG TAB PO SCH (08:58)
[2023-01-26] MEDS: HumaLOG 300 UNITS/3 ML VIAL SC PRN (16:33)
[2023-01-26] MEDS: Atorvastatin Calcium 20 MG TAB PO SCH (20:30)
[2023-01-26] MEDS: Amlodipine 5 MG TAB PO SCH (20:30)
[2023-01-26] MEDS: Melatonin 3 MG TAB PO SCH (20:31)
[2023-01-27] MEDS: Ipratropium/Albuterol 3 ML NEB NEB SCH ×5 (01:06→23:59)
[2023-01-27] MEDS: FLUoxetine HCl 20 MG CAP PO SCH (08:30)
[2023-01-27] MEDS: Carvedilol 25 MG TAB PO SCH ×2 (08:30→22:06)
[2023-01-27] MEDS: Potassium Chloride 10 MEQ TAB PO SCH ×2 (08:31→22:06)
[2023-01-27] MEDS: predniSONE 20 MG TAB PO SCH (08:31)
[2023-01-27] MEDS: Furosemide 20 MG TAB PO SCH (08:31)
[2023-01-27] MEDS: Hydrochlorothiazide 25 MG TAB PO SCH (08:31)
[2023-01-27] MEDS: Lisinopril 20 MG TAB PO SCH (08:33)
[2023-01-27] MEDS: Amlodipine 5 MG TAB PO SCH (22:05)
[2023-01-27] MEDS: Atorvastatin Calcium 20 MG TAB PO SCH (22:05)
[2023-01-27] MEDS: Melatonin 3 MG TAB PO SCH (22:06)
[2023-01-27] MEDS: HumaLOG 300 UNITS/3 ML VIAL SC PRN (22:17)
[2023-01-28] MEDS: Ipratropium/Albuterol 3 ML NEB NEB SCH ×3 (06:29→21:25)
[2023-01-28] MEDS: Carvedilol 25 MG TAB PO SCH ×2 (08:50→21:27)
[2023-01-28] MEDS: Furosemide 20 MG TAB PO SCH (08:50)
[2023-01-28] MEDS: Potassium Chloride 10 MEQ TAB PO SCH ×2 (08:51→21:26)
[2023-01-28] MEDS: predniSONE 20 MG TAB PO SCH (08:51)
[2023-01-28] MEDS: Hydrochlorothiazide 25 MG TAB PO SCH (08:51)
[2023-01-28] MEDS: FLUoxetine HCl 20 MG CAP PO SCH (08:51)
[2023-01-28] MEDS: Lisinopril 20 MG TAB PO SCH (08:52)
[2023-01-28] MEDS: HumaLOG 300 UNITS/3 ML VIAL SC PRN (17:58)
[2023-01-28] MEDS: Amlodipine 5 MG TAB PO SCH (21:26)
[2023-01-28] MEDS: Melatonin 3 MG TAB PO SCH (21:27)
[2023-01-28] MEDS: Atorvastatin Calcium 20 MG TAB PO SCH (21:27)
[2023-01-29] MEDS: Ipratropium/Albuterol 3 ML NEB NEB SCH ×4 (00:28→17:31)
[2023-01-29] MEDS: FLUoxetine HCl 20 MG CAP PO SCH (09:35)
[2023-01-29] MEDS: Furosemide 20 MG TAB PO SCH (09:35)
[2023-01-29] MEDS: Lisinopril 20 MG TAB PO SCH (09:36)
[2023-01-29] MEDS: Potassium Chloride 10 MEQ TAB PO SCH ×2 (09:36→21:21)
[2023-01-29] MEDS: predniSONE 20 MG TAB PO SCH (09:37)
[2023-01-29] MEDS: Hydrochlorothiazide 25 MG TAB PO SCH (09:37)
[2023-01-29] MEDS: Carvedilol 25 MG TAB PO SCH ×2 (09:37→21:20)
[2023-01-29] MEDS: HumaLOG 300 UNITS/3 ML VIAL SC PRN (17:30)
[2023-01-29] MEDS: Melatonin 3 MG TAB PO SCH (21:20)
[2023-01-29] MEDS: Amlodipine 5 MG TAB PO SCH (21:21)
[2023-01-29] MEDS: Atorvastatin Calcium 20 MG TAB PO SCH (21:22)
[2023-01-30] MEDS: Ipratropium/Albuterol 3 ML NEB NEB SCH ×4 (00:44→18:59)
[2023-01-30] MEDS: Hydrochlorothiazide 25 MG TAB PO SCH (09:05)
[2023-01-30] MEDS: Carvedilol 25 MG TAB PO SCH ×2 (09:05→20:46)
[2023-01-30] MEDS: FLUoxetine HCl 20 MG CAP PO SCH (09:05)
[2023-01-30] MEDS: Furosemide 20 MG TAB PO SCH (09:05)
[2023-01-30] MEDS: Potassium Chloride 10 MEQ TAB PO SCH ×2 (09:05→20:46)
[2023-01-30] MEDS: predniSONE 20 MG TAB PO SCH (09:06)
[2023-01-30] MEDS: Lisinopril 20 MG TAB PO SCH (09:20)
[2023-01-30] MEDS: HumaLOG 300 UNITS/3 ML VIAL SC PRN (16:09)
[2023-01-30] MEDS: Amlodipine 5 MG TAB PO SCH (20:45)
[2023-01-30] MEDS: Melatonin 3 MG TAB PO SCH (20:45)
[2023-01-30] MEDS: Atorvastatin Calcium 20 MG TAB PO SCH (20:46)
[2023-01-31] MEDS: Ipratropium/Albuterol 3 ML NEB NEB SCH ×5 (00:46→20:26)
[2023-01-31 05:14] LABS: #Basophils 0.1 thou/uL (0.0-0.2); #Eosinphils 0.2 thou/uL (0.0-0.7); #Lymphocytes 1.8 thou/uL (1.20-3.40); #Monocytes 0.8 thou/uL (0.11-0.59); #Neutrophils 8.7 thou/uL (1.40-6.50); %Basophils 0.6 % (0.0-1.0); %Eosinophils 1.3 % (0.0-10.0); %Lymphocytes 15.5 % (21.0-51.0); %Monocytes 6.7 % (0.0-10.0); %Neutrophils 75.9 % (42.0-75.0); Mean Corpuscular HGB CONC 30.9 g/dL (32.0-36.0); Mean Corpuscular Hemoglobin 28.5 pg (27.0-31.0); Mean Corpuscular Volume 92.2 fl (78.0-98.0); Mean Platelet Volume 8.6 fL (7.4-10.4); Platelet Count 264 10x3/uL (130-400); RBC Distribution Width 15.9 % (11.5-14.5); Red Blood Cell (RBC) Count 3.85 mill/uL (4.20-5.40); White Blood Cell (WBC) Count 11.4 10x3/uL (4.8-10.8)
[2023-01-31 05:26] LABS: BUN (Urea Nitrogen) 32 mg/dL (9.8-20.1); Calc. Creatinine Clearance 53 mL/min (70-130); Calcium 8.9 mg/dL (7.8-10.44); Estimated GFR 55; Glucose 107 mg/dL (83-110)
[2023-01-31 05:38] LABS: Chloride 90 mmol/L (98-107); Potassium 3.2 mmol/L (3.5-5.1); Sodium 137 mmol/L (136-145)
[2023-01-31 05:45] LABS: Carbon Dioxide 37 mmol/L (23-31)
[2023-01-31 05:47] LABS: Anion Gap 10 mmol/L (10-20)
[2023-01-31] MEDS: Potassium Chloride 10 MEQ TAB PO SCH ×2 (08:13→20:24)
[2023-01-31] MEDS: predniSONE 20 MG TAB PO SCH (08:13)
[2023-01-31] MEDS: Hydrochlorothiazide 25 MG TAB PO SCH (08:13)
[2023-01-31] MEDS: FLUoxetine HCl 20 MG CAP PO SCH (08:13)
[2023-01-31] MEDS: Furosemide 20 MG TAB PO SCH (08:13)
[2023-01-31] MEDS: Carvedilol 25 MG TAB PO SCH ×2 (08:13→20:24)
[2023-01-31] MEDS: Lisinopril 20 MG TAB PO SCH (08:16)
[2023-01-31] MEDS: HumaLOG 300 UNITS/3 ML VIAL SC PRN (16:41)
[2023-01-31] MEDS: Atorvastatin Calcium 20 MG TAB PO SCH (20:24)
[2023-01-31] MEDS: Melatonin 3 MG TAB PO SCH (20:24)
[2023-01-31] MEDS: Amlodipine 5 MG TAB PO SCH (20:24)
[2023-02-01 05:05] VITALS: BMI 31.4
[2023-02-01] MEDS: Ipratropium/Albuterol 3 ML NEB NEB SCH ×2 (05:42→13:15)
[2023-02-01 08:14] VITALS: TEMP 98.1
[2023-02-01] MEDS: Lisinopril 20 MG TAB PO SCH (09:14)
[2023-02-01] MEDS: Furosemide 20 MG TAB PO SCH (09:14)
[2023-02-01] MEDS: Potassium Chloride 10 MEQ TAB PO SCH (09:15)
[2023-02-01] MEDS: FLUoxetine HCl 20 MG CAP PO SCH (09:15)
[2023-02-01] MEDS: Carvedilol 25 MG TAB PO SCH (09:15)
[2023-02-01] MEDS: Hydrochlorothiazide 25 MG TAB PO SCH (09:15)
[2023-02-01 09:16] VITALS: BP 128/61
== END 2023-02-01 16:38 | disposition home health service (06) | DRG 948 ==
LOC: NAV ACUTE 17:16
PROVIDERS: ADMIT Family Medicine; ATTEND Family Medicine
DX: R53.1 Weakness (principal); I50.32 Chronic diastolic (congestive) heart failure; J96.11 Chronic respiratory failure with hypoxia; Z20.822 Contact with and (suspected) exposure to COVID-19; E78.5 Hyperlipidemia, unspecified; E11.9 Type 2 diabetes mellitus without complications; E66.9 Obesity, unspecified; I11.0 Hypertensive heart disease with heart failure; Z98.41 Cataract extraction status, right eye; Z98.42 Cataract extraction status, left eye; Z79.899 Other long term (current) drug therapy; Z79.52 Long term (current) use of systemic steroids; Z87.891 Personal history of nicotine dependence; Z87.01 Personal history of pneumonia (recurrent); Z68.31 Body mass index [BMI] 31.0-31.9, adult; J44.9 Chronic obstructive pulmonary disease, unspecified
CPT/HCPCS: 36415; 36416; 80048; 85025; 87811; J1650; J1815; J7512; J7620

== ENCOUNTER 2024-06-09 13:15 | Emergency (ER) | payer MEDICARE ==
[2024-06-09 14:02] LABS: #Basophils 0.2 thou/uL (0.0-0.2); #Eosinphils 0.1 thou/uL (0.0-0.7); #Lymphocytes 1.2 thou/uL (1.20-3.40); #Monocytes 1.2 thou/uL (0.11-0.59); #Neutrophils 14.4 thou/uL (1.40-6.50); %Eosinophils 0.9 % (0.0-10.0); %Lymphocytes 6.9 % (21.0-51.0); %Monocytes 6.9 % (0.0-10.0); %Neutrophils 84.3 % (42.0-75.0); ALT (SGPT) 162 U/L (8-55); AST (SGOT) 100 U/L (5-34); Albumin 3.8 g/dL (3.4-4.8); Alkaline Phosphatase 123 U/L (40-110); Anion Gap 20 mmol/L (10-20); BUN (Urea Nitrogen) 25 mg/dL (9.8-20.1); Calc. Creatinine Clearance 0 mL/min (70-130); Calcium 9.3 mg/dL (7.8-10.44); Carbon Dioxide 25 mmol/L (23-31); Chloride 102 mmol/L (98-107); Estimated GFR 60; Globulin 2.5 g/dL (2.4-3.5); Glucose 132 mg/dL (83-110); Hematocrit 34.9 % (36.0-47.0); Hemoglobin 9.5 g/dL (12.0-16.0); Mean Corpuscular HGB CONC 27.2 g/dL (32.0-36.0); Mean Corpuscular Hemoglobin 20.4 pg (27.0-31.0); Mean Platelet Volume 7.3 fL (7.4-10.4); Platelet Count 342 10x3/uL (130-400); Potassium 3.8 mmol/L (3.5-5.1); Protein, Total 6.3 g/dL (5.8-8.1); RBC Distribution Width 16.7 % (11.5-14.5); Red Blood Cell (RBC) Count 4.65 mill/uL (4.20-5.40); Sodium 143 mmol/L (136-145)
[2024-06-09 14:03] LABS: Troponin I 0.065 ng/mL (< 0.028)
[2024-06-09] MEDS ORDERED: Furosemide 20 MG (2 mL) VIAL ONE (14:10)
[2024-06-09] MEDS ORDERED: Ipratropium/Albuterol 3 ML NEB ONE (14:10)
[2024-06-09] MEDS ORDERED: Hydrocortisone Sod Succ/PF 100 mg/2 ml Vial ONE (14:10)
[2024-06-09] MEDS ORDERED: Aspirin Chewable 81 MG TAB ONE (14:36)
== END 2024-06-09 16:35 | disposition short-term general hospital (02) ==
LOC: NAV ERS 13:15
DX: D64.9 Anemia, unspecified (principal); J44.9 Chronic obstructive pulmonary disease, unspecified; I11.0 Hypertensive heart disease with heart failure; I50.9 Heart failure, unspecified; R79.89 Other specified abnormal findings of blood chemistry; R74.01 Elevation of levels of liver transaminase levels; Z87.891 Personal history of nicotine dependence; Z79.899 Other long term (current) drug therapy
CPT/HCPCS: 71045; 80053; 83880; 84484; 85025; 93005; 94660; 94760; J1720; J1940; 96374; 96375; J7620

== ENCOUNTER 2024-06-16 07:40 | Inpatient (IN) | payer MEDICARE ==
[2024-06-16] MEDS ORDERED: Nitroglycerin 0.4 MG TAB (25 Tab Bottle) SL PRN (13:31)
[2024-06-16] MEDS ORDERED: Ondansetron ODT 4 MG TAB SL PRN (13:35)
[2024-06-16] MEDS ORDERED: Senokot S 8.6-50 MG TAB PO PRN (13:35)
[2024-06-16] MEDS ORDERED: Acetaminophen 325 MG TAB PO PRN (13:35)
[2024-06-16] MEDS ORDERED: Bisacodyl 5 MG TAB PO PRN (13:35)
[2024-06-16 14:37] VITALS: BMI 27.6
[2024-06-16] MEDS: Furosemide 40 MG TAB PO SCH (15:07)
[2024-06-16] MEDS: Carvedilol 3.125 MG TAB PO SCH (17:38)
[2024-06-16] MEDS: Budesonide 0.5 MG/2 ML NEB INH SCH (17:38)
[2024-06-16] MEDS: Arformoterol 15 MCG/2 ML NEB NEB SCH (17:44)
[2024-06-16] MEDS: Apixaban 5 MG TAB PO SCH (21:04)
[2024-06-16] MEDS: Atorvastatin Calcium 20 MG TAB PO SCH (21:04)
[2024-06-16] MEDS: Magnesium Oxide 400 MG TAB PO SCH (21:04)
[2024-06-16] MEDS: Melatonin 3 MG TAB PO PRN (21:06)
[2024-06-17] MEDS: Lisinopril 10 MG TAB PO SCH (00:20)
[2024-06-17 05:50] LABS: #Basophils 0.1 thou/uL (0.0-0.2); #Eosinphils 0.9 thou/uL (0.0-0.7); #Lymphocytes 1.3 thou/uL (1.20-3.40); #Monocytes 1.1 thou/uL (0.11-0.59); #Neutrophils 10.4 thou/uL (1.40-6.50); %Basophils 0.9 % (0.0-1.0); %Eosinophils 6.7 % (0.0-10.0); %Lymphocytes 9.4 % (21.0-51.0); %Neutrophils 75.1 % (42.0-75.0); Hematocrit 31.9 % (36.0-47.0); Hemoglobin 9.4 g/dL (12.0-16.0); Mean Corpuscular HGB CONC 29.4 g/dL (32.0-36.0); Mean Corpuscular Hemoglobin 21.5 pg (27.0-31.0); Mean Corpuscular Volume 73.2 fl (78.0-98.0); Platelet Count 273 10x3/uL (130-400); RBC Distribution Width 18.9 % (11.5-14.5); Red Blood Cell (RBC) Count 4.35 mill/uL (4.20-5.40); White Blood Cell (WBC) Count 13.8 10x3/uL (4.8-10.8)
[2024-06-17 06:11] LABS: ALT (SGPT) 31 U/L (8-55); AST (SGOT) 19 U/L (5-34); Albumin 2.9 g/dL (3.4-4.8); Alkaline Phosphatase 93 U/L (40-110); Anion Gap 12 mmol/L (10-20); BUN (Urea Nitrogen) 27 mg/dL (9.8-20.1); Bilirubin, Total 0.8 mg/dL (0.2-1.2); Calc. Creatinine Clearance 53 mL/min (70-130); Carbon Dioxide 34 mmol/L (23-31); Chloride 98 mmol/L (98-107); Estimated GFR 61; Globulin 2.3 g/dL (2.4-3.5); Glucose 107 mg/dL (83-110); Potassium 4.1 mmol/L (3.5-5.1); Protein, Total 5.2 g/dL (5.8-8.1); Sodium 140 mmol/L (136-145)
[2024-06-17] MEDS: Multivitamin W/ Minerals 1 TAB PO SCH (08:57)
[2024-06-17] MEDS: Ferrous Sulfate 325 MG TAB PO SCH (08:57)
[2024-06-17] MEDS: FLUoxetine HCl 20 MG CAP PO SCH (08:58)
[2024-06-17] MEDS: Pantoprazole DR 40 MG TAB PO SCH (08:58)
[2024-06-17] MEDS: Potassium Chloride 10 MEQ TAB PO SCH (08:58)
[2024-06-17] MEDS: Spironolactone 25 MG TAB PO SCH (08:59)
[2024-06-17 11:20] VITALS: BMI 27.3
[2024-06-17] MEDS: Ipratropium/Albuterol 3 ML NEB NEB PRN (12:38)
[2024-06-19] MEDS: Apixaban 5 MG TAB PO SCH (20:53)
[2024-06-20] MEDS: Carvedilol 3.125 MG TAB PO SCH (17:28)
[2024-06-20] MEDS: Lisinopril 10 MG TAB PO SCH (20:40)
[2024-06-21 06:07] LABS: #Basophils 0.2 thou/uL (0.0-0.2); #Eosinphils 0.9 thou/uL (0.0-0.7); #Lymphocytes 1.2 thou/uL (1.20-3.40); #Monocytes 1.3 thou/uL (0.11-0.59); %Basophils 1.6 % (0.0-1.0); %Eosinophils 6.4 % (0.0-10.0); %Lymphocytes 8.6 % (21.0-51.0); %Monocytes 9.9 % (0.0-10.0); %Neutrophils 73.6 % (42.0-75.0); Hematocrit 34.1 % (36.0-47.0); Hemoglobin 9.9 g/dL (12.0-16.0); Mean Corpuscular HGB CONC 28.9 g/dL (32.0-36.0); Mean Corpuscular Hemoglobin 21.5 pg (27.0-31.0); Mean Corpuscular Volume 74.3 fl (78.0-98.0); Mean Platelet Volume 7.9 fL (7.4-10.4); Platelet Count 344 10x3/uL (130-400); RBC Distribution Width 19.8 % (11.5-14.5); Red Blood Cell (RBC) Count 4.59 mill/uL (4.20-5.40); White Blood Cell (WBC) Count 13.6 10x3/uL (4.8-10.8)
[2024-06-21 06:17] LABS: Anion Gap 13 mmol/L (10-20); BUN (Urea Nitrogen) 26 mg/dL (9.8-20.1); Calc. Creatinine Clearance 48 mL/min (70-130); Calcium 9.3 mg/dL (7.8-10.44); Carbon Dioxide 35 mmol/L (23-31); Chloride 95 mmol/L (98-107); Estimated GFR 54; Glucose 101 mg/dL (83-110); Potassium 4.4 mmol/L (3.5-5.1); Sodium 139 mmol/L (136-145)
[2024-06-21] MEDS: Spironolactone 25 MG TAB PO SCH (08:45)
[2024-06-24 06:11] LABS: Hematocrit 33.5 % (36.0-47.0); Hemoglobin 9.4 g/dL (12.0-16.0); Platelet Count 393 10x3/uL (130-400)
[2024-06-24] MEDS: predniSONE 20 MG TAB PO SCH (09:40)
[2024-06-25] MEDS: predniSONE 20 MG TAB PO SCH (08:59)
[2024-06-28 05:49] LABS: Anisocytosis MODERATE=16-30 cells (100X) (0-5/hpf); Band 2 % (5-11); Hematocrit 37.5 % (36.0-47.0); Hemoglobin 10.8 g/dL (12.0-16.0); Hypochromia SLIGHT = 6-15 cells (100X) (0-5/hpf); Lymphocytes 3 % (21-51); MDiff Complete? YES; Mean Corpuscular HGB CONC 28.7 g/dL (32.0-36.0); Mean Corpuscular Volume 76.4 fl (78.0-98.0); Mean Platelet Volume 6.9 fL (7.4-10.4); Monocytes 3 % (0-10); Neutrophil 92 % (42-75); Ovalocytes SLIGHT = 2-5 cells (100X) (0-1/hpf); Platelet Count 555 10x3/uL (130-400); RBC Distribution Width 21.8 % (11.5-14.5); Red Blood Cell (RBC) Count 4.91 mill/uL (4.20-5.40); Stomatocytes SLIGHT = 2-5 cells (100X) (0-1/hpf); White Blood Cell (WBC) Count 28.3 10x3/uL (4.8-10.8)
[2024-06-28 05:51] LABS: Anion Gap 18 mmol/L (10-20); BUN (Urea Nitrogen) 34 mg/dL (9.8-20.1); Calc. Creatinine Clearance 49 mL/min (70-130); Calcium 9.7 mg/dL (7.8-10.44); Carbon Dioxide 35 mmol/L (23-31); Chloride 94 mmol/L (98-107); Estimated GFR 56; Glucose 86 mg/dL (83-110); Potassium 3.9 mmol/L (3.5-5.1); Sodium 143 mmol/L (136-145)
[2024-06-28 07:54] VITALS: BP 101/64; TEMP 98.2
== END 2024-06-28 12:40 | disposition short-term general hospital (02) | DRG 947 ==
LOC: NAV ACUTE 14:00
PROVIDERS: ADMIT Family Medicine; ATTEND Family Medicine
DX: R53.81 Other malaise (principal); I26.99 Other pulmonary embolism without acute cor pulmonale; J96.21 Acute and chronic respiratory failure with hypoxia; J18.9 Pneumonia, unspecified organism; I50.32 Chronic diastolic (congestive) heart failure; I11.0 Hypertensive heart disease with heart failure; E78.5 Hyperlipidemia, unspecified; E11.9 Type 2 diabetes mellitus without complications; Z66 Do not resuscitate; J44.9 Chronic obstructive pulmonary disease, unspecified; F41.9 Anxiety disorder, unspecified; Z98.41 Cataract extraction status, right eye; Z98.42 Cataract extraction status, left eye; Z95.5 Presence of coronary angioplasty implant and graft; Z87.891 Personal history of nicotine dependence; Z79.899 Other long term (current) drug therapy; Z79.01 Long term (current) use of anticoagulants
CPT/HCPCS: 36415; 71045; 71046; 80048; 80053; 85014; 85018; 85025; 85049; 94640; J7512; J7620; J7626

== ENCOUNTER 2024-06-28 11:14 | Emergency (ER) | payer MEDICARE ==
[2024-06-28] MEDS ORDERED: Cefepime 2 GM VIAL ONE (11:41)
[2024-06-28] MEDS ORDERED: Sodium Chloride 0.9% 100 ML ONE (11:41)
[2024-06-28 11:51] LABS: INR-International Normal Ratio 1.4; Prothrombin Time 17.5 sec (12.0-14.7)
[2024-06-28 11:52] LABS: PTT 32.5 sec (22.9-36.1)
[2024-06-28 12:02] LABS: Base Excess-Venous 11.8 mmol/L (-2.0 to 3.0); Bicarbonate (HCO3v) 38.1 mmol/L (22.0-28.0); CO2 Tension (PvCO2) 55.6 mmHg (42.0-51.0); Calcium, Ionized 1.14 mmol/L (1.15-1.33); Chloride 93 mmol/L (98-107); Hemoglobin - Calc 13.4 g/dL (12.0-16.0); Potassium 3.6 mmol/L (3.5-5.1); Sodium 137 mmol/L (138-145); T. Carbon Dioxide 39.8 mmol/L (22.0-28.0); vO2 Saturation-calc 58.3 % (60.0-85.0)
[2024-06-28] MEDS ORDERED: LevoFLOXacin 750 mg/D5W 150 ml Premix Bag ONE (12:12)
[2024-06-28 12:44] LABS: Influenza A by NAA Not Detected (NotDetected); Influenza B by NAA Not Detected (NotDetected); SARS-CoV-2 NAA Rapid Test Not Detected (NotDetected)
== END 2024-06-28 12:41 | disposition short-term general hospital (02) ==
LOC: NAV ERS 11:14
DX: A41.9 Sepsis, unspecified organism (principal); R65.20 Severe sepsis without septic shock; J96.20 Acute and chronic respiratory failure, unspecified whether with hypoxia or hypercapnia; J18.9 Pneumonia, unspecified organism; I11.0 Hypertensive heart disease with heart failure; I50.9 Heart failure, unspecified; J44.9 Chronic obstructive pulmonary disease, unspecified; Z87.891 Personal history of nicotine dependence; Z79.899 Other long term (current) drug therapy; Z79.51 Long term (current) use of inhaled steroids
CPT/HCPCS: 82330; 82803; 83605; 85610; 85730; 87040; 87077; 87149; 87186; 96374; 96375; J0692; J1956

== ENCOUNTER 2024-07-03 12:06 | Inpatient (IN) | payer MEDICARE ==
[2024-07-03] MEDS ORDERED: Acetaminophen 325 MG TAB PO PRN (13:16)
[2024-07-03 15:31] VITALS: BP 88/57; TEMP 97.8
== END 2024-07-03 16:30 | disposition expired | DRG 193 ==
LOC: NAV ACUTE 13:55
PROVIDERS: ADMIT Family Medicine; ATTEND Family Medicine
DX: J18.9 Pneumonia, unspecified organism (principal); I26.99 Other pulmonary embolism without acute cor pulmonale; J96.21 Acute and chronic respiratory failure with hypoxia; I50.32 Chronic diastolic (congestive) heart failure; Z66 Do not resuscitate; J44.9 Chronic obstructive pulmonary disease, unspecified; I11.0 Hypertensive heart disease with heart failure; R53.81 Other malaise; E78.5 Hyperlipidemia, unspecified; F41.9 Anxiety disorder, unspecified; E11.9 Type 2 diabetes mellitus without complications